=== PATIENT | male | born 1945 | race Caucasian/White ===

== ENCOUNTER 2023-07-17 12:02 | Inpatient (IN) | payer MEDICARE, OTHER, SELFPAY ==
[2023-07-17] VITALS (36 sets, daily range): BP systolic 71–163; BP diastolic 58–100; PULSE 47
[2023-07-17 09:44] LABS: Glucose - Point of Care 235 mg/dl (70-99)
--- NOTE | 2023-07-17 09:51 | EDRN ---
RSI by Dr Peterson: 20 mg etomidate, 150 of succinycholine. Runs of Vtac. weak pulses.
09:58 8.0 ET tube, 24 at the lip. +color change. 100 mcg fentanyl; 10 mg vecoronium.
[2023-07-17 09:57] LABS: HCO3 16.9 mmol/L (21-28); O2 Saturation % 99.5 % (94-98); PCO2 36 mmHg (35-48); PO2 127 mmHg (83-108); pH 7.28 (7.35-7.45)
[2023-07-17 10:05] LABS: % Basophils 0.6 % (0-2); % Eosinophils 2.7 % (0-6); % Immature Granulocytes 4.2 % (0-0.5); % Lymphocytes 26.2 % (20.5-51.1); % Monocytes 3.5 % (1.7-9.3); % Neutrophils 62.8 % (42.2-75.2); Absolute Basophils 0.1 10^3/uL (0-0.2); Absolute Eosinophils 0.4 10^3/uL (0-0.7); Absolute Immature Granulocytes 0.6 10^3/uL (0-0.05); Absolute Lymphocytes 3.5 10^3/uL (1.2-3.4); Absolute Monocytes 0.5 10^3/uL (0.1-0.6); Absolute Neutrophils 8.3 10^3/uL (1.4-6.5); Hemoglobin 13.5 g/dL (13.0-18.0); Mean Corp Hgb Conc. 32.9 g/dL (33.0-37.0); Mean Corpuscular Hgb 32.3 pg (27.0-31.0); Mean Corpuscular Volume 98.1 fL (80.0-94.0); Mean Platelet Volume 10.7 fL (7.4-10.4); Nucleated Red Blood Cells % 0 % (-); Platelet Count 140 10^3/uL (130-400); Red Blood Cell Count 4.18 10^6/uL (4.70-6.10); Red Cell Dist. Width 13.1 % (11.5-14.5); White Blood Cell Count 13.3 10^3/uL (4.8-10.8)
[2023-07-17 10:12] LABS: INR 1.34; PT 16.7 Sec (11.4-14.6)
[2023-07-17 10:13] LABS: APTT 27.6 Sec (23.4-35.0)
--- NOTE | 2023-07-17 10:14 | ED.GENMED ---
History of Present Illness
General
Chief Complaint: CODE
Source: patient and ambulance crew
Exam Limitations: clinical condition and altered mental status
Time Seen by Provider: 07/17/23 09:48
Nursing documentation reviewed up to this point in time: agreed with
Travel History
Have you had any contact with someone who has COVID-19?: Unable to Answer
Do you have any symptoms of coronavirus? Fever > 100 degrees, chills, cough, shortness of breath, sore throat, loss of taste or smell, muscle aches, or headache?: Unable to Answer
History of Present Illness
History of Present Illness:
Patient with history of coronary artery disease, presents to ED after witnessed syncopal episode while playing golf this morning. Per paramedics, police arrived at scene and patient was defibrillated, shortly prior to medics arrived. When arrived
at scene, medics found the patient to be in PEA rhythm. CPR was continued and patient was given 2 doses of epinephrine, with return of spontaneous pulse. As patient was about to be intubated prehospital, to protect airway, patient had another
arrest. Ventricular fibrillation noted and patient defibrillated once again, along with 2 more doses of epinephrine. Shortly afterwards, ROSC obtained and patient transferred to ED for evaluation. Prehospital intubation attempted without success.
Temporary supraglottic airway in place and being bagged on the way to the hospital. No additional information available at this time.
Review of Systems
Review of Systems
Unable to obtain full review of systems at this time due to: due to acuity
All Other Systems: Not applicable
Phy Exam
Physical Exam
Physical Exam:
Physical Exam
General: moderate distress, acutely ill. afebrile. unresponsive.
Head: nc/at.
Neck: supple. no jvd. carotid pulse palpable.
Heart: irregular, no murmur. equal radial pulses.
Lungs: pt being bagged with equal breath sounds bilaterally.
Abdomen: normal bowel sounds. no distention
Neuro: unresponsive to verbal or physical stimuli. spontaneous contraction of the upper extremity noted.
Skin: no rash
Extremities: no edema.
Course
Orders/Labs/Results
Orders:
Orders
07/17/23 09:39
ECG [Electrocardiogram (*1)] Urgent
Reason for Study: Abnormal EKG
CT Head W/o Iv Contrast Urgent
Comment:
Reason For Exam: post arrest
EKG- Treatment ONCE
07/17/23 09:44
Fentanyl Citrate/Pf [Sublimaze] 100 mcg .ROUTE .STK-MED ONE
Propofol 1,000,000 Mcg/100 ml [Diprivan] 1,000,000 mcg in 100 ml .ROUTE .STK-MED
07/17/23 09:46
ABG [Arterial Blood Gas] Urgent
%Oxygen/Room Air: 100
Complete Blood Count/With Diff Urgent
Comprehensive Metabolic Panel Urgent
Glycohemoglobin (HgbA1c) Urgent
Magnesium Urgent
Comment: ADD ON
NT-proBNP Urgent
Comment: ADD ON
PT/INR [Prothrombin Time] Urgent
PTT Urgent
Troponin I Urgent
07/17/23 09:47
Cr Chest Portable [CR Chest Portable - 1 View] Stat
Comment:
Reason For Exam: post intubation
Reason Study Needs to be Portable: Patient Unstable
If Reason is Other, explain: room 40
07/17/23 10:00
CT Cervical Spine W/o Iv Contr Urgent
Comment:
Reason For Exam: trauma
NPO
Allow oral meds: No
Allow clear liquids: No
Etomidate [Amidate 20 mg] 20 mg IV NOW STA
Fentanyl Citrate/Pf [Sublimaze] 100 mcg IV NOW STA
Succinylcholine Chloride [Anectine] 150 mg IV NOW STA
07/17/23 10:01
Propofol 1,000,000 Mcg/100 ml [Diprivan] 1,000,000 mcg in 100 ml IV NOW
Indication:: Light Sedation
Begin Infusion:: Now
Goal:: RASS 0 to -2
Maximum dose in mcg/kg/min:: 50
Initial dose based on RASS:: Yes
If RASS is:: +1 or pt hemodynamically unstable (SBP < 90mmHg), initiate at 10 mcg/kg/min
If RASS is:: +2, initiate at 20 mcg/kg/min
If RASS is:: greater than or equal to +3, initiate at 30 mcg/kg/min
Titration Instructions:: Titrate by 5-10 mcg/kg/min every 5 minutes until RASS 0 to -2 achieved.
Taper Instructions:: If RASS is at or below goal for 4 consecutive hours decrease infusion by
Taper Instructions:: 5-10 mcg/kg/min every 2 hours to off.
Over-sedation Instructions:: If CPOT 0-2 (at goal) AND RASS -3 to -5 (below goal) decrease sedative by
Over-sedation Instructions:: 50% first. If pain score remains at goal and RASS remains below goal in
Over-sedation Instructions:: 1 hour, decrease opioid infusion by 50%.
Notify provider:: immediately if patient exhibits signs/symptoms of propofol-related
Notify provider:: infusion syndrome.
Additional Instructions:: Patient MUST be mechanically ventilated and MUST receive analgesia.
07/17/23 10:20
Electrocardiogram (*1) Stat
Comment: ALREADY DONE IN ED
07/17/23 10:24
FentaNYL 1,000 MCG/100 ML [Sublimaze] 1,000 mcg in 100 ml .ROUTE .STK-MED
07/17/23 10:36
Add On- LAB Urgent
Tests Added?: ProBNP
07/17/23 11:00
FentaNYL 1,000 MCG/100 ML [Sublimaze] 1,000 mcg in 100 ml IV PER PROTOCOL
Fentanyl Citrate/Pf [Sublimaze] 50 mcg IV [id number] PRN
07/17/23 11:05
ABG [Arterial Blood Gas] Routine
%Oxygen/Room Air: 40
Comment: vent
Etomidate [Amidate] 40 mg .ROUTE .STK-MED ONE
Sterile Water [Sterile Water For Injection] 10 ml .ROUTE .STK-MED ONE
Succinylcholine Chloride [Succinylcholine] 200 mg .ROUTE .STK-MED ONE
Vecuronium [place] [Norcuron] 10 mg .ROUTE .STK-MED ONE
07/17/23 11:23
Records Request [Obtain Records] As Directed
Dates of Information to be Released: 02/24/21-present
Type of Information Requested: Discharge Summary
H&P
Lab Results
07/17/23 11:24
Admit/Transfer Patient As Directed
Co-Sign Provider:
Level of Care: Inpatient admission
Assign to:: ICU
Physician / Group: jnuito spicer
Diagnosis: v fib arrest
Reason for Hospitalization: v fib arrest
Expected length of stay greater than two midnights?: Yes
ELOS- Estimated Length of Stay in days: 7
I certify the patient meets the requirements for IP care: Yes
Undercover Cop Consult Urgent
Consulting Provider: Beatriz Alford
Was physician already notified: Yes
Reason for consult: v fib arrest
07/17/23 11:25
Code Status As Directed
Resuscitation Status: Full Code
07/17/23 11:31
Echo 2D MMode Color/Doppler Urgent
Reason for Study: v fib arrest
CARDIOLOGY CONSULT Urgent
Consulting Provider: Kj Sotelo
Was physician already notified: Yes
07/17/23 11:34
Add On- LAB Urgent
Tests Added?: Mg level
07/17/23 12:31
Acetaminophen [Tylenol/Feverall] 650 mg RECTAL Q4HPRN PRN
Bisacodyl [Dulcolax] 10 mg RECTAL [id number] PRN
Dextrose 50%-Water [Dextrose 50% Syringe] 12.5 grams IV [id number] PRN
Docusate W/Senna [Senokot-S] 1 tablet TUBE BIDPRN PRN
Glucagon [GlucaGen] 1 mg IM PRN PRN
Insulin Aspart Corrective Mod [Novolog Flexpen-Moderate Resistance] See Protocol SC Q6
Ondansetron Injectable [Zofran] 4 mg IV Q6HPRN PRN
Polyethylene Glycol Powder [Miralax] 17 grams PO DAILYPRN PRN
07/17/23 12:31
Add On- LAB Routine
Tests Added?: HgbA1C to today's lab
Activity As Directed
Activity Level: As Tolerated
Bedside Glucose Monitoring As Directed
Frequency: Q6H
Additional Instructions:: Change to q6h if pt on TPN, tube feeding or not eating
Vital Signs As Directed
Frequency: Per unit guidelines
DX Deep Vein Thrombosis Video Routine
07/17/23 14:00
Piperacillin/Tazo 3.375 Gram [Zosyn] 3.375 gram in 50 ml IV Q6H
07/17/23 16:45
Triglycerides Routine
Comment: baseline levels with propofol infusion
07/17/23 20:00
Heparin 5,000 units SC Q12
07/18/23 06:00
Complete Blood Count/With Diff IN AM
Comprehensive Metabolic Panel IN AM
Magnesium IN AM
Abnormal Lab Results
07/17/23 07/17/23 07/17/23
09:43 09:46 11:05
WBC 13.3 H 10^3/uL
(4.8-10.8)
RBC 4.18 L 10^6/uL
(4.70-6.10)
MCV 98.1 H fL
(80.0-94.0)
MCH 32.3 H pg
(27.0-31.0)
MCHC 32.9 L g/dL
(33.0-37.0)
MPV 10.7 H fL
(7.4-10.4)
Abs Immat Gran (auto) 0.6 H 10^3/uL
(0-0.05)
Absolute Neuts (auto) 8.3 H 10^3/uL
(1.4-6.5)
Absolute Lymphs (auto) 3.5 H 10^3/uL
(1.2-3.4)
Immature Gran % 4.2 H %
(0-0.5)
PT 16.7 H Sec
(11.4-14.6)
pH 7.28 L 7.26 L
(7.35-7.45) (7.35-7.45)
pCO2 49 H mmHg
(35-48)
pO2 127 H mmHg
(83-108)
HCO3 16.9 L mmol/L
(21-28)
ABG O2 Sat (Measured) 99.5 H %
(94-98)
Carbon Dioxide 16 L mmol/L
(22-30)
Glucose 224 H mg/dl
(70-99)
Calcium 8.0 L mg/dl
(8.4-10.2)
AST 94 H U/L
(17-59)
ALT 53 H U/L
(0-50)
Troponin I 0.109 H* ng/ml
POC Glucose 235 H mg/dl
(70-99)
07/17/23 09:46
07/17/23 10:40
Vital Signs
Initial and Last Documented VS:
Initial Vital Signs
Pulse Resp BP Pulse Ox
83 20 137/98 85
07/17/23 09:40 07/17/23 09:40 07/17/23 09:40 07/17/23 09:40
Last Documented Vital Signs
Temp Pulse Resp BP Pulse Ox
92.8 F L 67 20 140/83 100
07/17/23 18:00 07/17/23 18:00 07/17/23 18:00 07/17/23 18:00 07/17/23 18:00
Procedures
Intubations
Procedure completed by: Ruddy Peterson M.D.
Method of Intubation: glidescope
Tube size (cm): 8.0
Placement confirmed by: auscutation, CXR, placement corrected and direct visualization
Breath sounds after intubation: equal
Intubation complications: no complications
MDM/Problems Addressed
MDM/Problems Addressed:
Patient evaluated immediately upon arrival, along with (Cylindrical Mixer attending). Initial EKG with diffuse ST depression, without any acute ST elevation. Patient total downtime, after discussion with paramedics, approximately 40 minutes with
2 arrests in between. As such, decision made to obtain CT head, definitive airway, and reassess.
CT head: No acute findings.
Patient intubated with use of glidoscope. Chest x-ray confirmed placement.
Patient placed on propofol and subsequently fentanyl infusion, secondary to hypotension.
Repeat EKG performed and reviewed by who also spoke with patient's daughter (POA) -does not recommend Cylindrical Mixer intervention at this time. Patient will be admitted to ICU, on cooling protocol.
ICU attending notified via [facility] text.
Discussed with patient daughters, both at bedside as well as via phone.
Patient is full code at this time.
Critical care statement: A total of 100 minutes of critical care time was provided for this patient. This includes management of unstable vital signs, evaluation of the patient at bedside, reviewing the patient's pertinent medical records,
discussion with consultants, review of old EKGs and review of pertinent medical records. This time with separate from time utilized to perform the aforementioned documented procedures
*Critical Care Note
Total Time (30-74mins, 75-104mins- exclusive of procedures): 100 min
ED Attending Note
-
Portions of this chart may have been created with voice recognition software.� Occasional wrong word or��sound alike� substitutions may have occurred due to the inherent limitations of voice recognition software.
Discharge Plan
Departure
Patient Disposition: Admit
Date of Disposition: 07/17/23
Time of Disposition: 10:57
Admit to: ICU
Presentation/result/management discussed w/ accepting MD/DO: Hospitalist
Discharge Problem:
Cardiac arrest with ventricular fibrillation
Interventions
Interventions:
*Risk Screen - Suicide Last Done: 07/17/23 12:05
*General Assessment Last Done: 07/17/23 11:21
*Neglect/Abuse Screening Last Done: 07/17/23 10:40
*Nursing Disposition Last Done: 07/17/23 12:05
ED- Cardiac Assessment Last Done: 07/17/23 10:25
ED- Pulmonary Assessment Last Done: 07/17/23 10:25
Discharge Date and Time
Discharge Date/Time: 07/17/23 12:05
[2023-07-17] MEDS: DIPRIVAN 100 IV ×4 (10:18→21:26)
[2023-07-17 10:20] LABS: ALT (SGPT) 53 U/L (0-50); AST (SGOT) 94 U/L (17-59); Albumin 3.7 g/dl (3.5-5.0); Alkaline Phosphatase 65 U/L (38-126); Blood Urea Nitrogen 15 mg/dl (9-20); Chloride 106 mmol/L (98-107); Glucose 224 mg/dl (70-99); Potassium 4.1 mmol/L (3.5-5.1); Sodium 135 mmol/L (135-145); Total Bilirubin 1.1 mg/dl (0.2-1.3); Total Protein 6.6 g/dl (6.3-8.2); eGFR > 60.00
--- NOTE | 2023-07-17 10:24 | EDRN ---
CT Done; PCXR done conforming ET placement. Dr Peterson updating family.
[2023-07-17 10:40] LABS: Troponin I 0.109 ng/ml
[2023-07-17 10:49] LABS: Carbon Dioxide 16 mmol/L (22-30)
[2023-07-17] MEDS: SUBLIMAZE 100 IV ×3 (10:58→23:16)
--- NOTE | 2023-07-17 11:07 | PHANOTE ---
Med Rec Note- patient is not able to talk at this time, patient is not registered to call family and has no ecw to call md or see med list
--- NOTE | 2023-07-17 11:10 | HPS.HSE ---
Family Physician
-
Family Physician:
Chief Complaint
-
V-fib arrest
History of Present Illness
78-year-old male with a past medical history of coronary artery disease status post CABG 1992, status post PCI with stent placement x 2, and hyperlipidemia presents after having outside hospital V-fib arrest. Apparently patient was golfing, and had
a witnessed syncopal episode. Police found him to be in V-fib arrest, he was shocked. When EMS arrived, he was in PEA rhythm. He received CPR, epinephrine, with ROSC. Temporary subglottic airway was placed. En route to the hospital, he had
another episode of V-fib, and was defibrillated again. He received 2 more doses of epinephrine, ROSC was obtained. Patient was intubated in the ER, and currently on a fentanyl drip. TTM was began in the ER.
Medical History
Past Medical History
Past Medical History: Reports Other
Additional Past Medical History:
Hyperlipidemia
Coronary artery disease
Past Surgical History: Reports Other
Additional Past Surgical History:
CABG 1992
Hernia repair
Social History
Tobacco: Non-smoker
Alcohol: Occasional
Drug: None
Family History
Family History: Not pertinent
Allergies / Home Medications
Allergies reflects when Allergies were last updated in [facility].
Home Medications with original date entered in [facility]
Allergy/Medication List:
Allergies
Allergy/AdvReac Type Severity Reaction Status Date / Time
shellfish derived Allergy Unknown Verified 07/17/23 11:10
Review of Systems
-
Unable to obtain full review of systems at this time due to: Patient Intubation
Physical Exam
Vital Signs
Vital Signs
Temp Pulse Resp BP Pulse Ox
98.2 F 79 20 106/81 96
07/17/23 10:54 07/17/23 10:24 07/17/23 10:24 07/17/23 10:24 07/17/23 10:25
Physical Exam
General: Other (Intubated, sedated)
HEENT: NormoCephalic, Anicteric and Moist mucous membranes
Respiratory: Rhonchi
Cardiac: S1/S2
GI: Soft, Non Tender and Non Distended
Musculoskeletal: No Clubbing, No Cyanosis and No Edema
Neuro: Other (Nonresponsive)
Psych: Calm
Laboratory Results
-
07/17/23 09:46
07/17/23 10:40
Laboratory Results
PT 16.7 Sec (11.4-14.6) H 07/17/23 09:46
INR 1.34 07/17/23 09:46
APTT 27.6 Sec (23.4-35.0) 07/17/23 09:46
pH Cancelled 07/17/23 10:54
pCO2 Cancelled 07/17/23 10:54
pO2 Cancelled 07/17/23 10:54
HCO3 Cancelled 07/17/23 10:54
Total Bilirubin Cancelled 07/17/23 10:40
AST Cancelled 07/17/23 10:40
ALT Cancelled 07/17/23 10:40
Alkaline Phosphatase Cancelled 07/17/23 10:40
Troponin I Cancelled 07/17/23 10:40
Impression/Plan
-
78-year-old male with a past medical history of coronary artery disease status post CABG 1992, status post PCI with stent placement x 2, and hyperlipidemia presents after having outside hospital V-fib arrest. Apparently patient was golfing, and had
a witnessed syncopal episode. Police found him to be in V-fib arrest, he was shocked. When EMS arrived, he was in PEA rhythm. He received CPR, epinephrine, with ROSC. Temporary subglottic airway was placed. En route to the hospital, he had
another episode of V-fib, and was defibrillated again. He received 2 more doses of epinephrine, ROSC was obtained. Patient was intubated in the ER, and currently on a fentanyl drip. TTM was began in the ER.
#V-fib arrest
Appreciate log sawyer, cardiology input
Echo w/ EF 31%, no active indication for catheterization
Obtain records from [facility]
Continue supportive management, continue vent management as per log sawyer, TTM
Trend troponin, EEG
#Leukocytosis
Chest x-ray shows possible aspiration, start empiric Zosyn
Check cultures, trend fever and white count
#Metabolic acidosis
Follow-up on lactic acid
#Hyperglycemia
Check hemoglobin A1c, Accu-Cheks every 6 hours, sliding scale insulin every 6 hours
#Mildly elevated LFTs
Trend
DVT prophylaxis�subcu heparin
Okay for cardioversion and defibrillation, but no CPR
Total time spent to see the patient on the floor, examine the patient, review data and lab results, discuss treatment plan with patient, nursing staff around 75 minutes.
[2023-07-17 11:25] LABS: B.E. -5.4 mmol/L; O2 Saturation % 97.9 % (94-98); PCO2 49 mmHg (35-48); PO2 91 mmHg (83-108); pH 7.26 (7.35-7.45)
[2023-07-17 11:45] LABS: NT-proBNP 1210 pg/ml
[2023-07-17 12:17] LABS: Magnesium 1.8 mg/dl (1.6-2.3)
--- NOTE | 2023-07-17 12:21 | EDRN ---
With 11:45 BP, NSS that had been a med carrier opened for bolus.
--- NOTE | 2023-07-17 12:33 | CON.INTV ---
Consultation
Consultation Request
Date/Time Consultation Requested: 07/17/23
Date/Time Consultation Performed: 07/17/23
Performing Provider: Prashanth
Reason for Consultation: ICU
Medical History
-
History of Present Illness:
Patient is a 78-year-old male with previous history of CAD, presenting to ER after witnessed syncopal episode while playing golf this morning. 911 called, police arrived and patient was reportedly in V-fib arrest, AED used which defibrillated.
EMS arrived shortly after and patient was found to be in PEA rhythm. CPR was initiated and patient was given 2 doses of epinephrine with return of spontaneous circulation. He was attempted to be intubated prehospital but airway could not be
established. Temporary subglottic airway was placed and patient was bagged on the way to the hospital. He unfortunately suffered another cardiac arrest en route. V-fib was noted and patient was defibrillated again with 2 more doses of epinephrine.
ROSC was obtained at ER evaluation. Intubated in ER and admitted to ICU following initiation of TTM.
No prior known history available, his care is mostly at [facility]
Family denies history of lung disease, lifelong nonsmoker.
Did consume alcohol prior, but he had been cutting down in the past year and drinking non-alcoholic beer.
Family notes he was in good health prior to events.
They confirm that he would not want further resuscitation if this comes to it.
Past Medical History
Past Medical History: Other (see list below)
Social History
Tobacco: Non-smoker
Alcohol: Occasional
Drug: None
Family History
Family History: Other (CVA)
Allergies / Home Medications
Allergies
Allergy/AdvReac Type Severity Reaction Status Date / Time
shellfish derived Allergy Unknown Verified 07/17/23 11:10
Review of Systems
-
Unable to Obtain full review of systems at this time due to: Patient Intubation
Vitals / Labs / Diagnostic Testing
Vital Signs
Temp Pulse Resp BP Pulse Ox
98.1 F 79 20 84/63 91
07/17/23 11:30 07/17/23 11:30 07/17/23 11:30 07/17/23 11:45 07/17/23 12:17
Lab Data
07/17/23 09:46
07/17/23 10:40
Laboratory Results
07/17/23 07/17/23 07/17/23
09:46 10:54 11:05
PT 16.7 H
INR 1.34
APTT 27.6
pH 7.28 L Cancelled 7.26 L
pCO2 36 Cancelled 49 H
pO2 127 H Cancelled 91
HCO3 16.9 L Cancelled 22.0
O2 Delivery Level Cancelled
Diagnostic Testing:
Physical Exam
-
HEENT: Normocephalic, Anicteric and Moist Mucous Membranes
Cardiovascular: S1/S2 and Regular Rhythm
Respiratory: Clear and Non-Labored Respirations
GI: Soft, Distended and Non Tender
Neurology: Other (sedated/intubated, on TTM)
Skin: Other (cold, dry)
General: Other (critically ill)
Assessment
-
Patient is a 78-year-old male with previous history of CAD, presenting to ER after witnessed syncopal episode while playing golf this morning. 911 called, police arrived and patient was reportedly in V-fib arrest, AED used which defibrillated.
EMS arrived shortly after and patient was found to be in PEA rhythm. CPR was initiated and patient was given 2 doses of epinephrine with return of spontaneous circulation. He was attempted to be intubated prehospital but airway could not be
established. Temporary subglottic airway was placed and patient was bagged on the way to the hospital. He unfortunately suffered another cardiac arrest en route. V-fib was noted and patient was defibrillated again with 2 more doses of epinephrine.
ROSC was obtained at ER evaluation. Intubated in ER and admitted to ICU following initiation of TTM.
Acute cardiac arrest/VF s/p shock x 2 and CPR, PEA after 07/17/23
Mild leukocytosis
Metabolic acidosis
Hyperglycemia
Elevated LFTs
Elevated troponins
Conditions present MEDICATION SPECIALIST
CAD status post CABG
Hyperlipidemia
Plan
Sedated/intubated, unclear if he had MS recovery with ROSC
TTM initiated
CT Head neg
Pain/sedation: fent/prop, vec for shivering, follow protocol
RASS goals: -4
Neuro eval post awakening/rewarming
Hemodynamically stable, not requiring pressors.
Cardiac history reviewed--CAD s/p CAB history, follows outpatient cards
Trops elevated, continue to trend
VF history, will need eventual cath when rewarmed
ECHO pending
Resume meds per cards
Amio if needed
Cards following
Intubated for cardiac arrest
Vent settings reviewed, adjust as needed
ABGs reviewed, adequate for now
Acidosis is metabolic
Prior history of lung disease: none, lifelong nonmoker
Supplemental O2 as indicated to maintain sats > 89%
CXR/CT reviewed indicating edema vs aspiration, Zosyn added
NPO, resume diet when able
OGT placed with red output, traumatic intubation
Repeat CXR/AXR for distension and OG placement
Linotype Mechanic recommendations
Aspiration precautions, HOB > 30 degrees
Speech therapy eval can be considered if at elevated risk
GI prophylaxis if indicated for mechanical ventilation >48 hours, prior history of GERD, stress ulcer formation in the critically ill
Creat at baseline, no history of renal disease
Void trials
Follow urine output, critical I/Os
Replete electrolytes as needed
Met acidosis likely post cardiac arrest
Possible aspiration PNA
Started on empiric antibiotics
Check cultures, if neg can likely stop
Follow fever trend, WBC count
CBC stable, no signs of bleeding or coagulopathy.
Unknown if on Eliquis
Possible GIB, on SQ heparin
DVT prophylaxis as assessed based on risk, including mechanical SCDs
Can transfuse if indicated for Hb <7, plt < 10
INR WNL
No prior h/o diabetes or thyroid disease
Monitor accuchecks PRN/SS coverage if needed
Spoke with family at bedside regarding TTM, they are price of what to expect. They confirm he should be DNR. They do not want to cause further brain injury. Would accept cardioversion or defibrillation if needed but no CPR. Updated in chart.
Diagnostic Data
Chest X-Ray: 07/17/23- 1. Endotracheal tube with tip approximately 5.5 cm above the thuy.
2. Low lung volumes. Bilateral interstitial and airspace opacities as above. Aspiration is a differential consideration. Interstitial and mild alveolar edema is also a consideration.
CT Scan: Neck- 1. No acute fracture or malalignment.
2. Multilevel mild to moderate degenerative changes thoracic spine.
3. Post endotracheal tube placement. Abnormal increased interstitial and airspace opacity in the upper lungs. Aspiration is a consideration. Interstitial and alveolar edema is possible.
HEAD - No acute intracranial abnormality identified.
Echo:
PFT's:
Reports and relevant images were personally reviewed.
-----
Critical care time 80 mins -- this includes review of history, physical exam, medications, hemodynamic/ventilator parameters, laboratory data, imaging and discussion with house staff, pharmacy, respiratory therapy, drill press set up operator radial, and nursing.
--- NOTE | 2023-07-17 12:45 | PTCARENOTE ---
After pt's arrival and complete assessment done, [facility] was started on pt at 12:35, with a starting core temp 97.7.
--- NOTE | 2023-07-17 12:50 | W.PN.CD ---
Today's Communication / Plan
-
Impression / Plan
-
Impression: 78M with established CAD (CABG ' with subsequent PCIs) with sudden . It seems he collapsed while golfing. An AED was found and, by report, delivered a shock. When EMS arrived, they found PEA. He had ROSC with EMS ACLS. Then VF/VT
with ROSC after ACLS again. Now hemodynamically relatively stable. EKG shows AF with ST depressions and first troponin is 0.1.
Plan
Sudden - concerning for SCD
- Records requested from [facility] (Louis Mueller MD)
- Tele
- Echo now
- supportive care ongoing (cooling, etc)
- no acute indication for catheterization
CAD s/p CABG
Dyslipidemia
Critically ill 36 minutes used including discussion with RN, family, and cash reconciliation specialist.
Physical Exam
Vital Signs/Labs
Vital Signs
Temp Pulse Resp BP Pulse Ox
36.7 C 79 20 84/63 91
07/17/23 11:30 07/17/23 11:30 07/17/23 11:30 07/17/23 11:45 07/17/23 12:17
07/16/23 07/17/23 07/18/23
06:59 06:59 06:59
Actual Weight 205 lb 0.478 oz
07/17/23 09:46
07/17/23 10:40
PT 16.7 Sec (11.4-14.6) H 07/17/23 09:46
INR 1.34 07/17/23 09:46
APTT 27.6 Sec (23.4-35.0) 07/17/23 09:46
Magnesium Cancelled 07/17/23 10:40
07/17/23 07/17/23
09:46 10:40
Nwz-L-Ounvlbsvmab Pept 1210 Cancelled
LAB Results
07/17/23 07/17/23
09:46 10:40
Troponin I 0.109 H* Cancelled
Data Reviewed
-
Date of Service: July 17, 2023
--- NOTE | 2023-07-17 13:00 | PTCARENOTE ---
Pt arrived from ER via stretcher s/p cardiac arrest [place]. Pt was reported to have been defibrillated with AED when police arrived. When the EMS, pt was reported to then be in PEA. Pt returned to ROSC after CPR and epi doses.
Complete assessment done and documented. Pt seen by Dr Sotelo and Dr Pratima Alford.. Pt now unresponsive, Pupils equal +2, bilat sluggish to light. Pt with sl tremors noted. HR Afib, Fentanyl at 150 mcg/hr, propofol at 50 mcg/kg/min. Pt with #8 ETT,
24 at lip. Pt suctioned for scant white secretions. Vent settings at AC 16, TV 500, peep 5, and 40%, lobes diminished throughout. L NGT to Low int suction, draining min amt of dark red drainage. + air check in stomach. Kaur cath draining mod amt
yellow urine.
[2023-07-17] MEDS: DEMEROL 12.5 MG IV ×2 (13:02→13:15)
[2023-07-17] MEDS: MAGNESIUM SULFATE 50 IV (13:09)
[2023-07-17] MEDS: SUBLIMAZE 50 MCG IV ×3 (13:36→18:53)
[2023-07-17 13:49] LABS: Glucose - Point of Care 149 mg/dl (70-99)
[2023-07-17] MEDS: TYLENOL ORAL SOLUTION 650 MG TUBE ×3 (13:50→23:19)
[2023-07-17] MEDS: BUSPAR 30 MG TUBE ×3 (13:50→23:19)
[2023-07-17] MEDS: ZOSYN 50 IV ×2 (14:03→20:05)
[2023-07-17 14:10] LABS: B.E. -6.2 mmol/L; HCO3 21.8 mmol/L (21-28); O2 Saturation % 97.2 % (94-98); PCO2 52 mmHg (35-48); PO2 84 mmHg (83-108); pH 7.23 (7.35-7.45)
[2023-07-17 14:43] LABS: Glycohemoglobin (HgbA1c) 5.5 % (4.0-5.6)
--- NOTE | 2023-07-17 14:55 | EEG.RPT ---
Electroencephalogram Report
Recording
Date of EE07/17/23
Type of EEG: Routine
Length of EEG recordin minutes
Done with Video Recording: No
Patient Status: Emergency Room
Recording Conditions: Drowsy
Hyperventilation Performed: No
Photic Stimulation Performed: Yes
Report
LESS THAN 1 HOUR EEG REPORT
LESS THAN 1 HOUR EEG INTERPRETATION:
Moderately abnormal EEG for age due to diffuse bihemispheric slowing
CLINICAL CORRELATION:
This study was suggestive of mild diffuse cortical dysfunction without focal abnormality. No seizures were recorded.
Clinical correlation is advised.
METHODS:
A 21 channel digitized electroencephalogram (EEG) was performed at the bedside. The 10/20 international system of electrode placement was used with ECG and lateral/vertical eye movements recorded. The [employer] system was utilized.
QUALITY OF STUDY:
Fair-poor due to excessive continuous muscle artifact
ELECTROENCEPHALOGRAPHER IMPRESSION(S):
Background
Amplitude: Very low beta
Anterior-Posterior Organization: Not demonstrated
Maximum: Very low beta
Asymmetry: None
Sleep
Drowsiness present
Photic Stimulation
Failed to activate the record
ECG
Normal sinus rhythm
--- NOTE | 2023-07-17 16:00 | PTCARENOTE ---
Pt reached target temp 91.4 at 15:10. Levophed 2 mcg/min was started for low BP 81/[address] Andujar. Fentanyl boluses given following protocol for sl tremors. EEG and ECHO both done at bedside. ABG showing elevated CO2, AC increased from 16 to 20.
Hands and feet covered with socks. Anesthesia and IV team called for [place] placement and PICC placement. Pt's and daughter to room and updated earlier, and presently. BIS 80.
[2023-07-17 17:11] LABS: Lactic Acid 2.6 mmol/L (0.7-2.0)
[2023-07-17 17:12] LABS: Hemoglobin 13.4 g/dL (13.0-18.0); Mean Corp Hgb Conc. 33.5 g/dL (33.0-37.0); Mean Corpuscular Hgb 32.8 pg (27.0-31.0); Mean Platelet Volume 11.4 fL (7.4-10.4); Platelet Count 111 10^3/uL (130-400); Red Blood Cell Count 4.08 10^6/uL (4.70-6.10); Red Cell Dist. Width 13.2 % (11.5-14.5); White Blood Cell Count 15.1 10^3/uL (4.8-10.8)
[2023-07-17 17:14] LABS: Triglycerides 160 mg/dl (10-149)
[2023-07-17 17:17] LABS: ALT (SGPT) 58 U/L (0-50); AST (SGOT) 111 U/L (17-59); Albumin 3.7 g/dl (3.5-5.0); Alkaline Phosphatase 64 U/L (38-126); Blood Urea Nitrogen 18 mg/dl (9-20); Calcium 8.1 mg/dl (8.4-10.2); Carbon Dioxide 21 mmol/L (22-30); Chloride 104 mmol/L (98-107); Creatine Phosphokinase 712 U/L (55-170); Glucose 154 mg/dl (70-99); Magnesium 2.5 mg/dl (1.6-2.3); Phosphorus 4.2 mg/dl (2.5-4.5); Potassium 5.3 mmol/L (3.5-5.1); Sodium 133 mmol/L (135-145); Total Bilirubin 1.2 mg/dl (0.2-1.3); Total CK 712 U/L (55-170); Total Protein 6.6 g/dl (6.3-8.2); eGFR > 60.00
[2023-07-17 17:20] LABS: Prealbumin (Transthyretin) 16.2 mg/dl (17.6-36.0)
--- NOTE | 2023-07-17 17:25 | W.PN.ANS.LIN ---
Anesthesia IV & A-Line Note
- IV/Arterial Line
Left Wrist Arrow 20 (04/27)
Diagnosis: cardiac arrest
IV Line Comments: Multiple Attempts
Comment: two attempts on right wrist; second attempt on left wrist successful.
Allens test completed pre-procedure: Yes
A-Line Comments: Sterile technique as per standard protocol, Uneventful procedure, Seldinger technique used, Ultrasound guided insertion, Multiple attempts, Biopatch applied, Unsuccessful attempt
Funtioning A-line in situ: Yes
A-line Insertion Start Time: 17:15
A-line Insertion Stop Time: 17:23
A-line in at:: 17:23
[2023-07-17] MEDS: DOPamine 400 MG 250 IV (17:37)
[2023-07-17 17:42] LABS: CKMB 32.6 ng/ml (0.0-2.4)
[2023-07-17 18:28] LABS: Glucose - Point of Care 126 mg/dl (70-99)
--- NOTE | 2023-07-17 18:30 | PTCARENOTE ---
HR had dropped to 35-45, and Dr Andujar made aware and to room. Dopamine was started at 5 mcg/min. HR quickly increased to 90-100. Levophed was weaned off. Pt presently with drips fentanyl, propofol, along with dopamine. Pt sl bucking of vent, fentanyl
bolus was given and dose adjusted. Will start vecuronium as needed. L rad nikita intact and zero'd. R upper arm DL reported to be coiled. RESEARCH COMPLIANCE SPECIALIST to room and adjusted, CXR done.
--- NOTE | 2023-07-17 19:39 | VATNOTE ---
right picc redirected per protocol. repeat cxr ordered
[2023-07-17 19:50] LABS: B.E. -5.5 mmol/L; HCO3 21.6 mmol/L (21-28); O2 Saturation % 99.2 % (94-98); PCO2 47 mmHg (35-48); PO2 122 mmHg (83-108); pH 7.27 (7.35-7.45)
[2023-07-17] MEDS: DEXTROSE 50% SYRINGE 25 GRAMS IV (20:01)
[2023-07-17] MEDS: NOVOLIN R 10 UNITS IV (20:02)
[2023-07-17] MEDS: HEPARIN 5000 UNITS SC (20:04)
[2023-07-17] MEDS: REFRESH CELLUVISC GEL 1 DROPS OPHTH (20:04)
--- NOTE | 2023-07-17 21:46 | PTCARENOTE ---
Received patient from previous shift. pt with no neuro responses. no cough, gag, or corneal reflexes. no movement in all extremities. ETT 8.0 27 at the right lip. 20/500/5/40%. bloody secretions from the ETT. a-fib on the monitor. left radial a-line
zeroed and transduced. right picc adjusted by IV team, x-ray taken.
--- NOTE | 2023-07-17 22:13 | VATNOTE ---
retracted right picc 4cm per dr. guillaume's verbal order.
[2023-07-17 22:51] LABS: Hematocrit 38.7 % (39.0-52.0); Hemoglobin 13.6 g/dL (13.0-18.0); Mean Corp Hgb Conc. 35.1 g/dL (33.0-37.0); Mean Corpuscular Hgb 32.5 pg (27.0-31.0); Mean Corpuscular Volume 92.6 fL (80.0-94.0); Mean Platelet Volume 10.7 fL (7.4-10.4); Platelet Count 111 10^3/uL (130-400); Red Blood Cell Count 4.18 10^6/uL (4.70-6.10); White Blood Cell Count 12.3 10^3/uL (4.8-10.8)
[2023-07-17 23:00] LABS: Lactic Acid 1.7 mmol/L (0.7-2.0)
[2023-07-17 23:10] LABS: ALT (SGPT) 58 U/L (0-50); AST (SGOT) 111 U/L (17-59); Albumin 3.6 g/dl (3.5-5.0); Alkaline Phosphatase 63 U/L (38-126); Blood Urea Nitrogen 19 mg/dl (9-20); Calcium 8.3 mg/dl (8.4-10.2); Carbon Dioxide 20 mmol/L (22-30); Chloride 109 mmol/L (98-107); Creatine Phosphokinase 1009 U/L (55-170); Glucose 105 mg/dl (70-99); Magnesium 2.4 mg/dl (1.6-2.3); Phosphorus 2.9 mg/dl (2.5-4.5); Potassium 3.4 mmol/L (3.5-5.1); Sodium 137 mmol/L (135-145); Total Bilirubin 1.4 mg/dl (0.2-1.3); Total CK 1009 U/L (55-170); Total Protein 6.7 g/dl (6.3-8.2); eGFR > 60.00
[2023-07-17] MEDS: KCL 50 IV (23:29)
[2023-07-18] VITALS (15 sets, daily range): BP systolic 76–113; BP diastolic 57–71; PULSE 42–78; BMI 29.4
[2023-07-18] MEDS: DIPRIVAN 100 IV ×4 (00:58→18:00)
--- NOTE | 2023-07-18 01:05 | PTCARENOTE ---
pt reasssed, pupils 2 and sluggish, no corneal response. no cough or gag. urine output increase up to 600ml/hr pale yellow. HR dropped to the 40's twice increased dopamine. no further episodes of bradycardia. tapering propofol and fentanyl as
tolerated for BSAS.
[2023-07-18] MEDS: ZOSYN 50 IV ×4 (02:07→20:10)
[2023-07-18 04:04] LABS: % Basophils 0.4 % (0-2); % Eosinophils 1.2 % (0-6); % Immature Granulocytes 0.3 % (0-0.5); % Lymphocytes 18.9 % (20.5-51.1); % Neutrophils 75.2 % (42.2-75.2); Absolute Eosinophils 0.1 10^3/uL (0-0.7); Absolute Monocytes 0.4 10^3/uL (0.1-0.6); Hematocrit 40.8 % (39.0-52.0); Hemoglobin 14.1 g/dL (13.0-18.0); Mean Corp Hgb Conc. 34.6 g/dL (33.0-37.0); Mean Corpuscular Hgb 32.6 pg (27.0-31.0); Mean Corpuscular Volume 94.2 fL (80.0-94.0); Mean Platelet Volume 10.7 fL (7.4-10.4); Nucleated Red Blood Cells % 0 % (-); Platelet Count 113 10^3/uL (130-400); Red Blood Cell Count 4.33 10^6/uL (4.70-6.10); Red Cell Dist. Width 12.6 % (11.5-14.5); White Blood Cell Count 10.6 10^3/uL (4.8-10.8)
[2023-07-18 04:10] LABS: INR 1.28; PT 16.1 Sec (11.4-14.6)
[2023-07-18 04:11] LABS: APTT 30.4 Sec (23.4-35.0)
[2023-07-18 04:26] LABS: ALT (SGPT) 52 U/L (0-50); AST (SGOT) 106 U/L (17-59); Albumin 3.7 g/dl (3.5-5.0); Alkaline Phosphatase 65 U/L (38-126); Blood Urea Nitrogen 19 mg/dl (9-20); Calcium 8.7 mg/dl (8.4-10.2); Carbon Dioxide 20 mmol/L (22-30); Chloride 111 mmol/L (98-107); Direct Bilirubin 0.6 mg/dl (0.0-0.4); Glucose 129 mg/dl (70-99); Magnesium 2.3 mg/dl (1.6-2.3); Potassium 3.1 mmol/L (3.5-5.1); Sodium 140 mmol/L (135-145); Total Bilirubin 1.6 mg/dl (0.2-1.3); Total Protein 6.6 g/dl (6.3-8.2); eGFR > 60.00
[2023-07-18 04:32] LABS: Prealbumin (Transthyretin) 16.7 mg/dl (17.6-36.0)
[2023-07-18] MEDS: DOPamine 400 MG 250 IV ×3 (04:58→20:24)
[2023-07-18] MEDS: TYLENOL ORAL SOLUTION 650 MG TUBE ×4 (05:04→23:56)
[2023-07-18] MEDS: SUBLIMAZE 100 IV ×2 (05:19→15:49)
[2023-07-18] MEDS: KCL 100 IV (05:21)
--- NOTE | 2023-07-18 06:06 | PTCARENOTE ---
corneals now present bilaterally. moving fingers on both hands but not following commands.
[2023-07-18 08:22] LABS: B.E. -4.8 mmol/L; HCO3 19.7 mmol/L (21-28); O2 Saturation % 99.2 % (94-98); PCO2 34 mmHg (35-48); PO2 121 mmHg (83-108); pH 7.37 (7.35-7.45)
--- NOTE | 2023-07-18 08:36 | W.PN.CD ---
Addendum entered and electronically signed by Kj Sotelo MD 07/18/23 14:08:
Records Received
Medications: alirocumab 150 every two weeks (no ASA listed)
Testing
Echo: 'No results recorded'
Stress test: 'Refuses stress test.'
Labs TC 253, HDL 72, LDL 166 (May 2023)
CAD with 'CABG 1992 and PTCA 2011'
Addendum entered and electronically signed by Kj Sotelo MD 07/18/23 09:55:
Discussed with his daughter
- No history of depressed EF
- Severe myalgia with statins but OK with PSCK9i. Period of time without treatment. Labeled with familial dyslipidemia.
- GOC seem to be that he recover to baseline. Not in favor of trach/PEG/SNF placement pathway. Will need to sort out with whole family if it comes to that
- updated her on cardiac plan. Deferred questions regarding current and future neurologic status to more appropriate team members.
Original Note:
Today's Communication / Plan
-
- supportive care
- records/family for background (EF, etc)
- likely LHC and ICD before d/c
Impression / Plan
-
Impression: 78M with established CAD (CABG ' with subsequent PCIs) with sudden . It seems he collapsed while golfing. An AED was found and, by report, delivered a shock. When EMS arrived, they found PEA. He had ROSC with EMS ACLS. Then VF/VT
with ROSC after ACLS again. EKG shows AF with ST depressions and peak troponin is 19.
Plan
Sudden - concerning for SCD
- Records requested from [facility] (Louis Mueller MD) - still not arrived. I will call at 9AM.
- Tele shows AF with CVR
- Echo below
- supportive care ongoing (cooling, etc)
- no acute indication for catheterization -> suspect he will get before discharge.
AF - unclear if rhythm is NSR or flutter now -> check EKG
CAD s/p CABG - medical therapy
Dyslipidemia - medical therapy
Dispo
- Critically ill 34 minutes used including discussion with RN
- Daughter/medical POA/PA arriving this AM -> will get further background from her.
Subjective:Sedated and intubated
TTE July 16: Severely reduced left ventricular systolic function. Left ventricular ejection fraction is 31%. Regional wall motion abnormalities (below) consistent with CAD. Mild to moderate mitral regurgitation.
Physical Exam
Vital Signs/Labs
Vital Signs
Temp Pulse Resp BP Pulse Ox
33.5 C L 50 20 88/59 100
07/18/23 08:00 07/18/23 07:00 07/18/23 07:00 07/18/23 06:57 07/18/23 07:35
07/17/23 07/18/23 07/19/23
06:59 06:59 06:59
Actual Weight 199 lb 1.239 oz
PT 16.1 Sec (11.4-14.6) H 07/18/23 03:49
INR 1.28 07/18/23 03:49
APTT 30.4 Sec (23.4-35.0) 07/18/23 03:49
Magnesium Cancelled 07/18/23 04:00
Triglycerides 160 mg/dl (10-149) H 07/17/23 16:45
07/17/23 07/17/23
09:46 10:40
Sme-M-Sehzfpuqckh Pept 1210 Cancelled
LAB Results
07/17/23 07/17/23 07/17/23
09:46 10:40 16:45
Troponin I 0.109 H* Cancelled 19.800 H* D
07/17/23 07/18/23
22:42 04:00
Troponin I 18.500 H* Cancelled
Physical Exam
Constitutional: No acute distress
EENT: Anicteric
Cardiovascular: Rhythm & rate is regular, Systolic murmur absent and Diastolic murmur absent
Respiratory: Respiratory effort normal
GI: Soft
Data Reviewed
-
Date of Service: July 18, 2023
--- NOTE | 2023-07-18 08:39 | W.PN.HOSP.TC ---
Today's Communication/Plan
-
See bold
Assessment / Plan
Assessment / Plan
78-year-old male with a past medical history of coronary artery disease status post CABG 1992, status post PCI with stent placement x 2, and hyperlipidemia presents after having outside hospital V-fib arrest. Apparently patient was golfing, and had
a witnessed syncopal episode. Police found him to be in V-fib arrest, he was shocked. When EMS arrived, he was in PEA rhythm. He received CPR, epinephrine, with ROSC. Temporary subglottic airway was placed. En route to the hospital, he had
another episode of V-fib, and was defibrillated again. He received 2 more doses of epinephrine, ROSC was obtained. Patient was intubated in the ER, and currently on a fentanyl drip. TTM was began in the ER.
#V-fib arrest
Appreciate inner tube tuber machine operator, cardiology input
Echo w/ EF 31%, no active indication for catheterization
Records from [facility] received
Continue vent management as per inner tube tuber machine operator, TTM
EEG reviewed
Continue dopamine drip, Levophed drip for MAP greater than 65, wean as tolerated
Will need left heart cath and ICD prior to DC
Will need neuro consult after off of sedation for neurologic recovery assessment
#Cardiogenic shock
Continue dopamine drip, Levophed drip for MAP greater than 65
#Possible atrial fibrillation
EKG shows probable atrial fibrillation, follow-up on recommendations by cardiology
#Leukocytosis
Chest x-ray shows possible aspiration, continue empiric Zosyn
Cultures pending, trend fever and white count
#Metabolic acidosis
Lactic acid normalized
#Hyperglycemia
Hemoglobin A1c 5.5, Accu-Cheks every 6 hours, sliding scale insulin every 6 hours
#Hypokalemia
Replete, recheck a.m. labs
#Mildly elevated LFTs
Trend
DVT prophylaxis�subcu heparin
Okay for cardioversion and defibrillation, but no CPR
Total time spent to see the patient on the floor, examine the patient, review data and lab results, discuss treatment plan with patient, nursing staff around 50 minutes.
Physical Exam
General: Intubated and sedated no acute distress
HEENT: Normocephalic, Atraumatic, EOMI, MMM
Respiratory: Coarse breath sounds
Cardiac: Normal S1/S2, Regular Rate and Rhythm
GI: Soft, Nontender, Nondistended, Normal Bowel Sounds
Extremities: No Clubbing, Cyanosis, or Edema
Neuro: Sedated
Anticipated Discharge: > 48 hours
Subjective/Interval History
-
Date of Service: July 18, 2023
Patient intubated and sedated.
Objective Data
-
Labs:
Laboratory Results
07/17/23 07/18/23 07/18/23
22:42 03:49 04:00
WBC 12.3 H 10.6 Cancelled
Hgb 13.6 14.1 Cancelled
Hct 38.7 L 40.8 Cancelled
Plt Count 111 L 113 L Cancelled
PT 16.1 H
INR 1.28
APTT 30.4
HCO3
Sodium 137 140 Cancelled
Potassium 3.4 L D 3.1 L Cancelled
Chloride 109 H 111 H Cancelled
Carbon Dioxide 20 L 20 L Cancelled
BUN 19 19 Cancelled
Creatinine 0.9 0.9 Cancelled
Glucose 105 H 129 H Cancelled
Calcium 8.3 L 8.7 Cancelled
Total Bilirubin 1.4 H 1.6 H Cancelled
AST 111 H 106 H Cancelled
ALT 58 H 52 H Cancelled
Alkaline Phosphatase 63 65 Cancelled
07/18/23 07/18/23 07/18/23
08:05 10:00 16:00
WBC Pending Pending
Hgb Pending Pending
Hct Pending Pending
Plt Count Pending Pending
PT
INR
APTT
HCO3 19.7 L
Sodium Pending Pending
Potassium Pending Pending
Chloride Pending Pending
Carbon Dioxide Pending Pending
BUN Pending Pending
Creatinine Pending Pending
Glucose Pending Pending
Calcium Pending Pending
Total Bilirubin Pending Pending
AST Pending Pending
ALT Pending Pending
Alkaline Phosphatase Pending Pending
07/18/23 07/18/23
20:00 22:00
WBC Pending
Hgb Pending
Hct Pending
Plt Count Pending
PT
INR
APTT
HCO3 Pending
Sodium Pending
Potassium Pending
Chloride Pending
Carbon Dioxide Pending
BUN Pending
Creatinine Pending
Glucose Pending
Calcium Pending
Total Bilirubin Pending
AST Pending
ALT Pending
Alkaline Phosphatase Pending
Vital Signs:
Vital Signs
Temp Pulse Resp BP Pulse Ox
92.3 F L 50 20 88/59 100
07/18/23 08:00 07/18/23 07:00 07/18/23 07:00 07/18/23 06:57 07/18/23 07:35
I&O
07/17/23 07/18/23 07/19/23
06:59 06:59 06:59
Intake Total 1177.1 / 1250.9 145.6 / 145.6
Output Total 3205 / 3315 150 / 150
Balance -2027.9 / -2064.1 -4.4 / -4.4
[2023-07-18] MEDS: REFRESH CELLUVISC GEL 1 DROPS OPHTH ×2 (08:40→20:10)
[2023-07-18] MEDS: PROTONIX IV 40 MG IV (08:41)
[2023-07-18] MEDS: NSS (PRESERVATIVE FREE) 10 ML IV (08:41)
[2023-07-18] MEDS: BUSPAR 30 MG TUBE ×3 (08:41→23:56)
[2023-07-18] MEDS: HEPARIN 5000 UNITS SC ×2 (08:41→20:10)
--- NOTE | 2023-07-18 09:55 | W.PN.INTV ---
Today's Communication / Plan
Recommendations
Continue with therapeutic hypothermia
Rewarm today at 3 PM
Once rewarming has been completed we need to remove him entirely from sedation and only use it prn for agitation
Keep core temperature probe attached at least another 24-48 hours s/p rewarming to monitor for fever
Check sputum Cx, blood Cx
Replete K>4, Mg>2
Wean off pressors as tolerated
If no mental status once off all sedation then will obtain repeat CT head and consider brain MRI and repeat EEG with neuro consult
Ischemic eval if he does improve
Guarded prognosis
Assessment
-
Patient is a 78-year-old male with previous history of CAD, presenting to ER after witnessed syncopal episode while playing golf this morning. 911 called, police arrived and patient was reportedly in V-fib arrest, AED used which defibrillated.
EMS arrived shortly after and patient was found to be in PEA rhythm. CPR was initiated and patient was given 2 doses of epinephrine with return of spontaneous circulation. He was attempted to be intubated prehospital but airway could not be
established. Temporary subglottic airway was placed and patient was bagged on the way to the hospital. He unfortunately suffered another cardiac arrest en route. V-fib was noted and patient was defibrillated again with 2 more doses of epinephrine.
ROSC was obtained at ER evaluation. Intubated in ER and admitted to ICU following initiation of TTM.
Acute cardiac arrest/VF s/p shock x 2 and CPR, PEA after 07/17/23
Shock on vasopressors - likely due to sedation
Aspiration PNA
Mild leukocytosis
Metabolic acidosis
Hyperglycemia
Elevated LFTs
Elevated troponin - likely due to ACS in setting of CPR (EKG with yessenia-inferolateral ST-depressions with frequent PVCs) and TTE with apex + apical segment hypokinesis
Acute HFrEF with stage III diastolic dysfunction
Mild-moderate MR with mild pHTN (PASP: 36mmHg)
Atrial fibrillation - new onset
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
CAD status post CABG
Hyperlipidemia
Plan
Sedated/intubated, unclear if he had MS recovery with ROSC
TTM initiated
CT Head neg
Pain/sedation: fent/prop, vec for shivering, follow protocol
RASS goals: -4
Neuro eval post awakening/rewarming
Hemodynamically stable, not requiring pressors.
Cardiac history reviewed--CAD s/p CAB history, follows outpatient cards
Trops elevated, continue to trend
VF history, will need eventual cath when rewarmed
ECHO reviewed
Resume meds per cards
Maintain HR<110 and >50
Amio if needed
Cards following
He will need an ischemic eval with [facility] once he is prognosticated depending if he awakens and begins to follow commands - currently there is no gag reflex or pupillary light reflex
Intubated for cardiac arrest
Vent settings reviewed, adjust as needed
ABGs reviewed, adequate for now
Acidosis is metabolic
Prior history of lung disease: none, lifelong nonmoker
Titrate FiO2 and PEEP to maintain sats > 94%
CXR/CT reviewed indicating edema vs aspiration, Zosyn added
Check sputum Cx and blood Cx
NPO, resume diet when able
OGT placed with red output, traumatic intubation --> trend Hb and continue PPI
Criminal Psychologist recommendations reviewed
Aspiration precautions, HOB > 30 degrees
GI prophylaxis is indicated
Creat at baseline, no history of renal disease
Void trials
Follow urine output, critical I/Os
Replete electrolytes as needed
Met acidosis likely post cardiac arrest
Possible aspiration PNA
Started on empiric antibiotics
Cx being checked as stated above
Follow fever trend, WBC count
CBC stable, no signs of bleeding or coagulopathy.
Possible GIB, on SQ heparin
DVT prophylaxis as assessed based on risk, including mechanical SCDs- continue HSQ
Can transfuse if indicated for Hb <7, plt < 10
INR WNL
No prior h/o diabetes or thyroid disease
Monitor accuchecks PRN/SS coverage if needed
Dr. Andujar had spoken with family at bedside regarding TTM, they are price of what to expect. They confirm he should be DNR. They do not want to cause further brain injury. Would accept cardioversion or defibrillation if needed but no CPR. Updated
in chart.
I updated the daughter today at bedside who rounded with us and I answered all her questions. Emotional support was also provided.
Critical care statement: A total of 52 minutes of critical care time was provided for this patient today. This includes management of unstable vital signs, evaluation of the patient at bedside, reviewing the patient's pertinent medical records
including radiographs, microbiology, laboratory evaluations, and discussion with primary team, consultants, pharmacy, nutrition, physical therapy, case management, charge nurse, critical care nursing, and respiratory therapy.
Diagnostic Data
Chest X-Ray: 07/17/23- 1. Endotracheal tube with tip approximately 5.5 cm above the thuy.
2. Low lung volumes. Bilateral interstitial and airspace opacities as above. Aspiration is a differential consideration. Interstitial and mild alveolar edema is also a consideration.
CT Scan: Neck- 1. No acute fracture or malalignment.
2. Multilevel mild to moderate degenerative changes thoracic spine.
3. Post endotracheal tube placement. Abnormal increased interstitial and airspace opacity in the upper lungs. Aspiration is a consideration. Interstitial and alveolar edema is possible.
HEAD - No acute intracranial abnormality identified.
Echo: 07-17-2023
Technically difficult study.
Severely reduced left ventricular systolic function. Left ventricular ejection
fraction is 31%.
Regional wall motion abnormalities (below) consistent with CAD.
Mild to moderate mitral regurgitation.
Mild tricuspid regurgitation. Estimated pulmonary artery pressure of 36 mmHg.
No prior study available for comparison.
Reports and relevant images were personally reviewed.
Subjective Dataa
Subjective Data
Date of Service:
Date of Service: July 18, 2023
Chief Complaint: Wrapper Layer And Examiner Soft Work Follow Up
Subjective:
Dopamine at 8mcg/kg/min this AM; levo off overnight but restarted this AM - now on levo at 1mcg/min. Prop at 30mcg/kg/min and fent at 100mcg/hr. He is intubated at 40% peep of 5. ETT secretions scanty. Daughter at bedside - I answered all her
questions. BP 88/59 and HR 49, SpO2 97%.
Review of Systems
General: Unobtainable - Sedation
Objective Data
Data Reviewed
Vital Signs / I&O / Oxygen:
Vital Signs
Temp Pulse Resp BP Pulse Ox
92 F L 50 20 88/59 100
07/18/23 10:00 07/18/23 07:00 07/18/23 07:00 07/18/23 06:57 07/18/23 07:35
Intake and Output
07/17/23 07/18/23 07/19/23
06:59 06:59 06:59
Intake Total 1177.1 / 1250.9 277.0 / 277.0
Output Total 3205 / 3315 355 / 355
Balance -2027.9 / -2064.1 -78.0 / -78.0
SaO2 [A/C] 100
SaO2 100
Physical Exam
General: Sweats (negative) and Other (Intubated/sedated)
HEENT: Normocephalic and Anicteric
Cardiovascular: Peripheral Edema (negative) and Other (Bradycardic)
Respiratory: Wheeze (negative), Rhonchi (negative), Non-Labored Respirations, ET Tube and Other (Mechanical/coarse breath sounds heard bilaterally)
GI: Soft and Non Distended
Neurology: Unresponsive and Other (Pupils are fixed at +5 on the left, +4 on the right with no corneal reflex bilaterally, absent pupillary light reflex, absent gag or cough reflex; no withdrawal to pain in any extremity and no spontaneous movement
seen)
Skin: Dry
Labs/Micro/Reports
Laboratory Results
07/17/23 07/17/23 07/17/23
09:46 10:54 11:05
PT 16.7 H
INR 1.34
APTT 27.6
pH Cancelled 7.26 L
pCO2 Cancelled 49 H
pO2 Cancelled 91
HCO3 Cancelled 22.0
O2 Delivery Level Cancelled
07/17/23 07/17/23 07/18/23
13:38 19:45 03:49
PT 16.1 H
INR 1.28
APTT 30.4
pH 7.23 L 7.27 L
pCO2 52 H 47
pO2 84 122 H
HCO3 21.8 21.6
O2 Delivery Level
07/18/23
08:05
PT
INR
APTT
pH 7.37
pCO2 34 L
pO2 121 H
HCO3 19.7 L
O2 Delivery Level
--- NOTE | 2023-07-18 10:07 | CM ---
CM following re: discharge planning.
Reviewed pt's chart, met with pt and pt's daughter Joanne at bedside.
Pt is a 78 year old male, admitted with primary dx of Acute cardiac arrest/VF s/p shock x 2 and CPR. Pt remains intubated and sedated, continue supportive care.
per daughter Joanne, pt lives with spouse in a 3SH, 2 steps to enter, has 3 supportive daughters. Per daughter, pt's spouse has functional limitations and pt was caring for her. 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
walked up to 5 miles daily.
Pt's daughter stated that pt's spouse will be here shortly and she is requested spiritual services.
PCP: Louis Mueller, rail bonder at [facility]
Pharmacy: pt's daughter stated she is not aware and she will find out
D/C plan: uncertain at this time and will depend on pt's progress.
CM will follow with discharge plan updates as hospitalization progresses
[2023-07-18] MEDS: DEMEROL 12.5 MG IV (10:10)
[2023-07-18 10:29] LABS: Hematocrit 40.9 % (39.0-52.0); Hemoglobin 14.3 g/dL (13.0-18.0); Mean Corpuscular Hgb 32.6 pg (27.0-31.0); Mean Corpuscular Volume 93.2 fL (80.0-94.0); Mean Platelet Volume 10.9 fL (7.4-10.4); Platelet Count 116 10^3/uL (130-400); Red Blood Cell Count 4.39 10^6/uL (4.70-6.10); White Blood Cell Count 11.1 10^3/uL (4.8-10.8)
[2023-07-18 10:57] LABS: ALT (SGPT) 45 U/L (0-50); AST (SGOT) 73 U/L (17-59); Albumin 2.7 g/dl (3.5-5.0); Alkaline Phosphatase 50 U/L (38-126); Blood Urea Nitrogen 16 mg/dl (9-20); Calcium 6.5 mg/dl (8.4-10.2); Carbon Dioxide 18 mmol/L (22-30); Chloride 118 mmol/L (98-107); Creatine Phosphokinase 763 U/L (55-170); Glucose 104 mg/dl (70-99); Magnesium 1.8 mg/dl (1.6-2.3); Phosphorus 2.9 mg/dl (2.5-4.5); Potassium 3.4 mmol/L (3.5-5.1); Sodium 141 mmol/L (135-145); Total Bilirubin 1.1 mg/dl (0.2-1.3); Total CK 763 U/L (55-170); Total Protein 5.4 g/dl (6.3-8.2); eGFR > 60.00
[2023-07-18 11:27] LABS: CKMB 55.4 ng/ml (0.0-2.4)
--- NOTE | 2023-07-18 11:43 | PTCARENOTE ---
Addendum entered by Chayito Rivers RN 07/18/23 16:20:
Remains on Fentanyl and Propofol
Original Note:
Pt remains unresponsive. no corneal or gag reflex. Remains of Fenanyl and Propofol gtts. Attempted to wean sedation this am but shivering noted. PRN Demerol given.
Afib HR 43-50. Dopamine gtt rate increased per protocol. Levophed restarted this am for MAP 61 but again weaned off.
SpO2 97-100% on A/C 20/500/40%/5. Lungs CTA. No sputum suctioned from ETT.
NGT to low intermittent suction. >150ml clear red output so far this shift. (Noted to be on liquid tylenol via tube, which is red in color). Abdomen distended. Very hypoactive bowel sounds.
Poor urine output.
Re faxed request for medical record to pt's patient care secretary.
Daughter at bedside and up dated.
[2023-07-18 11:45] LABS: Glucose - Point of Care 107 mg/dl (70-99)
[2023-07-18] MEDS: CALCIUM GLUCONATE 100 IV (13:58)
--- NOTE | 2023-07-18 15:27 | PTCARENOTE ---
Rewarming started at 1502 via [employer] sun TMS.
Pupils unequal and irregular shaped. Left 4mm, right 3mm. Both sluggish.
No corneal, cough or gag reflex noted. Very slight movement to stimuli/pain in all extremities.
Remains on Fentanyl and Propofol gtts. BSAS 1 at this time.
Afib/flutter. HR 69. Weaning Dopamine. +1 generalized edema.
Lungs CTA.
NGT draining green bile.
Urine output clear yellow.
All other assessments unchanged.
[2023-07-18] MEDS: SUBLIMAZE 50 MCG IV (15:48)
[2023-07-18 16:29] LABS: Hematocrit 37.6 % (39.0-52.0); Hemoglobin 13.1 g/dL (13.0-18.0); Mean Corp Hgb Conc. 34.8 g/dL (33.0-37.0); Mean Corpuscular Hgb 32.3 pg (27.0-31.0); Mean Corpuscular Volume 92.8 fL (80.0-94.0); Mean Platelet Volume 10.8 fL (7.4-10.4); Red Blood Cell Count 4.05 10^6/uL (4.70-6.10); Red Cell Dist. Width 13.1 % (11.5-14.5); White Blood Cell Count 10.7 10^3/uL (4.8-10.8)
[2023-07-18 16:36] LABS: Lactic Acid 1.2 mmol/L (0.7-2.0)
[2023-07-18 17:11] LABS: Platelet Count 95 10^3/uL (130-400)
[2023-07-18 17:24] LABS: Urine Albumin Trace (Neg - Trace); Urine Bilirubin Negative (Negative); Urine Character Clear (Clear); Urine Color Yellow; Urine Glucose Negative (Negative); Urine Ketone Trace (Negative); Urine Leukocyte Negative (Negative); Urine Nitrite Negative (Negative); Urine Occult Blood Negative (Negative); Urine Specific Gravity 1.015 (<1.030); Urine Urobilinogen Negative (Neg - 1+)
[2023-07-18 17:29] LABS: ALT (SGPT) 50 U/L (0-50); AST (SGOT) 86 U/L (17-59); Albumin 3.7 g/dl (3.5-5.0); Alkaline Phosphatase 67 U/L (38-126); Blood Urea Nitrogen 20 mg/dl (9-20); Calcium 9.3 mg/dl (8.4-10.2); Carbon Dioxide 18 mmol/L (22-30); Chloride 110 mmol/L (98-107); Creatine Phosphokinase 681 U/L (55-170); Estimated Creatinine Clearance 62 ml/min; Glucose 120 mg/dl (70-99); Magnesium 2.2 mg/dl (1.6-2.3); Phosphorus 3.8 mg/dl (2.5-4.5); Potassium 3.8 mmol/L (3.5-5.1); Sodium 138 mmol/L (135-145); Total Bilirubin 1.4 mg/dl (0.2-1.3); Total CK 681 U/L (55-170); Total Protein 6.8 g/dl (6.3-8.2); eGFR > 60.00
[2023-07-18 18:18] LABS: Glucose - Point of Care 107 mg/dl (70-99)
[2023-07-18 20:02] LABS: B.E. -3.5 mmol/L; HCO3 20.4 mmol/L (21-28); O2 Saturation % 99.8 % (94-98); PCO2 33 mmHg (35-48); PO2 159 mmHg (83-108)
[2023-07-18 20:07] LABS: Hematocrit 40.5 % (39.0-52.0); Hemoglobin 14.4 g/dL (13.0-18.0); Mean Corp Hgb Conc. 35.6 g/dL (33.0-37.0); Mean Corpuscular Hgb 32.3 pg (27.0-31.0); Mean Corpuscular Volume 90.8 fL (80.0-94.0); Mean Platelet Volume 10.9 fL (7.4-10.4); Platelet Count 104 10^3/uL (130-400); Red Blood Cell Count 4.46 10^6/uL (4.70-6.10); Red Cell Dist. Width 12.9 % (11.5-14.5); White Blood Cell Count 11.5 10^3/uL (4.8-10.8)
[2023-07-18 20:19] LABS: ALT (SGPT) 50 U/L (0-50); AST (SGOT) 81 U/L (17-59); Albumin 3.6 g/dl (3.5-5.0); Alkaline Phosphatase 65 U/L (38-126); Blood Urea Nitrogen 20 mg/dl (9-20); Calcium 9.2 mg/dl (8.4-10.2); Carbon Dioxide 19 mmol/L (22-30); Chloride 109 mmol/L (98-107); Estimated Creatinine Clearance 62 ml/min; Glucose 133 mg/dl (70-99); Lactic Acid 1.3 mmol/L (0.7-2.0); Magnesium 2.2 mg/dl (1.6-2.3); Phosphorus 3.2 mg/dl (2.5-4.5); Potassium 3.7 mmol/L (3.5-5.1); Sodium 139 mmol/L (135-145); Total Bilirubin 1.4 mg/dl (0.2-1.3); Total Protein 6.7 g/dl (6.3-8.2); eGFR > 60.00
--- NOTE | 2023-07-18 20:44 | PTCARENOTE ---
received patient from previous shift. pupils unequal left 3 right 2 reactive to light, sluggish. no cough or gag no corneal response. ETT 8 now 24 at the center. AC20/500/5/40%. lungs clear, minimal secretions. a-fib on the monitor. left radial
a-line positional, arm board removed, blood drawn. left nare dobhoff to low intermittent suction. brown drainage. mouth care completed. linens changed, auguste care done. MONROE called in and was updated on patient will call back around 3-4am.
[2023-07-19] VITALS (25 sets, daily range): BP systolic 79–172; BP diastolic 44–87; PULSE 70–115; BMI 29.5
[2023-07-19 00:03] LABS: Glucose - Point of Care 82 mg/dl (70-99)
[2023-07-19] MEDS: SUBLIMAZE 100 IV ×2 (00:22→22:11)
[2023-07-19 00:26] LABS: INR 1.36; PT 16.6 Sec (11.4-14.6)
[2023-07-19 00:27] LABS: APTT 35.7 Sec (23.4-35.0)
[2023-07-19 00:45] LABS: Prealbumin (Transthyretin) 14.9 mg/dl (17.6-36.0)
[2023-07-19] MEDS: DIPRIVAN 100 IV ×2 (01:01→18:44)
[2023-07-19] MEDS: ZOSYN 50 IV ×4 (02:11→19:34)
[2023-07-19] MEDS: DOPamine 400 MG 250 IV (02:19)
--- NOTE | 2023-07-19 03:22 | PTCARENOTE ---
while redressing a-line pt opened his eyes. pupils still 3mm and reactive. asked pt to squeeze hands, raise eyebrows, nod head, lift arms. he was unable to follow commands. pt is moving bilateral upper extremities.
[2023-07-19 03:54] LABS: Hematocrit 39.2 % (39.0-52.0); Hemoglobin 13.8 g/dL (13.0-18.0); Mean Corp Hgb Conc. 35.2 g/dL (33.0-37.0); Mean Corpuscular Hgb 32.2 pg (27.0-31.0); Mean Corpuscular Volume 91.6 fL (80.0-94.0); Mean Platelet Volume 10.8 fL (7.4-10.4); Platelet Count 106 10^3/uL (130-400); Red Blood Cell Count 4.28 10^6/uL (4.70-6.10); Red Cell Dist. Width 13.2 % (11.5-14.5); White Blood Cell Count 10.8 10^3/uL (4.8-10.8)
[2023-07-19 04:15] LABS: Lactic Acid 1.3 mmol/L (0.7-2.0)
[2023-07-19 04:16] LABS: ALT (SGPT) 46 U/L (0-50); AST (SGOT) 65 U/L (17-59); Albumin 3.5 g/dl (3.5-5.0); Alkaline Phosphatase 65 U/L (38-126); Blood Urea Nitrogen 19 mg/dl (9-20); Calcium 9.1 mg/dl (8.4-10.2); Carbon Dioxide 19 mmol/L (22-30); Chloride 110 mmol/L (98-107); Estimated Creatinine Clearance 62 ml/min; Glucose 116 mg/dl (70-99); Magnesium 2.1 mg/dl (1.6-2.3); Phosphorus 4.3 mg/dl (2.5-4.5); Sodium 140 mmol/L (135-145); Total Bilirubin 1.2 mg/dl (0.2-1.3); Total Protein 6.5 g/dl (6.3-8.2); eGFR > 60.00
--- NOTE | 2023-07-19 05:01 | PTCARENOTE ---
MONROE called and updated on patients condition.
[2023-07-19] MEDS: TYLENOL ORAL SOLUTION 650 MG TUBE ×4 (05:36→23:20)
[2023-07-19 05:50] LABS: Glucose - Point of Care 88 mg/dl (70-99)
[2023-07-19] MEDS: SUBLIMAZE 50 MCG IV ×3 (07:47→18:30)
--- NOTE | 2023-07-19 08:18 | W.PN.CD ---
Today's Communication / Plan
-
I added rectal ASA
If makes good recovery will anticipate cath and ICD predischarge
For his Atrial Flutter Will need to add anticoagulation as we see neurologic status
As recovers will add GDMT for his ischemic cardiomyopathy
Impression / Plan
-
78M with established CAD (CABG '93 with subsequent PCIs) with resuscitated sudden cardiac arrest (AED shock). Collapsed while golfing. An AED was found and, by report, delivered a shock. When EMS arrived, they found PEA. He had ROSC with EMS ACLS.
Then VF/VT with ROSC after ACLS again. EKG shows AF with ST depressions and peak troponin is 19.
Out of hospital sudden cardiac arrest treated with AED shock
Troponin elevation
- Likely elevated from primary arrhythmia, cannot rule out NSTEMI
- Will treat as non-RI myocardial injury from cardiac arrest/down time/shocks
Neuro status
- Cannot fully be evaluated until off sedation
- If makes good recovery will anticipate cath and ICD predischarge
Atrial flutter
- Slow ventricular response
- [id number] at least 4 (HF/low EF, age2, vascular disease)
- Will need to add anticoagulation as we see neurologic status
CAD s/p CABG
Ischemic cardiomyopathy
Mixed hyperlipidemia
Daughter/medical POA
Subjective:Sedated and intubated
Echo 07/17/2023: LVEF 31%. Regional wall motion abnormalities, mild to mod MR
Physical Exam
Vital Signs/Labs
Vital Signs
Temp Pulse Resp BP Pulse Ox
97.5 F 63 23 100/65 100
07/19/23 07:09 07/19/23 06:39 07/19/23 06:39 07/19/23 06:39 07/19/23 06:39
07/18/23 07/19/23 07/20/23
06:59 06:59 06:59
Actual Weight 90.3 kg 90.4 kg
PT 16.6 Sec (11.4-14.6) H 07/19/23 00:09
INR 1.36 07/19/23 00:09
APTT 35.7 Sec (23.4-35.0) H 07/19/23 00:09
Magnesium 2.1 mg/dl (1.6-2.3) 07/19/23 03:39
Magnesium Cancelled 07/19/23 03:39
Triglycerides 160 mg/dl (10-149) H 07/17/23 16:45
07/17/23 07/17/23
09:46 10:40
Ame-W-Abvfunhhhsj Pept 1210 Cancelled
LAB Results
07/17/23 07/17/23 07/17/23
09:46 10:40 16:45
Troponin I 0.109 H* Cancelled 19.800 H* D
07/17/23 07/18/23 07/18/23
22:42 04:00 10:01
Troponin I 18.500 H* Cancelled 8.210 H*
07/18/23 07/18/23
16:06 22:00
Troponin I 4.780 H* D Cancelled
Physical Exam
Constitutional: No acute distress
EENT: Anicteric
Cardiovascular: Rhythm/rate is irregular, Pedal edema present and S1S2 is normal
Respiratory: Lungs clear to auscul. (vented)
GI: Soft
Neuro/Psych: Other (eyes open, follows no verbal commands, still on sedation)
Data Reviewed
-
Date of Service: July 19, 2023
Total Time Spent with Patient (in minutes): 58 min spent caring for pt today
[2023-07-19 08:30] LABS: B.E. -3.3 mmol/L; HCO3 21.3 mmol/L (21-28); PCO2 36 mmHg (35-48); PO2 110 mmHg (83-108); pH 7.38 (7.35-7.45)
[2023-07-19 08:36] LABS: Hematocrit 38.2 % (39.0-52.0); Hemoglobin 13.4 g/dL (13.0-18.0); Mean Corp Hgb Conc. 35.1 g/dL (33.0-37.0); Mean Corpuscular Hgb 32.4 pg (27.0-31.0); Mean Corpuscular Volume 92.5 fL (80.0-94.0); Mean Platelet Volume 10.6 fL (7.4-10.4); Platelet Count 105 10^3/uL (130-400); Red Blood Cell Count 4.13 10^6/uL (4.70-6.10); Red Cell Dist. Width 13.2 % (11.5-14.5); White Blood Cell Count 10.7 10^3/uL (4.8-10.8)
[2023-07-19] MEDS: NSS (PRESERVATIVE FREE) 10 ML IV (08:37)
[2023-07-19] MEDS: HEPARIN 5000 UNITS SC ×2 (08:37→19:33)
[2023-07-19] MEDS: REFRESH CELLUVISC GEL 1 DROPS OPHTH ×2 (08:37→19:34)
[2023-07-19] MEDS: BUSPAR 30 MG TUBE ×3 (08:37→23:20)
[2023-07-19] MEDS: PROTONIX IV 40 MG IV (08:37)
[2023-07-19 08:49] LABS: Lactic Acid 1.1 mmol/L (0.7-2.0)
--- NOTE | 2023-07-19 08:50 | W.PN.HOSP.TC ---
Today's Communication/Plan
-
see bold
Assessment / Plan
Assessment / Plan
78-year-old male with a past medical history of coronary artery disease status post CABG 1992, status post PCI with stent placement x 2, and hyperlipidemia presents after having outside hospital V-fib arrest. Apparently patient was golfing, and had
a witnessed syncopal episode. Police found him to be in V-fib arrest, he was shocked. When EMS arrived, he was in PEA rhythm. He received CPR, epinephrine, with ROSC. Temporary subglottic airway was placed. En route to the hospital, he had
another episode of V-fib, and was defibrillated again. He received 2 more doses of epinephrine, ROSC was obtained. Patient was intubated in the ER, and currently on a fentanyl drip. TTM was began in the ER.
#V-fib arrest
Appreciate general practitioner, cardiology input
Echo w/ EF 31%, no active indication for catheterization
Records from [facility] received
Continue vent management as per general practitioner, S/p TTM
EEG reviewed
Continue dopamine drip, Levophed drip for MAP greater than 65, wean as tolerated
Will need left heart cath and ICD prior to DC
Will need neuro consult after off of sedation for neurologic recovery assessment
#Cardiogenic shock
Continue dopamine drip, Levophed drip for MAP greater than 65
#CAD status post CABG 1992, PTCA 2011
Echo: 'No results recorded'
Stress test: 'Refuses stress test.'
Cardiology added rectal aspirin daily
# Atrial flutter
He will need anticoagulation once neurologic recovery is determined
#Hyperlipidemia
Intolerant of statins
#Leukocytosis
Chest x-ray shows possible aspiration, continue empiric Zosyn
Cultures pending, trend fever and white count
#Metabolic acidosis
Lactic acid normalized
#Hyperglycemia
Hemoglobin A1c 5.5, Accu-Cheks every 6 hours, sliding scale insulin every 6 hours
#Hypokalemia
Repleted and resolved
#Mildly elevated LFTs
Trend
DVT prophylaxis�subcu heparin
GGI prophylaxis- IV protonix
Okay for cardioversion and defibrillation, but no CPR
Total time spent to see the patient on the floor, examine the patient, review data and lab results, discuss treatment plan with patient, nursing staff around 50 minutes.
Physical Exam
General: Intubated and sedated no acute distress
HEENT: Normocephalic, Atraumatic, EOMI, MMM
Respiratory: Coarse breath sounds
Cardiac: Normal S1/S2, Regular Rate and Rhythm
GI: Soft, Nontender, Nondistended, Normal Bowel Sounds
Extremities: No Clubbing, Cyanosis, or Edema
Neuro: Sedated
Anticipated Discharge: > 48 hours
Subjective/Interval History
-
Date of Service: July 19, 2023
Intubated and sedated. More responsive per daughter.
Objective Data
-
Labs:
Laboratory Results
07/19/23 07/19/23 07/19/23
00:09 03:39 03:39
WBC Cancelled 10.8
Hgb Cancelled
Hct
Plt Count
PT 16.6 H
INR 1.36
APTT 35.7 H
HCO3
Sodium
Potassium
Chloride
Carbon Dioxide
BUN
Creatinine
Glucose
Calcium
Total Bilirubin
AST
ALT
Alkaline Phosphatase
07/19/23 07/19/23 07/19/23
03:39 03:39 03:39
WBC
Hgb 13.8
Hct Cancelled 39.2
Plt Count Cancelled 106 L
PT
INR
APTT
HCO3
Sodium Cancelled
Potassium
Chloride
Carbon Dioxide
BUN
Creatinine
Glucose
Calcium
Total Bilirubin
AST
ALT
Alkaline Phosphatase
07/19/23 07/19/23 07/19/23
03:39 03:39 03:39
WBC
Hgb
Hct
Plt Count
PT
INR
APTT
HCO3
Sodium 140
Potassium Cancelled 4.0
Chloride Cancelled 110 H
Carbon Dioxide Cancelled
BUN
Creatinine
Glucose
Calcium
Total Bilirubin
AST
ALT
Alkaline Phosphatase
07/19/23 07/19/23 07/19/23
03:39 03:39 03:39
WBC
Hgb
Hct
Plt Count
PT
INR
APTT
HCO3
Sodium
Potassium
Chloride
Carbon Dioxide 19 L
BUN Cancelled 19
Creatinine Cancelled 1.0
Glucose Cancelled
Calcium
Total Bilirubin
AST
ALT
Alkaline Phosphatase
07/19/23 07/19/23 07/19/23
03:39 03:39 03:39
WBC
Hgb
Hct
Plt Count
PT
INR
APTT
HCO3
Sodium
Potassium
Chloride
Carbon Dioxide
BUN
Creatinine
Glucose 116 H
Calcium Cancelled 9.1
Total Bilirubin Cancelled 1.2
AST Cancelled
ALT
Alkaline Phosphatase
07/19/23 07/19/23 07/19/23
03:39 03:39 03:39
WBC
Hgb
Hct
Plt Count
PT
INR
APTT
HCO3
Sodium
Potassium
Chloride
Carbon Dioxide
BUN
Creatinine
Glucose
Calcium
Total Bilirubin
AST 65 H
ALT Cancelled 46
Alkaline Phosphatase Cancelled 65
07/19/23 07/19/23 07/19/23
08:11 12:00 20:00
WBC 10.7 Pending
Hgb 13.4 Pending
Hct 38.2 L Pending
Plt Count 105 L Pending
PT
INR
APTT
HCO3 21.3 Pending
Sodium Pending Pending
Potassium Pending Pending
Chloride Pending Pending
Carbon Dioxide Pending Pending
BUN Pending Pending
Creatinine Pending Pending
Glucose Pending Pending
Calcium Pending Pending
Total Bilirubin Pending Pending
AST Pending Pending
ALT Pending Pending
Alkaline Phosphatase Pending Pending
Vital Signs:
Vital Signs
Temp Pulse Resp BP Pulse Ox
97.5 F 63 23 100/65 100
07/19/23 07:09 07/19/23 06:39 07/19/23 06:39 07/19/23 06:39 07/19/23 06:39
I&O
07/18/23 07/19/23 07/20/23
06:59 06:59 06:59
Intake Total 1177.1 / 1250.9 1576.7 / 1597.7 21.0 / 21.0
Output Total 3205 / 3315 1400 / 1400 40 / 40
Balance -2027.9 / -2064.1 176.7 / 197.7 -19.0 / -19.0
[2023-07-19 09:03] LABS: ALT (SGPT) 43 U/L (0-50); AST (SGOT) 57 U/L (17-59); Albumin 3.4 g/dl (3.5-5.0); Alkaline Phosphatase 60 U/L (38-126); Blood Urea Nitrogen 19 mg/dl (9-20); Calcium 8.8 mg/dl (8.4-10.2); Carbon Dioxide 20 mmol/L (22-30); Chloride 111 mmol/L (98-107); Estimated Creatinine Clearance 62 ml/min; Glucose 120 mg/dl (70-99); Magnesium 2.1 mg/dl (1.6-2.3); Phosphorus 4.6 mg/dl (2.5-4.5); Potassium 4.4 mmol/L (3.5-5.1); Sodium 139 mmol/L (135-145); Total Bilirubin 0.9 mg/dl (0.2-1.3); Total Protein 6.4 g/dl (6.3-8.2); eGFR > 60.00
[2023-07-19] MEDS: LEVOPHED 250 IV (09:22)
--- NOTE | 2023-07-19 09:44 | W.PN.INTV ---
Today's Communication / Plan
Recommendations
Rewarmed starting 07/17 at 3 PM --> now normothermic
Limit sedation as much as possible
Brain MRI tomorrow
Neuro consulted - recs appreciated
Keep core temperature probe attached at least another 24-48 hours s/p rewarming to monitor for fever
Check sputum Cx, blood Cx
Replete K>4, Mg>2
MAP>65
Ischemic eval if he does improve per cardiology
Guarded prognosis
Assessment
-
Patient is a 78-year-old male with previous history of CAD, presenting to ER after witnessed syncopal episode while playing golf this morning. 911 called, police arrived and patient was reportedly in V-fib arrest, AED used which defibrillated.
EMS arrived shortly after and patient was found to be in PEA rhythm. CPR was initiated and patient was given 2 doses of epinephrine with return of spontaneous circulation. He was attempted to be intubated prehospital but airway could not be
established. Temporary subglottic airway was placed and patient was bagged on the way to the hospital. He unfortunately suffered another cardiac arrest en route. V-fib was noted and patient was defibrillated again with 2 more doses of epinephrine.
ROSC was obtained at ER evaluation. Intubated in ER and admitted to ICU following initiation of TTM.
Impression:
Acute cardiac arrest/VF s/p shock x 2 and CPR, PEA after 07/17/23 s/p therapeutic hypothermia (reached normothermic temperature on 07/19/2023)
Shock on vasopressors - likely due to sedation - shock state now resolved
Bradycardia - now resolved - was due to therapeutic hypothermia, he required dopamine, but now he is off dopamine and off levophed
Aspiration PNA
Mild leukocytosis
Metabolic acidosis
Hyperglycemia
Elevated LFTs
Elevated troponin - likely due to ACS in setting of CPR (EKG with yessenia-inferolateral ST-depressions with frequent PVCs) and TTE with apex + apical segment hypokinesis
Acute HFrEF with stage III diastolic dysfunction
Mild-moderate MR with mild pHTN (PASP: 36mmHg)
Atrial fibrillation - new onset
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
CAD status post CABG
Hyperlipidemia
Plan
Now that he has been re-warmed, he is starting to awaken. Still not following commands.
Limit sedation and keep off as much as possible, using prn fentanyl.
Keep on pressure support all day as long as he is tolerating, and place back to AC/CMV tonight with light sedation, and then we can resume SAT/SBT again tomorrow AM
Neurology consulted - recs appreciated
MRI brain tomorrow
Iniital CT Head neg
RASS goals: 0 to -1
Hemodynamically stable, not requiring pressors.
Cardiac history reviewed--CAD s/p CAB history, follows outpatient cards
Trops elevated -peaked at 19.8 on 07/17/2023 � no longer need to check given it's been trending downwards
VF history
ECHO reviewed
Maintain HR<110 and >50
Cards following
He will need an ischemic eval with [facility] depending on his recovery course - I consulted neurology today to help prognosticate, as he is not following commands despite him awakening
Intubated for cardiac arrest
Vent settings reviewed, adjust as needed
ABGs reviewed, adequate for now
Acidosis is metabolic
Prior history of lung disease: none, lifelong nonmoker
Titrate FiO2 and PEEP to maintain sats > 94%
CXR/CT reviewed indicating edema vs aspiration, Zosyn added
Check sputum Cx and blood Cx
NPO
OGT placed with red output, traumatic intubation --> trend Hb and continue PPI
Grey Goods Tester recommendations reviewed --> start TF
Aspiration precautions, HOB > 30 degrees
GI prophylaxis is indicated
Creat at baseline, no history of renal disease
Void trials
Follow urine output, critical I/Os
Replete electrolytes as needed
Met acidosis likely post cardiac arrest
Possible aspiration PNA
Started on empiric antibiotics with Zosyn (started 07/16) - complete a 7 day course
Cx being checked as stated above
Follow fever trend, WBC count
CBC stable, no signs of bleeding or coagulopathy.
Possible GIB, on SQ heparin
DVT prophylaxis as assessed based on risk, including mechanical SCDs- continue HSQ
Can transfuse if indicated for Hb <7, plt < 10
INR WNL
No prior h/o diabetes or thyroid disease
Goal BG 140-180mg/dL
Dr. Andujar had spoken with family at bedside regarding TTM, they are aware of what to expect. They confirm he should be DNR. They do not want to cause further brain injury. Would accept cardioversion or defibrillation if needed but no CPR. Updated
in chart.
I updated the daughter today at bedside and I answered all her questions. Emotional support was also provided.
Critical care statement: A total of 52 minutes of critical care time was provided for this patient today. This includes management of unstable vital signs, evaluation of the patient at bedside, reviewing the patient's pertinent medical records
including radiographs, microbiology, laboratory evaluations, and discussion with primary team, consultants, pharmacy, nutrition, physical therapy, case management, charge nurse, critical care nursing, and respiratory therapy.
Diagnostic Data
CXR 07-19-2023: No acute cardiopulmonary process.
Chest X-Ray: 07/17/23- 1. Endotracheal tube with tip approximately 5.5 cm above the thuy.
2. Low lung volumes. Bilateral interstitial and airspace opacities as above. Aspiration is a differential consideration. Interstitial and mild alveolar edema is also a consideration.
CT Scan: Neck- 1. No acute fracture or malalignment.
2. Multilevel mild to moderate degenerative changes thoracic spine.
3. Post endotracheal tube placement. Abnormal increased interstitial and airspace opacity in the upper lungs. Aspiration is a consideration. Interstitial and alveolar edema is possible.
HEAD - No acute intracranial abnormality identified.
Echo: 07-17-2023
Technically difficult study.
Severely reduced left ventricular systolic function. Left ventricular ejection
fraction is 31%.
Regional wall motion abnormalities (below) consistent with CAD.
Mild to moderate mitral regurgitation.
Mild tricuspid regurgitation. Estimated pulmonary artery pressure of 36 mmHg.
No prior study available for comparison.
Reports and relevant images were personally reviewed.
Subjective Dataa
Subjective Data
Date of Service:
Date of Service: July 19, 2023
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
Subjective:
Patient seen today at bedside. Sedation is low with fentanyl at 25mcg/hr and propofol at 5mcg/kg/min, and he is awakening with eyes open. Daughters at bedside. He is not following commands, but the daughters say that he is for them. He clearly
opens his eyes to commands. He is in NAD. He is on AC/VC 40%, PEEP of 5. Starting to double trigger. Small amount of hogan secretions. I answered all the questions that the family had.
Review of Systems
General: Other (Unable to obtain given patient's acute clinical status/intubation)
Objective Data
Data Reviewed
Vital Signs / I&O / Oxygen:
Vital Signs
Temp Pulse Resp BP Pulse Ox
97.6 F 48 20 79/52 100
07/19/23 09:00 07/19/23 09:30 07/19/23 09:30 07/19/23 09:00 07/19/23 09:30
Intake and Output
07/18/23 07/19/23 07/20/23
06:59 06:59 06:59
Intake Total 1177.1 / 1250.9 1576.7 / 1597.7 151.5 / 151.5
Output Total 3205 / 3315 1400 / 1400 85 / 85
Balance -2026.9 / -4.1 176.7 / 197.7 66.5 / 66.5
SaO2 [A/C] 100
SaO2 100
Physical Exam
General: Comfortable, Sweats (negative) and Other (Intubated)
HEENT: Normocephalic and Anicteric
Cardiovascular: S1-S2, Peripheral Edema (negative) and Other (normal rate)
Respiratory: Wheeze (negative), Crackles (negative), Rhonchi (negative), Non-Labored Respirations, ET Tube and Other (Mechanical/coarse breath sounds heard bilaterally)
GI: Soft and Non Distended
Neurology: Awake, Other (Pupils are +2 bilaterally and sluggish; (+) gag and cough reflex; (+) spontaneous movement seen in all 4 extremities (withdraws to pain)) and Other (Stiff extremities with resistance to flexion and extension of both arms and
legs)
Skin: Warm and Dry
Labs/Micro/Reports
Laboratory Results
07/18/23 07/19/23 07/19/23
19:54 00:09 08:11
PT 16.6 H
INR 1.36
APTT 35.7 H
pH 7.40 7.38
pCO2 33 L 36
pO2 159 H 110 H
HCO3 20.4 L 21.3
O2 Delivery Level
[2023-07-19] MEDS: ASPIRIN 300 MG RECTAL (10:06)
--- NOTE | 2023-07-19 11:02 | PTCARENOTE ---
Pt opens eyes to voice. Tracks. Not following commands. Weaning sedation. Dopamine weaned off. Levophed started this am for BP 90s/40s.
Normothermic on acrtic sun. Aflutter HR 45-60s. Tolerating vent. NGT to LIS with small amount green drainage. Kaur draining dark yellow. All other assessments unchanged.
[2023-07-19 12:54] LABS: Hematocrit 37.2 % (39.0-52.0); Mean Corp Hgb Conc. 34.9 g/dL (33.0-37.0); Mean Corpuscular Hgb 32.3 pg (27.0-31.0); Mean Corpuscular Volume 92.3 fL (80.0-94.0); Platelet Count 104 10^3/uL (130-400); Red Blood Cell Count 4.03 10^6/uL (4.70-6.10); Red Cell Dist. Width 13.2 % (11.5-14.5); White Blood Cell Count 10.2 10^3/uL (4.8-10.8)
--- NOTE | 2023-07-19 12:54 | CON.NEURO4 ---
Consultation - Neurology 4
-
CONSULTING PHYSICIAN: Watson Almendarez
REFERRING PHYSICIAN: ICU
DICTATED BY: Watson Almendarez
DATE/TIME OF REQUEST: 07/19/23
DATE/TIME OF CONSULTATION: 07/19/23
Reason for Consultation: Cardiac arrest prognostication
History of Present Illness:
The patient is a 78-year-old male with a past medical history of coronary artery disease and hyperlipidemia who presented to hospital after V-fib arrest after golfing, he was admitted on 07/16. After collapsing [place] the [place] 911 and police
arrived and patient was found to be in V-fib arrest for which she had defibrillation, EMS arrived started CPR and was given epinephrine and did achieve ROSC, had another cardiac arrest with V-fib and route to the hospital and was defibrillated with
ROSC and then was intubated in the ER admitted to the ICU. Patient started on targeted temperature monitoring on admit to the ICU on 07/16. He is currently being rewarmed from mild hypothermia. He had EEG done which showed diffuse slowing and no
seizure activity, no overt seizure activity or myoclonus has been seen.
His family is at bedside and relates that has been doing well in his health recently doing a good amount of physical activity walking sometimes 3 to 4 miles a day and is physically active. There had been no recent significant medical illnesses no
chest pain or breathing difficulty or fevers or obvious infections. No recent problems with the heart. He has no history of stroke TIA or neurologic problems. Family has seen him today tracking family members and squeezing hands, has not obeyed
complex commands yet.
Past Medical History: Coronary artery disease, hyperlipidemia
Surgical History: CABG, PCI with cardiac stent
Family History: No family history seizure or neurologic disorders, no sudden cardiac
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
Allergies: Shellfish
Review of Symptoms:
Unable to obtain with mental status
Physical Exam:
Middle aged man, intubated, no head trauma, ET tube in place, eyes clear, neck no masses, heart rate regular, breath sounds present bilaterally, abdomen soft non tender, no lower extremity edema, no rashes
Neurologic Examination:
Mental status: Lethargic, eyes do open spontaneously and to voice, no tracking of examiner or bright objects on this exam, will withdraw to noxious stimulation of the feet, not obeying commands to show thumbs up, wiggle toes, or close eyes
Cranial nerves: resting gaze is midline, no gaze deviation seen, pupils 3-4 mm equal round and reactive to light bilaterally, face grossly symmetric, cough and gag not tested on this exam
Motor: Mildly reduced muscle tone throughout, bulk is normal no abnormal movements myoclonus or tremor or parkinsonism or rigidity, arms with withdrawal 2/5 symmetric manner, withdrawal to noxious stimulation in the feet bilaterally with 2/5
movement at knees and ankles in symmetric manner.
Reflexes: Babinski negative, no clonus
Coordination: Unable to assess
Gait: Unable to assess
Neuro Imaging: CT head no infarcts or hemorrhage or masses seen, normal dale white matter differentiation, no edema
Impressions
1. 2 episodes of V-fib cardiac arrest with subsequent defibrillation and ROSC, underwent targeted temperature management and is now being rewarmed. Neurologic examination does show some eye opening, not obeying complex commands for me yet on my
exam. EEG was not malignant, showed slowing, no seizures. Effects of sedative infusions on the brain probably still present. Encouraging that he is opening his eyes but still has the potential for an anoxic brain injury.
2. History coronary artery disease with CABG and previous cardiac stent
3. Hyperlipidemia
Recommendations:
1. Check MRI brain without contrast tomorrow 07/19
2. Minimize sedation and would avoid sedative infusions
3. Neurologic checks
4. Avoid fever
5. Continue aspirin
6. Cardiac telemetry
Discussed with family at bedside, ICU physician
Will follow
ICU time = 45 minutes
[2023-07-19 13:14] LABS: Lactic Acid 1.2 mmol/L (0.7-2.0)
[2023-07-19 13:16] LABS: ALT (SGPT) 45 U/L (0-50); AST (SGOT) 49 U/L (17-59); Albumin 3.2 g/dl (3.5-5.0); Alkaline Phosphatase 56 U/L (38-126); Blood Urea Nitrogen 20 mg/dl (9-20); Calcium 8.5 mg/dl (8.4-10.2); Carbon Dioxide 20 mmol/L (22-30); Chloride 111 mmol/L (98-107); Estimated Creatinine Clearance 62 ml/min; Glucose 110 mg/dl (70-99); Phosphorus 5.6 mg/dl (2.5-4.5); Potassium 4.2 mmol/L (3.5-5.1); Sodium 138 mmol/L (135-145); Total Bilirubin 0.8 mg/dl (0.2-1.3); Total Protein 6.2 g/dl (6.3-8.2); eGFR > 60.00
[2023-07-19] MEDS: TYLENOL ORAL SOLUTION TUBE (13:34)
[2023-07-19] MEDS: LIDOCAINE 4% PATCH 1 PATCH TOPICAL (13:49)
--- NOTE | 2023-07-19 18:48 | PTCARENOTE ---
SBT x 6hrs today. Pt became agitated and hypertensive when placed back on A/C. Frequent vent alarms, stacking breaths, biting tube. Pt also grimacing and very rigid to passive movement. Fentanyl gtt and Propofol gtt restarted.
Tube feeds started at 1345. Osmolite 20ml/hr with /25 FWF. Residual 80 mls at this time.
All other assessments unchanged.
--- NOTE | 2023-07-19 23:58 | PTCARENOTE ---
pt opens eyes, does not track or follow commands. bitting on the ETT, vent alarming increased sedation.
[2023-07-20] VITALS (24 sets, daily range): BP systolic 79–180; BP diastolic 51–106; BMI 29.3
[2023-07-20 00:09] LABS: Glucose - Point of Care 93 mg/dl (70-99)
[2023-07-20] MEDS: ZOSYN 50 IV ×4 (02:47→19:19)
[2023-07-20] MEDS: DIPRIVAN 100 IV ×2 (03:11→18:17)
--- NOTE | 2023-07-20 04:48 | PTCARENOTE ---
a-line flat, attempted to redress and flush. no blood return. a-line removed.
[2023-07-20 04:56] LABS: Hematocrit 39.5 % (39.0-52.0); Hemoglobin 13.2 g/dL (13.0-18.0); Mean Corp Hgb Conc. 33.4 g/dL (33.0-37.0); Mean Corpuscular Hgb 31.9 pg (27.0-31.0); Mean Corpuscular Volume 95.4 fL (80.0-94.0); Mean Platelet Volume 11.6 fL (7.4-10.4); Platelet Count 93 10^3/uL (130-400); Red Blood Cell Count 4.14 10^6/uL (4.70-6.10); Red Cell Dist. Width 13.4 % (11.5-14.5); White Blood Cell Count 6.8 10^3/uL (4.8-10.8)
[2023-07-20 04:59] LABS: B.E. -1.2 mmol/L; HCO3 22.6 mmol/L (21-28); O2 Saturation % 99.9 % (94-98); PCO2 34 mmHg (35-48); PO2 152 mmHg (83-108); pH 7.43 (7.35-7.45)
[2023-07-20 05:01] LABS: O2 Therapy 40%
[2023-07-20 05:08] LABS: APTT 38.3 Sec (23.4-35.0)
[2023-07-20 05:18] LABS: Blood Urea Nitrogen 24 mg/dl (9-20); Calcium 8.4 mg/dl (8.4-10.2); Carbon Dioxide 22 mmol/L (22-30); Chloride 108 mmol/L (98-107); Estimated Creatinine Clearance 62 ml/min; Glucose 96 mg/dl (70-99); Magnesium 2.2 mg/dl (1.6-2.3); Potassium 4.2 mmol/L (3.5-5.1); Sodium 139 mmol/L (135-145); Triglycerides 96 mg/dl (10-149); eGFR > 60.00
[2023-07-20 05:36] LABS: Prealbumin (Transthyretin) 12.4 mg/dl (17.6-36.0)
[2023-07-20] MEDS: TYLENOL ORAL SOLUTION 650 MG TUBE ×4 (05:48→23:06)
--- NOTE | 2023-07-20 08:06 | W.PN.HOSP.TC ---
Addendum entered and electronically signed by Prosper Figueroa MD 07/20/23 12:39:
#Hyperphosphatemia
Start sevelamer, recheck a.m. phosphorus
Original Note:
Today's Communication/Plan
-
see bold
Assessment / Plan
Assessment / Plan
78-year-old male with a past medical history of coronary artery disease status post CABG 1992, status post PCI with stent placement x 2, and hyperlipidemia presents after having outside hospital V-fib arrest. Apparently patient was golfing, and had
a witnessed syncopal episode. Police found him to be in V-fib arrest, he was shocked. When EMS arrived, he was in PEA rhythm. He received CPR, epinephrine, with ROSC. Temporary subglottic airway was placed. En route to the hospital, he had
another episode of V-fib, and was defibrillated again. He received 2 more doses of epinephrine, ROSC was obtained. Patient was intubated in the ER, and currently on a fentanyl drip. TTM was began in the ER.
#V-fib arrest
Appreciate r d intern, cardiology input
Echo w/ EF 31%, no urgent indication for catheterization
Records from [facility] received
Continue vent management as per r d intern, S/p TTM
EEG showed diffuse slowing no seizure activity was not a malignant EEG pattern
S/p dopamine drip, Levophed drip
Will need left heart cath and ICD prior to DC if there is neurologic recovery
Neurology following for neurologic recovery
Hold sedation, check brain MRI without contrast to evaluate for presence of anoxic brain injury
#Cardiogenic shock
S/p dopamine drip, s/p Levophed drip
#CAD status post CABG 1992, PTCA 2011
Records from [facility] reviewed, Echo: 'No results recorded'
Stress test: 'Refuses stress test.'
Cardiology added rectal aspirin daily 07/18
Will need ischemic workup if there is neurologic recovery
# Atrial flutter
He will need anticoagulation once neurologic recovery is determined
#Hyperlipidemia
Intolerant of statins
#Leukocytosis
Chest x-ray shows possible aspiration, continue empiric Zosyn
Respiratory Gram stain negative for organisms, shows white blood cells and epithelial cells, blood cultures negative to date, trend fever and white count
#Metabolic acidosis
Lactic acid normalized
#Hyperglycemia
Hemoglobin A1c 5.5, Accu-Cheks every 6 hours, sliding scale insulin every 6 hours
#Hypokalemia
Repleted and resolved
#Mildly elevated LFTs
Trend
DVT prophylaxis�subcu heparin
GGI prophylaxis- IV protonix
Okay for cardioversion and defibrillation, but no CPR
Total time spent to see the patient on the floor, examine the patient, review data and lab results, discuss treatment plan with patient, nursing staff around 35 minutes.
Physical Exam
General: Intubated and sedated no acute distress
HEENT: Normocephalic, Atraumatic, EOMI, MMM
Respiratory: Coarse breath sounds
Cardiac: Normal S1/S2, Regular Rate and Rhythm
GI: Soft, Nontender, Nondistended, Normal Bowel Sounds
Extremities: No Clubbing, Cyanosis, or Edema
Neuro: Sedated
Anticipated Discharge: > 48 hours
Subjective/Interval History
-
Date of Service: July 20, 2023
Patient intubated and sedated.
Objective Data
-
Labs:
Laboratory Results
07/20/23 07/20/23 07/20/23
04:36 04:58 08:00
WBC 6.8
Hgb 13.2
Hct 39.5
Plt Count 93 L
PT 16.0 H
INR 1.30
APTT 38.3 H
HCO3 22.6 Pending
Sodium 139
Potassium 4.2
Chloride 108 H
Carbon Dioxide 22
BUN 24 H
Creatinine 1.0
Glucose 96
Calcium 8.4
Vital Signs:
Vital Signs
Temp Pulse Resp BP Pulse Ox
98.5 F 77 8 143/82 100
07/20/23 07:57 07/20/23 07:45 07/20/23 07:45 07/20/23 07:00 07/20/23 07:46
I&O
07/19/23 07/20/23 07/21/23
06:59 06:59 06:59
Intake Total 1576.7 / 1597.7 1171.1 / 1216.1 90 / 90
Output Total 1400 / 1400 585 / 610 55 / 55
Balance 176.7 / 197.7 586.1 / 606.1 35 /
--- NOTE | 2023-07-20 08:18 | W.PN.NEURO.1 ---
Today's Communication / Plan
-
-Attempt to hold all sedation
-Check brain MRI without contrast to evaluate for presence of anoxic brain injury
-Wean ventilator as able
-Cardiac telemetry and continue aspirin
Will follow
Neuro Assessment/Plan
Assessment
78-year-old male with a past med history of coronary artery disease CABG and coronary stent presented hospital after 2 V-fib cardiac arrest with shocks and ROSC obtained outside the hospital. He underwent targeted temperature monitoring.
EEG showed diffuse slowing no seizure activity was not a malignant EEG pattern
CT head noncontrast on admission did not not show early changes of anoxic brain injury or edema, no chronic infarcts or acute findings
Neurologic examination 3 days after cardiac arrest shows eye opening, not obeying complex commands at this time 07/19
Awaiting brain MRI for further prognostication of neurologic function
Subjective/Objective
Subjective Data
Date of Service: July 20, 2023
No acute events, opening eyes not obeying complex commands, remains intubated
Objective Data
Vital Signs
Temp Pulse Resp BP Pulse Ox
98.5 F 77 8 143/82 100
07/20/23 07:57 07/20/23 07:45 07/20/23 07:45 07/20/23 07:00 07/20/23 07:46
Lab Results
07/20/23 04:36
07/20/23 04:36
PT 16.0 Sec (11.4-14.6) H 07/20/23 04:36
INR 1.30 07/20/23 04:36
APTT 38.3 Sec (23.4-35.0) H 07/20/23 04:36
Sodium 139 mmol/L (135-145) 07/20/23 04:36
Potassium 4.2 mmol/L (3.5-5.1) 07/20/23 04:36
BUN 24 mg/dl (9-20) H 07/20/23 04:36
Glucose 96 mg/dl (70-99) 07/20/23 04:36
Calcium 8.4 mg/dl (8.4-10.2) 07/20/23 04:36
Phosphorus 5.6 mg/dl (2.5-4.5) H 07/19/23 12:40
Wgw-U-Sztwqzmcbia Pept Cancelled 07/17/23 10:40
Patient Allergies
shellfish derived Allergy (Verified 07/17/23 11:10)
Unknown
Review of Systems
-
Unable to obtain full review of systems at this time due to: Patient Intubation
Physical Exam
-
General: Comfortable and Intubated
Eyes: No Ptosis
HEENT: Normocephalic
Neck: No Bruits Bilaterally
Extended Neurological Exam
Mood & Affect: Mood Unremarkable and Affect Unremarkable
Attention Span & Concentration: Other (Eyes open to voice, not obeying commands to close eyes or stick out tongue or show thumbs up or move toes)
Memory: Unable to Assess
Speech: Mute
Cranial Nerve II: Left Eye: Pupillary Reactivity Unremarkable, Pupillary Size Unremarkable and Visual Keating Grossly Intact (Blinks to threat)
Cranial Nerve II: Right Eye: Pupillary Reactivity Unremarkable, Pupillary Size Unremarkable and Visual Ke[place] Grossly Intact (Blinks to threat)
Cranial Nerves III, IV, : Extraocular Movement: Other (Resting gaze midline, VOR intact)
Cranial Nerve VII: Facial Symmetry: Other (Symmetric face)
Muscle Strength, Overall: Other (Withdraws legs 3/5 hip flexion bilaterally, arm flexion movements 2/5 bilaterally)
Muscle Bulk & Tone: Reduced Tone
Deep Tendon Reflexes: Absent Throughout
Babinski Sign: Absent Bilaterally
[2023-07-20] MEDS: HEPARIN 5000 UNITS SC ×2 (08:48→19:21)
[2023-07-20] MEDS: LIDOCAINE 4% PATCH 1 PATCH TOPICAL (08:48)
[2023-07-20] MEDS: NSS (PRESERVATIVE FREE) 10 ML IV (08:48)
[2023-07-20] MEDS: PROTONIX IV 40 MG IV (08:48)
[2023-07-20] MEDS: REFRESH CELLUVISC GEL 1 DROPS OPHTH ×2 (08:49→19:22)
[2023-07-20] MEDS: BUSPAR 30 MG TUBE ×3 (08:49→23:06)
[2023-07-20] MEDS: ASPIRIN 300 MG RECTAL (08:49)
--- NOTE | 2023-07-20 09:10 | W.PN.INTV ---
Today's Communication / Plan
Recommendations
Rewarmed starting 07/17 at 3 PM --> now normothermic
Limit sedation as much as possible
Brain MRI today
Neuro consulted - recs appreciated
Keep core temperature probe attached at least 24-48 hours s/p rewarming to monitor for fever
Check sputum Cx, blood Cx
Replete K>4, Mg>2
MAP>65
Diurese today given voluem overload seen on CXR
Ischemic eval if he does improve per cardiology
Guarded prognosis
Assessment
-
Patient is a 78-year-old male with previous history of CAD, presenting to ER after witnessed syncopal episode while playing golf this morning. 911 called, police arrived and patient was reportedly in V-fib arrest, AED used which defibrillated.
EMS arrived shortly after and patient was found to be in PEA rhythm. CPR was initiated and patient was given 2 doses of epinephrine with return of spontaneous circulation. He was attempted to be intubated prehospital but airway could not be
established. Temporary subglottic airway was placed and patient was bagged on the way to the hospital. He unfortunately suffered another cardiac arrest en route. V-fib was noted and patient was defibrillated again with 2 more doses of epinephrine.
ROSC was obtained at ER evaluation. Intubated in ER and admitted to ICU following initiation of TTM.
Impression:
Acute cardiac arrest/VF s/p shock x 2 and CPR, PEA after 07/17/23 s/p therapeutic hypothermia (reached normothermic temperature on 07/19/2023)
Shock on vasopressors - likely due to sedation - shock state now resolved
Bradycardia - now resolved - was due to therapeutic hypothermia, he required dopamine, but now he is off dopamine and off levophed
Aspiration PNA
Mild leukocytosis
Metabolic acidosis
Hyperglycemia
Elevated LFTs
Elevated troponin - likely due to ACS in setting of CPR (EKG with yessenia-inferolateral ST-depressions with frequent PVCs) and TTE with apex + apical segment hypokinesis
Acute HFrEF with stage III diastolic dysfunction
Mild-moderate MR with mild pHTN (PASP: 36mmHg)
Atrial fibrillation - new onset
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
CAD status post CABG
Hyperlipidemia
Plan
Now that he has been re-warmed, he is starting to awaken. Still not following commands.
Limit sedation and keep off as much as possible, using prn fentanyl.
Keep on pressure support all day as long as he is tolerating, and place back to AC/CMV tonight with light sedation, and then we can resume SAT/SBT again tomorrow AM
Neurology consulted - recs appreciated
MRI brain today
Initial CT Head neg
RASS goals: 0 to +1 and 0 to -1 when on full vent support
Hemodynamically stable, not requiring pressors.
Cardiac history reviewed--CAD s/p CAB history, follows outpatient cards
Trops elevated -peaked at 19.8 on 07/17/2023 � no longer need to check given it's been trending downwards
VF history
ECHO reviewed
Maintain HR<110 and >50
Cards following
He will need an ischemic eval with [facility] depending on his recovery course - I consulted neurology on 07/18 to help prognosticate, as he is minimally following commands despite him awakening
Intubated for cardiac arrest
Vent settings reviewed, adjust as needed --> wean during the day with full AC/CMV at night
ABGs reviewed, adequate for now
Prior history of lung disease: none, lifelong nonmoker
Titrate FiO2 and PEEP to maintain sats > 94%
CXR/CT reviewed indicating edema vs aspiration, Zosyn added
Check sputum Cx; blood Cx shows NGTD (from 07/18/2023)
NPO
OGT placed with red output, traumatic intubation --> trend Hb and continue PPI
Psychiatry Adult Physician recommendations reviewed --> started TF on 07/18
Aspiration precautions, HOB > 30 degrees
GI prophylaxis is indicated
Creat at baseline, no history of renal disease
Void trials
Follow urine output, critical I/Os
Replete electrolytes as needed
Met acidosis likely post cardiac arrest
Possible aspiration PNA
Started on empiric antibiotics with Zosyn (started 07/16) - complete a 7 day course
Cx being checked as stated above
Follow fever trend, WBC count
CBC stable, no signs of bleeding or coagulopathy.
Possible GIB, on SQ heparin
DVT prophylaxis as assessed based on risk, including mechanical SCDs- continue HSQ
Can transfuse if indicated for Hb <7, plt < 10
INR WNL
No prior h/o diabetes or thyroid disease
Goal BG 140-180mg/dL
Dr. Andujar had spoken with family at bedside regarding TTM, they are aware of what to expect. They confirm he should be DNR. They do not want to cause further brain injury. Would accept cardioversion or defibrillation if needed but no CPR. Updated
in chart.
I updated the daughters x2 today at bedside and I answered all her questions. Emotional support was also provided.
Critical care statement: A total of 43 minutes of critical care time was provided for this patient today. This includes management of unstable vital signs, evaluation of the patient at bedside, reviewing the patient's pertinent medical records
including radiographs, microbiology, laboratory evaluations, and discussion with primary team, consultants, pharmacy, nutrition, physical therapy, case management, charge nurse, critical care nursing, and respiratory therapy.
Diagnostic Data
CXR 07-20-2023: Mild CHF and bibasilar atelectasis, progressed.
CXR 07-19-2023: No acute cardiopulmonary process.
Chest X-Ray: 07/17/23- 1. Endotracheal tube with tip approximately 5.5 cm above the thuy.
2. Low lung volumes. Bilateral interstitial and airspace opacities as above. Aspiration is a differential consideration. Interstitial and mild alveolar edema is also a consideration.
CT Scan: Neck- 1. No acute fracture or malalignment.
2. Multilevel mild to moderate degenerative changes thoracic spine.
3. Post endotracheal tube placement. Abnormal increased interstitial and airspace opacity in the upper lungs. Aspiration is a consideration. Interstitial and alveolar edema is possible.
HEAD - No acute intracranial abnormality identified.
Echo: 07-17-2023
Technically difficult study.
Severely reduced left ventricular systolic function. Left ventricular ejection
fraction is 31%.
Regional wall motion abnormalities (below) consistent with CAD.
Mild to moderate mitral regurgitation.
Mild tricuspid regurgitation. Estimated pulmonary artery pressure of 36 mmHg.
No prior study available for comparison.
Reports and relevant images were personally reviewed.
Subjective Dataa
Subjective Data
Date of Service:
Date of Service: July 20, 2023
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
Subjective:
Patient seen and evaluate this morning.: For MRI today. Spoke with daughters asked to and answered all the questions. Heart rate 72, BP 131/77. Patient still minimally responsive although he does intermittently follow commands as per the
daughters, but his responses take long for him to perform. He is on the vent and is tolerating weaning trial on pressure support of 10, PEEP of 5.
Review of Systems
General: Unobtainable - Pat Unresp
Objective Data
Data Reviewed
Vital Signs / I&O / Oxygen:
Vital Signs
Temp Pulse Resp BP Pulse Ox
97.7 F 76 9 147/75 98
07/20/23 11:00 07/20/23 11:15 07/20/23 11:15 07/20/23 11:00 07/20/23 11:25
Intake and Output
07/19/23 07/20/23 07/21/23
06:59 06:59 06:59
Intake Total 1576.7 / 1597.7 1171.1 / 1216.1 230 / 230
Output Total 1400 / 1400 585 / 610 130 / 130
Balance 176.7 / 197.7 586.1 / 606.1 100 / 100
SaO2 [A/C] 100
SaO2 98
Physical Exam
General: Comfortable, Sweats (negative) and Other (Intubated)
HEENT: Normocephalic and Anicteric
Cardiovascular: S1-S2, Peripheral Edema (negative) and Other (normal rate)
Respiratory: Wheeze (negative), Crackles (negative), Rhonchi (negative), Non-Labored Respirations, ET Tube and Other (Mechanical/coarse breath sounds heard bilaterally)
GI: Soft and Non Distended
Neurology: Awake, Other (Pupils are +2 bilaterally and sluggish; (+) gag and cough reflex; (+) spontaneous movement seen in all 4 extremities (withdraws to pain)) and Other (Stiff extremities with resistance to flexion and extension of both arms and
legs)
Skin: Warm and Dry
Labs/Micro/Reports
Lab Data
07/20/23 04:36
07/20/23 04:36
Laboratory Results
07/19/23 07/20/23 07/20/23
20:00 04:36 04:58
PT 16.0 H
INR 1.30
APTT 38.3 H
pH Cancelled 7.43
pCO2 Cancelled 34 L
pO2 Cancelled 152 H
HCO3 Cancelled 22.6
O2 Delivery Level Cancelled 40%
Microbiology
07/18/23 13:50 Blood/Venous Blood Culture - Preliminary
No Growth in 24 hours- Final report to follow
--- NOTE | 2023-07-20 12:16 | PTCARENOTE ---
Placed on SBT at 0745. Pt tolerating well. Scant thick yellow secretions suctioned via ETT. Specimen sent to lab.
Mariah rivera NGT d/c'd and replaced with DHT. Pt thrashing head and raising arms to face while tube being placed.
All other assessments unchanged.
MRI for 1pm.
Family updated.
[2023-07-20] MEDS: SUBLIMAZE 50 MCG IV ×5 (12:38→18:29)
[2023-07-20] MEDS: LASIX 40 MG IV (14:46)
--- NOTE | 2023-07-20 14:53 | PTCARENOTE ---
Out of room 1245 to 1430 for MRI
[2023-07-20] MEDS: COREG 12.5 MG PO ×2 (17:56→21:13)
--- NOTE | 2023-07-20 18:38 | PTCARENOTE ---
Pt noted agitated, vent alarming, and rigid with care. Fentanyl bolus given and gtt increased which appeared to be minimally effective.
Productive cough with thick brown secretions. While suctioning, pt became more agitated. Propofol started. Pt thrashing head, pulling against restraints, biting tube, face turning red and vomited approx. 50ml what appeared to be bile and tube
feed. Propofol increased per protocol. Fentanyl bolus given when able per order and fentanyl gtt increased per protocol. Pt appears comfortable at this time. Tube feeds on hold
[2023-07-20] MEDS: SUBLIMAZE 100 IV (19:47)
--- NOTE | 2023-07-20 20:53 | PTCARENOTE ---
received patient at change of shift. suctioned ETT for copious tube feed like secretions. pt opens eyes but does not track. cough and gag reflex intact. pupils 2 and reactive. a flutter on the monitor. auguste intact draining clear yellow urine.
propofol and fentanyl infusing.
[2023-07-21] VITALS (25 sets, daily range): BP systolic 85–150; BP diastolic 49–87; BMI 27.9
[2023-07-21] MEDS: ZOSYN 50 IV ×4 (01:02→20:11)
[2023-07-21] MEDS: DIPRIVAN 100 IV (02:03)
[2023-07-21 04:39] LABS: Hematocrit 34.1 % (39.0-52.0); Hemoglobin 11.8 g/dL (13.0-18.0); Mean Corp Hgb Conc. 34.6 g/dL (33.0-37.0); Mean Corpuscular Hgb 32.5 pg (27.0-31.0); Mean Corpuscular Volume 93.9 fL (80.0-94.0); Mean Platelet Volume 10.7 fL (7.4-10.4); Platelet Count 108 10^3/uL (130-400); Red Blood Cell Count 3.63 10^6/uL (4.70-6.10); Red Cell Dist. Width 13.4 % (11.5-14.5); White Blood Cell Count 10.1 10^3/uL (4.8-10.8)
[2023-07-21 05:04] LABS: Blood Urea Nitrogen 30 mg/dl (9-20); Calcium 8.4 mg/dl (8.4-10.2); Carbon Dioxide 22 mmol/L (22-30); Chloride 106 mmol/L (98-107); Estimated Creatinine Clearance 69 ml/min; Glucose 100 mg/dl (70-99); Magnesium 2.2 mg/dl (1.6-2.3); Phosphorus 3.7 mg/dl (2.5-4.5); Potassium 3.8 mmol/L (3.5-5.1); Sodium 139 mmol/L (135-145); eGFR > 60.00
[2023-07-21] MEDS: TYLENOL ORAL SOLUTION 650 MG TUBE ×2 (05:25→11:09)
--- NOTE | 2023-07-21 05:31 | PTCARENOTE ---
cooling suit off at 2am. complete bed bath given. labs drawn. pt had a BM. auguste still draining clear yellow urine. sedation tapered down.
--- NOTE | 2023-07-21 06:37 | W.PN.HOSP.TC ---
Today's Communication/Plan
-
.
Assessment / Plan
Assessment / Plan
Physical Exam
General: Intubated and sedated no acute distress
HEENT: Normocephalic, Atraumatic, EOMI, MMM
Respiratory: Coarse breath sounds
Cardiac: Normal S1/S2, Regular Rate and Rhythm
GI: Soft, Nontender, Nondistended, Normal Bowel Sounds
Extremities: No Clubbing, Cyanosis, or Edema
Neuro: Sedated, he opened eyes to touch but did not follow commands
Psych: no agitation
78-year-old male with a past medical history of coronary artery disease status post CABG 1992, status post PCI with stent placement x 2, and hyperlipidemia presents after having outside hospital V-fib arrest. Apparently patient was golfing, and had
a witnessed syncopal episode. Police found him to be in V-fib arrest, he was shocked. When EMS arrived, he was in PEA rhythm. He received CPR, epinephrine, with ROSC. Temporary subglottic airway was placed. En route to the hospital, he had
another episode of V-fib, and was defibrillated again. He received 2 more doses of epinephrine, ROSC was obtained. Patient was intubated in the ER, and currently on a fentanyl drip. TTM was began in the ER.
#V-fib arrest/ Out of hospital sudden cardiac arrest s/p Shock
Echo w/ EF 31%, no urgent indication for catheterization
Records from [facility] received
Continue vent management as per button clamper, S/p TTM
EEG showed diffuse slowing no seizure activity was not a malignant EEG pattern
S/p dopamine drip, Levophed drip
Will need left heart cath and ICD prior to DC if there is neurologic recovery
Neurology following for neurologic recovery
Hold sedation, check brain MRI without contrast to evaluate for presence of anoxic brain injury
#Cardiogenic shock
S/p dopamine drip, s/p Levophed drip
Off pressers now
# Aspiration event
c/w suctioning
Hold off on Tube feeding for now
Check chest x ray
#CAD status post CABG 1992, PTCA 2011
Positive troponin as non-CO myocardial injury from cardiac arrest /shocks
Records from [facility] reviewed, Echo:
Stress test: 'Refused stress test.'
c/w Rectal aspirin daily 07/18
Will need ischemic workup if there is neurologic recovery
# Atrial flutter with rate controlled.
He will need anticoagulation once neurologic recovery is determined
# 3 mm subacute nonhemorrhagic cortical infarct at the medial aspect of the right parietal convexity
c/w aspirin
AC pending clearance from neurology
[id number] around 4
Appreciate neurology help
#Hyperlipidemia
Intolerant of statins
#Leukocytosis
Chest x-ray shows possible aspiration, continue empiric Zosyn
Respiratory Gram stain negative for organisms, shows white blood cells and epithelial cells, blood cultures negative to date, trend fever and white count
#Metabolic acidosis
Lactic acid normalized
#Hyperglycemia
Hemoglobin A1c 5.5, Accu-Cheks every 6 hours, sliding scale insulin every 6 hours
#Hypokalemia
Repleted and resolved
#Mildly elevated LFTs
Trend
DVT prophylaxis�subcu heparin
GGI prophylaxis- IV protonix
Okay for cardioversion and defibrillation, but no CPR
Total time spent to see the patient on the floor, examine the patient, review data and lab results, discuss treatment plan with patient, consultants, nursing staff around 57 minutes.
Anticipated Discharge: > 48 hours
Subjective/Interval History
-
Date of Service: July 21, 2023
Objective Data
-
Labs:
Laboratory Results
07/21/23
04:25
WBC 10.1
Hgb 11.8 L
Hct 34.1 L
Plt Count 108 L
Sodium 139
Potassium 3.8
Chloride 106
Carbon Dioxide 22
BUN 30 H
Creatinine 0.9
Glucose 100 H
Calcium 8.4
Vital Signs:
Vital Signs
Temp Pulse Resp BP Pulse Ox
98.5 F 56 18 122/65 96
07/21/23 03:05 07/21/23 06:30 07/21/23 06:30 07/21/23 06:00 07/21/23 06:30
I&O
07/19/23 07/20/23 07/21/23
06:59 06:59 06:59
Intake Total 1576.7 / 1597.7 1171.1 / 1216.1 669.0 / 669.0
Output Total 1400 / 1400 585 / 610 2019 / 2019
Balance 176.7 / 197.7 586.1 / 606.1 -1351.0 / -1351.0
--- NOTE | 2023-07-21 07:59 | W.PN.NEURO.1 ---
Today's Communication / Plan
-
-Minimize sedation as able
-Avoid fever and aggressively treat if fever occurs
-Repeat EEG
-Acceptable for anticoagulation at this point in time
-Monitor neurologic examination and will continue goals of care discussions depending on his course
Will follow
ICU time = 45 minutes
Neuro Assessment/Plan
Assessment
78-year-old male with a past med history of coronary artery disease CABG and coronary stent presented hospital after 2 V-fib cardiac arrest with shocks and ROSC obtained outside the hospital. He underwent targeted temperature monitoring.
EEG showed diffuse slowing no seizure activity was not a malignant EEG pattern
CT head noncontrast on admission did not not show early changes of anoxic brain injury or edema, no chronic infarcts or acute findings
MRI did not show evidence of anoxic brain injury, very small right parietal ischemic stroke
Neurologic exam 07/20 shows eye opening to voice, not obeying complex commands for me, did show localization of pain with the left arm
Assessment: Complicated prognosis, there have been no findings on EEG, neurologic examination and brain MRI that support poor prognosis in this patient. He has been showing some signs of awareness and responding to his family, shows localization of
pain with the left arm, eye-opening to voice but has not yet consistently obeyed commands, has required some on and off sedation which may be playing a role.
Possibility for a mild anoxic brain injury does exist that is beneath the resolution of a 1.5 Nadege MRI scan given the context of cardiac arrest and continued encephalopathy.
It does seem to me a reasonable likelihood that he will improve with time given no tests have supported a poor prognosis, but best estimation is that it seems likely that the patient will have neurologic disability moving forward
Continued monitoring for improvement of neurologic examination and minimizing sedation I feel is warranted, decision making will also be influenced by if he is able to come off ventilator. If not able to come off ventilator then would need to have
conversation with and children about what he would want in such a situation.
Ischemic stroke of the right parietal lobe is quite small and cannot explain the patient's global encephalopathy, etiology is most likely from either anoxia from arrest or cardiac embolism.
Acceptable for anticoagulation at this point in time (07/20)
Subjective/Objective
Subjective Data
Date of Service: July 21, 2023
Some vomiting overnight, no seizures seen, remains intubated, on fentanyl and propofol currently
Objective Data
Vital Signs
Temp Pulse Resp BP Pulse Ox
99.7 F 56 18 122/65 96
07/21/23 07:42 07/21/23 06:30 07/21/23 06:30 07/21/23 06:00 07/21/23 06:30
Lab Results
07/21/23 04:25
07/21/23 04:25
PT 16.0 Sec (11.4-14.6) H 07/20/23 04:36
INR 1.30 07/20/23 04:36
APTT 38.3 Sec (23.4-35.0) H 07/20/23 04:36
Sodium 139 mmol/L (135-145) 07/21/23 04:25
Potassium 3.8 mmol/L (3.5-5.1) 07/21/23 04:25
BUN 30 mg/dl (9-20) H 07/21/23 04:25
Glucose 100 mg/dl (70-99) H 07/21/23 04:25
Calcium 8.4 mg/dl (8.4-10.2) 07/21/23 04:25
Phosphorus 3.7 mg/dl (2.5-4.5) 07/21/23 04:25
Syb-A-Poaugxrxeiv Pept Cancelled 07/17/23 10:40
Patient Allergies
shellfish derived Allergy (Verified 07/17/23 11:10)
Unknown
Review of Systems
-
Unable to obtain full review of systems at this time due to: Patient Intubation
Physical Exam
-
General: Intubated
Eyes: No Ptosis
HEENT: Normocephalic
Respiratory: No Dyspnea; Negative Accessory Resp Muscle Use
Cardiac: No Murmur
GI: Soft and Non-tender
Skin: Negative Rash
Extended Neurological Exam
Attention Span & Concentration: Other (Eyes open to voice consistently, not tracking or obeying commands to show thumb or move extremities, moved right hand in response to pain of legs, localized to pain on the right chest with left arm)
Memory: Unable to Assess
Involuntary Movement: None
Speech: Mute
Cranial Nerve II: Left Eye: Pupillary Reactivity Unremarkable and Pupillary Size Unremarkable
Cranial Nerve II: Right Eye: Pupillary Reactivity Unremarkable and Pupillary Size Unremarkable
Cranial Nerves III, IV, : Extraocular Movement: Other (Resting gaze midline)
Cranial Nerve V: Facial Sensation: Other (Corneal intact bilaterally)
Cranial Nerve VII: Facial Symmetry: Other (Corneal intact bilaterally)
Cranial Nerves IX, X: Palate Movement: Other (Cough gag intact)
Muscle Strength, Overall: Other (Withdrawal 3/5 of hip flexion bilaterally, some movement of right hand with leg pain, localized to pain on the right chest with the left arm)
Touch Sensation: Withdrawal to Pain
Babinski Sign: Absent Bilaterally
Data Reviewed
-
CT Head: Report Reviewed and Image Reviewed
MRI Head: Report Reviewed and Image Reviewed
EEG: Report Reviewed
Labs: Report Reviewed
[2023-07-21] MEDS: SUBLIMAZE 50 MCG IV ×2 (08:03→21:35)
[2023-07-21] MEDS: ASPIRIN 300 MG RECTAL (08:08)
[2023-07-21] MEDS: BUSPAR 30 MG TUBE ×3 (08:08→23:01)
[2023-07-21] MEDS: REFRESH CELLUVISC GEL 1 DROPS OPHTH ×2 (08:09→20:11)
[2023-07-21] MEDS: PROTONIX IV 40 MG IV (08:23)
[2023-07-21] MEDS: NSS (PRESERVATIVE FREE) 10 ML IV (08:24)
[2023-07-21] MEDS: HEPARIN 5000 UNITS SC (08:26)
[2023-07-21] MEDS: LIDOCAINE 4% PATCH 1 PATCH TOPICAL (08:33)
--- NOTE | 2023-07-21 09:08 | W.PN.INTV ---
Today's Communication / Plan
Recommendations
Rewarmed starting 07/17 at 3 PM --> now normothermic
Limit sedation as much as possible
Neuro consulted - recs appreciated
Keep core temperature probe attached at least 24-48 hours s/p rewarming to monitor for fever - ok to remove temperature sensing probe today
Follow up sputum Cx (GNR), blood Cx
Replete K>4, Mg>2
MAP>65
Diurese again today given voluem overload seen on CXR
Ischemic eval if he does improve per cardiology
Guarded prognosis
Assessment
-
Patient is a 78-year-old male with previous history of CAD, presenting to ER after witnessed syncopal episode while playing golf this morning. 911 called, police arrived and patient was reportedly in V-fib arrest, AED used which defibrillated.
EMS arrived shortly after and patient was found to be in PEA rhythm. CPR was initiated and patient was given 2 doses of epinephrine with return of spontaneous circulation. He was attempted to be intubated prehospital but airway could not be
established. Temporary subglottic airway was placed and patient was bagged on the way to the hospital. He unfortunately suffered another cardiac arrest en route. V-fib was noted and patient was defibrillated again with 2 more doses of epinephrine.
ROSC was obtained at ER evaluation. Intubated in ER and admitted to ICU following initiation of TTM.
Impression:
Acute cardiac arrest/VF s/p shock x 2 and CPR, PEA after 07/17/23 s/p therapeutic hypothermia (reached normothermic temperature on 07/19/2023)
Acute respiratory failure with hypoxia on mechanical ventilation
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
Shock on vasopressors - likely due to sedation - shock state now resolved
Acute HFrEF
Bradycardia - now resolved - was due to therapeutic hypothermia, he required dopamine, but now he is off dopamine and off levophed
Aspiration PNA with GNR seen on sputum culture
Mild leukocytosis - resolved
Metabolic acidosis - resolved
Hyperglycemia - resolved
Elevated LFTs
Elevated troponin - likely due to ACS in setting of CPR (EKG with yessenia-inferolateral ST-depressions with frequent PVCs) and TTE with apex + apical segment hypokinesis
Acute HFrEF with stage III diastolic dysfunction
Mild-moderate MR with mild pHTN (PASP: 36mmHg)
Atrial fibrillation - new onset
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
CAD status post CABG
Hyperlipidemia
Plan
Since being rewarmed he has awoken, opening eyes but not consistently following commands
Limit sedation and keep off as much as possible, using prn fentanyl
Keep on pressure support all day as long as he is tolerating, and place back to AC/CMV tonight with light sedation, and then we can resume SAT/SBT again tomorrow AM
Neurology consulted - recs appreciated
MRI brain negative for anoxic brain injury and shows small cortical infarct in the right parietal lobe - maintain normotension; neuro on board with recs appreciated
Initial CT Head neg
RASS goals: 0 to +1 and 0 to -1 when on full vent support
Hemodynamically stable, not requiring pressors.
Cardiac history reviewed--CAD s/p CAB history, follows outpatient cards
Trops elevated -peaked at 19.8 on 07/17/2023 � no longer need to check given it's been trending downwards
VF history
ECHO reviewed
Maintain HR<110 and >50
Cards following
Heparin gtt
He will need an ischemic eval with [facility] depending on his recovery course - I consulted neurology on 07/18 to help prognosticate, as he is minimally following commands despite him awakening
Intubated for cardiac arrest
Vent settings reviewed, adjust as needed --> wean during the day with full AC/CMV at night
ABGs reviewed, adequate for now
Prior history of lung disease: none, lifelong nonmoker
Titrate FiO2 and PEEP to maintain sats > 94%
CXR/CT reviewed indicating edema vs aspiration, Zosyn added
Follow-up sputum Cx � growing GNR, follow-up species and sensitivities; blood Cx shows NGTD (from 07/18/2023)
NPO
OGT placed with red output, traumatic intubation --> trend Hb and continue PPI
Tucking Machine Operator recommendations reviewed --> started TF on 07/18
Aspiration precautions, HOB > 30 degrees
GI prophylaxis is indicated
Creat at baseline, no history of renal disease
Void trials
Follow urine output, critical I/Os
Replete electrolytes as needed
Met acidosis likely post cardiac arrest
Possible aspiration PNA
Started on empiric antibiotics with Zosyn (started 07/16) - complete a 7 day course assuming he remains afebrile for 48 hrs preceding to stop Abx
Cx being checked as stated above
Follow fever trend, WBC count
CBC stable, no signs of bleeding or coagulopathy.
Possible GIB, on SQ heparin
DVT prophylaxis as assessed based on risk, including mechanical SCDs- continue HSQ
Can transfuse if indicated for Hb <7, plt < 10
INR WNL
No prior h/o diabetes or thyroid disease
Goal BG 140-180mg/dL
Dr. Andujar had spoken with family at bedside regarding TTM, they are aware of what to expect. They confirm he should be DNR. They do not want to cause further brain injury. Would accept cardioversion or defibrillation if needed but no CPR. Updated
in chart.
I updated the daughters x2 today at bedside and I answered all her questions. Emotional support was also provided.
Critical care statement: A total of 40 minutes of critical care time was provided for this patient today. This includes management of unstable vital signs, evaluation of the patient at bedside, reviewing the patient's pertinent medical records
including radiographs, microbiology, laboratory evaluations, and discussion with primary team, consultants, pharmacy, nutrition, physical therapy, case management, charge nurse, critical care nursing, and respiratory therapy.
Diagnostic Data
CXR 07-21-2023: No acute cardiopulmonary process. Improved pulmonary edema.
CXR 07-20-2023: Mild CHF and bibasilar atelectasis, progressed.
CXR 07-19-2023: No acute cardiopulmonary process.
Chest X-Ray: 07/17/23- . Endotracheal tube with tip approximately 5.5 cm above the thuy.
2. Low lung volumes. Bilateral interstitial and airspace opacities as above. Aspiration is a differential consideration. Interstitial and mild alveolar edema is also a consideration.
CT Scan: Neck- 1. No acute fracture or malalignment.
2. Multilevel mild to moderate degenerative changes thoracic spine.
3. Post endotracheal tube placement. Abnormal increased interstitial and airspace opacity in the upper lungs. Aspiration is a consideration. Interstitial and alveolar edema is possible.
HEAD - No acute intracranial abnormality identified.
Brain MRI 07-20-2023: There is a 3 mm subacute nonhemorrhagic cortical infarct at the medial aspect of the right parietal convexity
There is mild cortical with mild nonspecific white matter changes
Echo: 07-17-2023
Technically difficult study.
Severely reduced left ventricular systolic function. Left ventricular ejection
fraction is 31%.
Regional wall motion abnormalities (below) consistent with CAD.
Mild to moderate mitral regurgitation.
Mild tricuspid regurgitation. Estimated pulmonary artery pressure of 36 mmHg.
No prior study available for comparison.
Reports and relevant images were personally reviewed.
Subjective Dataa
Subjective Data
Date of Service:
Date of Service: July 21, 2023
Chief Complaint: Armhole Baster Jumpbasting Follow Up
Subjective:
Patient seen and evaluated today at bedside. Respiratory culture growing GNR. Spoke with daughters at bedside. Answered all the questions. He remains on heparin drip due to A-fib. He is weaning right now via ETT on CPAP 10/5, 40% FiO2, with
peak pressure 16 and VTe 672 mL. He does not follow my commands but he does open his eyes to voice.
Review of Systems
General: Other (Unable to obtain as patient remains minimally responsive/intubated)
Objective Data
Data Reviewed
Vital Signs / I&O / Oxygen:
Vital Signs
Temp Pulse Resp BP Pulse Ox
99.7 F 73 21 99/57 99
07/21/23 07:42 07/21/23 11:15 07/21/23 11:15 07/21/23 11:00 07/21/23 11:15
Intake and Output
07/20/23 07/21/23 07/22/23
06:59 06:59 06:59
Intake Total 1171.1 / 1216.1 669.0 / 679.6 10.6 / 10.6
Output Total 585 / 610 2019 / 2059 165 / 165
Balance 586.1 / 606.1 -1351.0 / -1380.4 -154.4 / -154.4
SaO2 [A/C] 98
SaO2 99
Physical Exam
General: Comfortable, Sweats (negative) and Other (Intubated)
HEENT: Normocephalic and Anicteric
Cardiovascular: Irregular Rhythm, Peripheral Edema (negative) and Other (normal rate)
Respiratory: Wheeze (negative), Crackles (negative), Rhonchi (negative), Non-Labored Respirations, ET Tube and Other (Mechanical/coarse breath sounds heard bilaterally)
GI: Soft, Non Distended, Non Tender and Normal Bowel Sounds
Neurology: Awake and Other (Pupils are +2 bilaterally and sluggish; (+) gag and cough reflex; (+) spontaneous movement seen in all 4 extremities (withdraws to pain))
Skin: Warm and Dry
Labs/Micro/Reports
Lab Data
07/21/23 10:42
07/21/23 04:25
Laboratory Results
07/20/23 07/21/23
08:00 10:42
APTT 42.1 H
pH Cancelled
pCO2 Cancelled
pO2 Cancelled
HCO3 Cancelled
O2 Delivery Level Cancelled
Microbiology
07/20/23 08:50 Tracheal Aspirate Respiratory Culture - Preliminary
Gram negative bacilli
07/20/23 08:50 Tracheal Aspirate Gram Stain - Preliminary
07/18/23 13:50 Blood/Venous Blood Culture - Preliminary
No Growth in 48 hours- Final report to follow
[2023-07-21] MEDS: COREG PO ×3 (09:18→20:24)
--- NOTE | 2023-07-21 09:57 | PTCARENOTE ---
Pt received in bed @ 0700. Received on Propofol and Fentanyl gtt but turned off per protocol and prior to SBT. Pt opens eyes spontaneously. Pupils reactive. Moves all extremities but unable to follow commands. Atrial flutter on front desk monitor.
Peripheral pulses palpable. No edema observed. #8 ETT @ 24cm to center lip. Suctioned for moderate thick green yellow sputum. Oral care provided. AC (20/500/40%/5+). SBT attempted. Pt apneic. Unable to maintain tidal volumes due to tube biting. HR
to 40s. PRN Fentanyl administered and pt returned to AC ventilation. HR raised to 60s - 70s with occasional observations in 40s. Cloth Examiner Machine, Dr. Arthur, notified. Instructed to hold AM Coreg. Right nare Dobhoff tube in place. Tube feed on hold
due to episode of emesis yesterday. Kaur catheter in place draining clear yellow urine. (R) DL PICC place.
--- NOTE | 2023-07-21 10:05 | W.PN.CD ---
Today's Communication / Plan
-
heparin gtt for a flutter
holding coreg for now
Impression / Plan
-
78M with established CAD (CABG ' with subsequent PCIs) with resuscitated sudden cardiac arrest (AED shock). Collapsed while golfing. An AED was found and, by report, delivered a shock. When EMS arrived, they found PEA. He had ROSC with EMS ACLS.
Then VF/VT with ROSC after ACLS again. EKG shows AF with ST depressions and peak troponin is 19.
Out of hospital sudden cardiac arrest treated with AED shock
Troponin elevation
- Likely elevated from primary arrhythmia, cannot rule out NSTEMI
- Will treat as non-MN myocardial injury from cardiac arrest/down time/shocks
Neuro status
- opens eyes and makes hand movements
Atrial flutter
- Slow ventricular response
- [id number] at least 4 (HF/low EF, age2, vascular disease)
- discussed with neuro OK for heparin gtt
CAD s/p CABG
Ischemic cardiomyopathy
Mixed hyperlipidemia
Daughter/medical POA
Subjective:opening eyes and making hand/arm movements
Echo 07/17/2023: LVEF 31%. Regional wall motion abnormalities, mild to mod MR
Physical Exam
Vital Signs/Labs
Vital Signs
Temp Pulse Resp BP Pulse Ox
99.7 F 56 18 122/65 98
07/21/23 07:42 07/21/23 06:30 07/21/23 06:30 07/21/23 06:00 07/21/23 08:00
07/20/23 07/21/23 07/22/23
06:59 06:59 06:59
Actual Weight 198 lb 3.129 oz 188 lb 7.924 oz
07/21/23 04:25
07/21/23 04:25
PT 16.0 Sec (11.4-14.6) H 07/20/23 04:36
INR 1.30 07/20/23 04:36
APTT 38.3 Sec (23.4-35.0) H 07/20/23 04:36
Magnesium 2.2 mg/dl (1.6-2.3) 07/21/23 04:25
Triglycerides 96 mg/dl (10-149) 07/20/23 04:36
07/17/23 07/17/23
09:46 10:40
Jih-F-Wgzwaotrrgv Pept 1210 Cancelled
LAB Results
07/18/23 07/18/23 07/18/23
10:01 16:06 22:00
Troponin I 8.210 H* 4.780 H* D Cancelled
Physical Exam
Constitutional: No acute distress and Other (intubated )
Cardiovascular: Pedal edema is absent and Rhythm/rate is irregular
Respiratory: Respiratory effort normal and Rhonchi Present
GI: Soft
Neuro/Psych: Other (intubated)
Data Reviewed
-
Date of Service: July 21, 2023
Medical Decision Making: Reviewed Test Results
EKG: Tracing Personally Visualized and interpreted (a flutter )
Echo: Report Reviewed by me
Labs: Labs Reviewed by me
Critical Care Time (in minutes): 31
[2023-07-21 11:00] LABS: Hematocrit 32.8 % (39.0-52.0); Hemoglobin 11.5 g/dL (13.0-18.0); Mean Corp Hgb Conc. 35.1 g/dL (33.0-37.0); Mean Corpuscular Hgb 32.5 pg (27.0-31.0); Mean Corpuscular Volume 92.7 fL (80.0-94.0); Platelet Count 113 10^3/uL (130-400); Red Blood Cell Count 3.54 10^6/uL (4.70-6.10); Red Cell Dist. Width 13.5 % (11.5-14.5); White Blood Cell Count 8.9 10^3/uL (4.8-10.8)
[2023-07-21] MEDS: HEPARIN 25000 UNITS/250 ML IV (11:06)
[2023-07-21 11:09] LABS: APTT 42.1 Sec (23.4-35.0)
[2023-07-21] MEDS: LASIX 40 MG IV (11:52)
--- NOTE | 2023-07-21 12:38 | PTCARENOTE ---
Pt reassessed. No changes observed. Remains off sedation. Moves all extremities. Eyes open spontaneously. Unable to follow commands. Remains in Atrial Flutter on playground monitor. Heparin gtt initiated @ 1000 units/hr through (R) DL PICC.
--- NOTE | 2023-07-21 16:04 | PTCARENOTE ---
Updates at bedside with Supervisor [employer] team and respiratory cares team. SBT with patient [id number] and [id number]%fio2 continue with pulmonary management and toileting program as needed. Oral cares and skin cares as per unit based protocols. Updated assessment
vital signs ongoing and as documented. Updates swith family at bedside, continue teaching and supportive cares.
[2023-07-21 17:50] LABS: APTT 121.2 Sec (23.4-35.0)
--- NOTE | 2023-07-21 20:00 | PTCARENOTE ---
Received patient intubated and restrained. Patient blinks spontaneously, opens eyes and tracks, but does not follow commands. Cough and gag present. Moves all extremities. Afib/flutter, 40s-70s. BP stable, 110s-150s/60s-70s. Trace generalized
anasarca. On pressure support, 10/5, 40%. Respiratory rate 9-16, peak 19, tidal volume 400s, saturating 99%. Lung sounds coarse throughout. #8.0 ETT, 24 at the lip, on the right. Minimal clear, thin secretions. Right nare DHT. Rectal tube in place
draining liquid brown stool. Thermistor auguste in place, normothermic, draining yellow urine. Skin intact, lidocaine patch removed from chest. Right DL PICC patent, WNL. 2 PIVs in left arm patent, WNL. Family at bedside, support provided and
questions answered.
[2023-07-22] VITALS (26 sets, daily range): BP systolic 103–149; BP diastolic 47–98; BMI 28.7
[2023-07-22 00:19] LABS: APTT 124.9 Sec (23.4-35.0)
[2023-07-22] MEDS: SUBLIMAZE 50 MCG IV (00:44)
--- NOTE | 2023-07-22 00:48 | PTCARENOTE ---
Patient intermittently following commands to squeeze hands, raise eyebrows, and stick tongue out. Put back on AC for the night, given fentanyl bolus x2 for vent dyssynchrony and restlessness. Mouth care done, repositioned. Otherwise patient
assessment unchanged from previous.
[2023-07-22] MEDS: ZOSYN 50 IV ×4 (02:27→20:36)
--- NOTE | 2023-07-22 04:00 | PTCARENOTE ---
Patient assessment unchanged from previous. CHG bath done, labs sent, mouth care done, and repositioned.
[2023-07-22 05:18] LABS: Hemoglobin 11.3 g/dL (13.0-18.0); Mean Corp Hgb Conc. 35.3 g/dL (33.0-37.0); Mean Corpuscular Hgb 32.9 pg (27.0-31.0); Mean Corpuscular Volume 93.3 fL (80.0-94.0); Mean Platelet Volume 10.3 fL (7.4-10.4); Platelet Count 116 10^3/uL (130-400); Red Blood Cell Count 3.43 10^6/uL (4.70-6.10); Red Cell Dist. Width 13.4 % (11.5-14.5); White Blood Cell Count 9.8 10^3/uL (4.8-10.8)
[2023-07-22 05:40] LABS: Blood Urea Nitrogen 29 mg/dl (9-20); Calcium 8.4 mg/dl (8.4-10.2); Carbon Dioxide 25 mmol/L (22-30); Chloride 105 mmol/L (98-107); Estimated Creatinine Clearance 69 ml/min; Glucose 123 mg/dl (70-99); Magnesium 2.2 mg/dl (1.6-2.3); Phosphorus 3.2 mg/dl (2.5-4.5); Potassium 3.1 mmol/L (3.5-5.1); Sodium 139 mmol/L (135-145); eGFR > 60.00
[2023-07-22] MEDS: KCL ELIXIR 40 MEQ TUBE (05:59)
--- NOTE | 2023-07-22 06:22 | W.PN.HOSP.TC ---
Today's Communication/Plan
-
.
Assessment / Plan
Assessment / Plan
Physical Exam
General: Intubated and sedated no acute distress
HEENT: Normocephalic, Atraumatic, EOMI, MMM
Respiratory: Coarse breath sounds
Cardiac: Normal S1/S2, Regular Rate and Rhythm
GI: Soft, Nontender, Nondistended, Normal Bowel Sounds
Extremities: No Clubbing, Cyanosis, or Edema
Neuro: Sedated, he opened eyes to touch but did not follow commands
Psych: no agitation
78-year-old male with a past medical history of coronary artery disease status post CABG 1992, status post PCI with stent placement x 2, and hyperlipidemia presents after having outside hospital V-fib arrest. Apparently patient was golfing, and had
a witnessed syncopal episode. Police found him to be in V-fib arrest, he was shocked. When EMS arrived, he was in PEA rhythm. He received CPR, epinephrine, with ROSC. Temporary subglottic airway was placed. En route to the hospital, he had
another episode of V-fib, and was defibrillated again. He received 2 more doses of epinephrine, ROSC was obtained. Patient was intubated in the ER, and currently on a fentanyl drip. TTM was began in the ER.
#V-fib arrest/ Out of hospital sudden cardiac arrest s/p Shock
No recurrent arrhythmias.
Echo w/ EF 31%, no urgent indication for catheterization
Records from [facility] received
Continue vent management as per head swamper, S/p TTM. He did well on CPAP trial, for spontaneous breathing trial expect extubation hopefully in next 24 to 48 hours
EEG showed diffuse slowing no seizure activity was not a malignant EEG pattern. Repeat EEG today
S/p dopamine drip, Levophed drip
For cardiac ischemic workup in near future
On Tube feeding
Appreciate ICU doctor, cardiology, neurology help
#Cardiogenic shock
S/p dopamine drip, s/p Levophed drip
Off pressers now
# Aspiration event
Repeat chest x-ray no consolidation. No worsening hypoxia.
# Hypokalemia, replace
#CAD status post CABG 1992, PTCA 2011
Positive troponin as non-PR myocardial injury from cardiac arrest /shocks
Records from [place] reviewed, Echo:
Stress test: 'Refused stress test.'
c/w Rectal aspirin daily 07/18, changed to tube
# Atrial flutter with rate controlled.
Started on IV heparin 07/20. Monitor PTT
Rate controlled with carvedilol
# 3 mm subacute nonhemorrhagic cortical infarct at the medial aspect of the right parietal convexity
c/w aspirin
Started on IV heparin 07/20
[id number] around 4
Appreciate neurology help
#Hyperlipidemia
Intolerant of statins
#Leukocytosis, resolved
Chest x-ray shows possible aspiration, continue empiric Zosyn
#Metabolic acidosis
Lactic acid normalized
#Hyperglycemia
Hemoglobin A1c 5.5, Accu-Cheks every 6 hours, sliding scale insulin every 6 hours
#Hypokalemia
Repleted and resolved
#Mildly elevated LFTs
Trend
DVT prophylaxis� IV heparin
GGI prophylaxis- IV Protonix
Okay for cardioversion and defibrillation, but no CPR
Total time spent to see the patient on the floor, examine the patient, review data and lab results, discuss treatment plan with patient, consultants, nursing staff around 57 minutes.
Anticipated Discharge: > 48 hours
Subjective/Interval History
-
Date of Service: July 22, 2023
No fevers or problems with TF over night
He followed commands this morning
Objective Data
-
Labs:
Laboratory Results
07/21/23 07/22/23 07/22/23
23:55 05:09 06:45
WBC 9.8
Hgb 11.3 L
Hct 32.0 L
Plt Count 116 L
APTT 124.9 H Pending
Sodium 139
Potassium 3.1 L
Chloride 105
Carbon Dioxide 25
BUN 29 H
Creatinine 0.9
Glucose 123 H
Calcium 8.4
Vital Signs:
Vital Signs
Temp Pulse Resp BP Pulse Ox
99.5 F 84 13 124/77 99
07/22/23 04:00 07/22/23 06:00 07/22/23 06:00 07/22/23 05:00 07/22/23 05:45
I&O
07/20/23 07/21/23 07/22/23
06:59 06:59 06:59
Intake Total 1171.1 / 1216.1 669.0 / 679.6 912.6 / 912.6
Output Total 585 / 610 2019 / 2059 2035.0 / 2035.0
Balance 586.1 / 606.1 -1351.0 / -1380.4 -1122.4 / -1122.4
[2023-07-22 06:51] LABS: APTT 79.9 Sec (23.4-35.0)
--- NOTE | 2023-07-22 07:25 | W.PN.CD ---
Today's Communication / Plan
-
Reduce aspirin to 81 mg daily.
Replace K+.
Wean sedation and extubate.
He will need a catheterization at some point.
Impression / Plan
-
Impression/Plan: 78M with established CAD (CABG '93 with subsequent PCIs) with resuscitated VF arrest (AED shock).
#Out of hospital cardiac arrest
-Acute.
-VF by report, treated with AED shock.
-Patient suffered PEA and a second VF arrest en route to hospital.
-TTM started on arrival to ICU, rewarmed starting on 07/19/2023.
-EKG post resuscitation shows AF with ST depressions, no elevations.
-He will need cardiac catheterization as he appears neurologically intact.
-If no obvious ischemic culprit, we will discuss secondary prevention ICD.
-Daughter/medical POA.
#Troponin elevation
-Likely elevated from primary arrhythmia, cannot rule out NSTEMI.
-Will treat as non-[place] myocardial injury from cardiac arrest/down time/shocks.
#Neuro status/CVA
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
-Localizing to pain, not consistently following commands.
-Lighten sedation as possible.
-Defer to neuro.
#Atrial flutter
-Slow ventricular response.
-[id number] at least 4 (HF/low EF, age2, vascular disease).
-Heparin gtt.
#VDRF
-Acute.
-Piperacillin-tazobactam for possible aspiration.
-Management per pulmonary/CCM.
-Likely extubation if he passes SBT.
#CAD s/p CABG
-Chronic.
-We do not know anatomy. Most of his care is through [facility].
-Decrease aspirin to low dose (currently 300 mg).
#Ischemic cardiomyopathy
-Uncertain duration.
-LVEF 31% on DH echo.
#Mixed hyperlipidemia
-Chronic.
-Possible statin intolerance.
-Outside records show that he is on alirocumab 150 mg q2 weeks.
Critical Care Time = 38 minutes.
Subjective/Interval History:
Weight is up 2.7 kg from yesterday.
Nursing reports that patient is responding to commands but requiring fentanyl for vent dyssynchrony.
K is 3.1.
He responds correctly to questions when I assess him.
DATA:
TTE, 07/17/2023:
CONCLUSIONS
Technically difficult study.
Severely reduced left ventricular systolic function. Left ventricular ejection
fraction is 31%.
Regional wall motion abnormalities (below) consistent with CAD.
Mild to moderate mitral regurgitation.
Mild tricuspid regurgitation. Estimated pulmonary artery pressure of 36 mmHg.
No prior study available for comparison.
EEG, 07/17/2023:
LESS THAN 1 HOUR EEG REPORT
LESS THAN 1 HOUR EEG INTERPRETATION:
Moderately abnormal EEG for age due to diffuse bihemispheric slowing
CLINICAL CORRELATION:
This study was suggestive of mild diffuse cortical dysfunction without focal abnormality. No seizures were recorded.
Clinical correlation is advised.
Brain MRI, 07/20/2023:
IMPRESSION:
There is a 3 mm subacute nonhemorrhagic cortical infarct at the medial aspect of the right parietal convexity
There is mild cortical with mild nonspecific white matter changes as described above.
Physical Exam
Vital Signs/Labs
Vital Signs
Temp Pulse Resp BP Pulse Ox
37.5 C 80 13 124/77 98
07/22/23 04:00 07/22/23 06:30 07/22/23 06:30 07/22/23 05:00 07/22/23 06:30
07/20/23 07/21/23 07/22/23
11:59 11:59 11:59
Actual Weight 89.9 kg 85.5 kg 88.2 kg
07/22/23 05:09
07/22/23 05:09
PT 16.0 Sec (11.4-14.6) H 07/20/23 04:36
INR 1.30 07/20/23 04:36
APTT 79.9 Sec (23.4-35.0) H 07/22/23 06:28
Magnesium 2.2 mg/dl (1.6-2.3) 07/22/23 05:09
Triglycerides 96 mg/dl (10-149) 07/20/23 04:36
07/17/23 07/17/23
09:46 10:40
Bqf-H-Pzjutuehuim Pept 1210 Cancelled
Physical Exam
Constitutional: No acute distress and Comfortable
EENT: Anicteric, Moist mucous membranes and Other (ET Tube.)
Cardiovascular: Pedal edema is absent, JVD pressure is normal, Rhythm/rate is irregular, S1S2 is normal and Murmur/rub/gallop absent
Respiratory: Respiratory effort normal, Lungs clear to auscul., Wheeze Absent, Crackles Absent and Rhonchi Absent
GI: Soft, Distention absent, Flat, Non tender and Normal bowel sounds
Neuro/Psych: Other (Intubated/sedated.)
Data Reviewed
-
Date of Service: July 22, 2023
Medical Decision Making: Reviewed Test Results, Test Interpretation and Review of Case with other Provider
EKG: Tracing Personally Visualized and interpreted and Report Reviewed by me
Echo: Report Reviewed by me
X-Ray/CT/US/MRI/NUC/PET: Image Personally Visualized and interpreted and Report Reviewed by me
Labs: Labs Reviewed by me
Old Records: Reviewed
[2023-07-22] MEDS: ASPIRIN 300 MG RECTAL (07:31)
[2023-07-22] MEDS: REFRESH CELLUVISC GEL 1 DROPS OPHTH (07:31)
[2023-07-22] MEDS: BUSPAR 30 MG TUBE (07:31)
[2023-07-22] MEDS: NSS (PRESERVATIVE FREE) 10 ML IV (07:32)
[2023-07-22] MEDS: PROTONIX IV 40 MG IV (07:32)
[2023-07-22] MEDS: LIDOCAINE 4% PATCH 1 PATCH TOPICAL (07:33)
--- NOTE | 2023-07-22 09:01 | W.PN.INTV ---
Today's Communication / Plan
Recommendations
Rewarmed starting 07/17 at 3 PM --> now normothermic
Extubated today to nasal cannula
Neuro consulted - recs appreciated
Replete K>4, Mg>2
MAP>65
Ischemic eval per cardiology - this is recommended given he is now extubated and following commands
Tomorrow will consult PT/OT and INTERNATIONAL SALES REPRESENTATIVE
Assessment
-
Patient is a 78-year-old male with previous history of CAD, presenting to ER after witnessed syncopal episode while playing golf this morning. 911 called, police arrived and patient was reportedly in V-fib arrest, AED used which defibrillated.
EMS arrived shortly after and patient was found to be in PEA rhythm. CPR was initiated and patient was given 2 doses of epinephrine with return of spontaneous circulation. He was attempted to be intubated prehospital but airway could not be
established. Temporary subglottic airway was placed and patient was bagged on the way to the hospital. He unfortunately suffered another cardiac arrest en route. V-fib was noted and patient was defibrillated again with 2 more doses of epinephrine.
ROSC was obtained at ER evaluation. Intubated in ER and admitted to ICU following initiation of TTM.
Impression:
Acute cardiac arrest/VF s/p shock x 2 and CPR, PEA after 07/17/23 s/p therapeutic hypothermia (reached normothermic temperature on 07/19/2023)
Acute respiratory failure with hypoxia on mechanical ventilation (07/16)--> extubated today
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
Shock on vasopressors - likely due to sedation - shock state now resolved
Acute HFrEF
Bradycardia - now resolved - was due to therapeutic hypothermia, he required dopamine, but now he is off dopamine and off levophed
Aspiration PNA with Klebsiella aerogenes seen on sputum culture
Mild leukocytosis - resolved
Metabolic acidosis - resolved
Hyperglycemia - resolved
Elevated LFTs � resolved
Elevated troponin - likely due to ACS in setting of CPR (EKG with yessenia-inferolateral ST-depressions with frequent PVCs) and TTE with apex + apical segment hypokinesis � peaked at 19.8 on 07/17/2023
Acute HFrEF with stage III diastolic dysfunction
Mild-moderate MR with mild pHTN (PASP: 36mmHg)
Atrial fibrillation - new onset
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
CAD status post CABG
Hyperlipidemia
Plan
Since being rewarmed he has awoken, opening eyes but not consistently following commands
Today he made s lsrge positive stride showing marked improvement and was extubated to nasal cannula
He is following commands although he does have some delayed to his motor movements
Neurology consulted - recs appreciated
MRI brain negative for anoxic brain injury and shows small cortical infarct in the right parietal lobe - maintain normotension; neuro on board with recs appreciated
Initial CT Head neg
Hemodynamically stable, not requiring pressors.
Cardiac history reviewed--CAD s/p CAB history, follows outpatient cards
Trops elevated - peaked at 19.8 on 07/17/2023 � no longer need to check given it's been trending downwards
VF history
ECHO reviewed
Maintain HR<110 and >50
Cards following
Heparin gtt
He will need an ischemic eval with [facility] now that he has woken up and was extubated this AM, and is following commands
Prior history of lung disease: none, lifelong nonmoker
Titrate nasal cannula flow rate to maintain sats > 94%
CXR/CT reviewed indicating edema vs aspiration, Zosyn added - complete 7 days total assuming he remains afebrile for 48 hrs prior to doing so
Sputum culture growing Klebsiella aerogenes with inducible AMP-C. Continue Zosyn; blood Cx shows NGTD (from 07/18/2023)
NPO - will do swallow study probably tomorrow as he is still weak and slow to respond
Keep NGT in place for nutrition and PO access
Initial OGT was placed with red output, traumatic intubation --> trend Hb and continue PPI
Bellhop Captain recommendations reviewed --> started TF on 07/18
Aspiration precautions, HOB > 30 degrees
GI prophylaxis was indicated due to intubation, however now that he is extubated, as long as his Hb remained stable by tomorrow then I will DC
Creat at baseline, no history of renal disease
Void trials
Follow urine output --> now that extubated, ok to remove auguste
Replete electrolytes as needed
Possible aspiration PNA
Started on empiric antibiotics with Zosyn (started 07/16) - complete a 7 day course assuming he remains afebrile for 48 hrs preceding to stop Abx
Follow fever trend, WBC count
CBC stable, no signs of bleeding or coagulopathy, although his platelet count is <150, and this needs to continue to be trended; transfuse if needed to keep >20k
Possible GIB, on heparin gtt due to his new-onset A-fib
DVT prophylaxis as assessed based on risk, including mechanical SCDs- continue hep gtt
Can transfuse if indicated for Hb <7, plt < 20k
INR WNL
No prior h/o diabetes or thyroid disease
Goal BG 140-180mg/dL
Dr. Andujar had spoken with family at bedside regarding TTM, they are aware of what to expect. They confirm he should be DNR. They do not want to cause further brain injury. Would accept cardioversion or defibrillation if needed but no CPR. Updated
in chart.
I have been updating the daughters x2 today at bedside and I answered all her questions.
Critical care statement: A total of 38 minutes of critical care time was provided for this patient today. This includes management of unstable vital signs, evaluation of the patient at bedside, reviewing the patient's pertinent medical records
including radiographs, microbiology, laboratory evaluations, and discussion with primary team, consultants, pharmacy, nutrition, physical therapy, case management, charge nurse, critical care nursing, and respiratory therapy.
Diagnostic Data
CXR 07-21-2023: No acute cardiopulmonary process. Improved pulmonary edema.
CXR 07-20-2023: Mild CHF and bibasilar atelectasis, progressed.
CXR 07-19-2023: No acute cardiopulmonary process.
Chest X-Ray: 07/17/23- 1. Endotracheal tube with tip approximately 5.5 cm above the thuy.
2. Low lung volumes. Bilateral interstitial and airspace opacities as above. Aspiration is a differential consideration. Interstitial and mild alveolar edema is also a consideration.
CT Scan: Neck- 1. No acute fracture or malalignment.
2. Multilevel mild to moderate degenerative changes thoracic spine.
3. Post endotracheal tube placement. Abnormal increased interstitial and airspace opacity in the upper lungs. Aspiration is a consideration. Interstitial and alveolar edema is possible.
HEAD - No acute intracranial abnormality identified.
Brain MRI 07-20-2023: There is a 3 mm subacute nonhemorrhagic cortical infarct at the medial aspect of the right parietal convexity
There is mild cortical with mild nonspecific white matter changes
Echo: 07-17-2023
Technically difficult study.
Severely reduced left ventricular systolic function. Left ventricular ejection
fraction is 31%.
Regional wall motion abnormalities (below) consistent with CAD.
Mild to moderate mitral regurgitation.
Mild tricuspid regurgitation. Estimated pulmonary artery pressure of 36 mmHg.
No prior study available for comparison.
Reports and relevant images were personally reviewed.
Subjective Dataa
Subjective Data
Date of Service:
Date of Service: July 22, 2023
Chief Complaint: President & Ceo Follow Up
Subjective:
Patient seen and evaluated today at bedside. He is now following commands, lifting his head above the pillow and tolerating pressure support trial. He was on CPAP 5/5 saturating 98%, heart rate 55 and BP 124/77. Decision made to extubate. I
updated family members shortly after he was extubated. NIH stroke scale this morning as per nurse is 7.
Review of Systems
General: Other (Negative unless mentioned above)
Objective Data
Data Reviewed
Vital Signs / I&O / Oxygen:
Vital Signs
Temp Pulse Resp BP Pulse Ox
99.5 F 80 13 124/77 98
07/22/23 04:00 07/22/23 06:30 07/22/23 06:30 07/22/23 05:00 07/22/23 08:39
Intake and Output
07/21/23 07/22/23 07/23/23
06:59 06:59 06:59
Intake Total 669.0 / 679.6 912.6 / 912.6
Output Total 2019 / 2059 2035.0 / 2035.0
Balance -1351.0 / -1380.4 -1122.4 / -1122.4
SaO2 [CPAP] 100
SaO2 [A/C] 99
SaO2 98
Physical Exam
General: Comfortable and Sweats (negative)
HEENT: Normocephalic and Anicteric
Cardiovascular: Peripheral Edema (negative) and Other (normal rate)
Respiratory: Wheeze (negative), Crackles (Bibasilar), Rhonchi (negative) and Non-Labored Respirations
GI: Soft, Non Distended, Non Tender and Normal Bowel Sounds
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
Skin: Warm and Dry
Labs/Micro/Reports
Lab Data
07/22/23 05:09
07/22/23 05:09
Laboratory Results
07/21/23 07/21/23 07/21/23
10:42 17:21 23:55
APTT 42.1 H 121.2 H 124.9 H
07/22/23
06:28
APTT 79.9 H
Microbiology
07/18/23 13:50 Blood/Venous Blood Culture - Preliminary
No Growth in 72 hours- Final report to follow
07/20/23 08:50 Tracheal Aspirate Respiratory Culture - Preliminary
Gram negative bacilli
07/20/23 08:50 Tracheal Aspirate Gram Stain - Preliminary
--- NOTE | 2023-07-22 09:27 | EEG.RPT ---
Electroencephalogram Report
Recording
Date of EE07/22/23
Type of EEG: Routine
Length of EEG recordin minutes
Done with Video Recording: Yes
Patient Status: Inpatient
Recording Conditions: Awake and Drowsy
Hyperventilation Performed: No
Photic Stimulation Performed: Yes
Report
LESS THAN 1 HOUR EEG INTERPRETATION:
Unremarkable EEG for age
CLINICAL CORRELATION:
A normal EEG does not rule out a diagnosis of epilepsy. In comparison with the patient's prior study, there is mild improvement in that there is better maintenance of an alpha background
If clinical suspicion for seizure persists, a prolonged recording may be warranted.
Clinical correlation is advised.
METHODS:
A 21 channel digitized electroencephalogram (EEG) was performed using the 10/20 international system of electrode placement and one-lead of ECG recorded. The [employer] quantitative EEG system was utilized.
ELECTROENCEPHALOGRAPHER IMPRESSION(S):
Quality of study
Good
Background
There was a fair anterior-posterior voltage gradient of low-voltage alpha-maximal frequency.
With eye opening the background activity changed to a low voltage mixture of frequencies.
There were no significant asymmetries of background activity noted.
Sleep
Drowsiness present
Photic Stimulation
Produced activation at some intermediate flash frequencies, symmetrically
ECG
Irregular with pauses
--- NOTE | 2023-07-22 09:30 | W.PN.NEURO.1 ---
Today's Communication / Plan
-
Acceptable for anticoagulation at this point, would discontinue aspirin when starting anticoagulation from neurological perspective
Neuro Assessment/Plan
Assessment
78-year-old male with a past med history of coronary artery disease CABG and coronary stent presented hospital after 2 V-fib cardiac arrest with shocks and ROSC obtained outside the hospital. He underwent targeted temperature monitoring.
EEG showed diffuse slowing no seizure activity was not a malignant EEG pattern, twice
CT head noncontrast on admission did not not show early changes of anoxic brain injury or edema, no chronic infarcts or acute findings
MRI did not show evidence of anoxic brain injury, very small right parietal ischemic stroke
Assessment: Good prognosis, based on improved mentation while off sedation
Possible mild anoxic brain injury does exist that is beneath the resolution of a 1.5 Nadege MRI scan given the context of cardiac arrest and continued encephalopathy.
Ischemic stroke of the right parietal lobe is quite small and cannot explain the patient's global encephalopathy, etiology is most likely from either anoxia from arrest or cardiac embolism.
Plan
Acceptable for anticoagulation at this point, would discontinue aspirin when starting anticoagulation from neurological perspective
Avoid sedation when possible
Continue as outpatient Alirocumab
Will follow as needed. Please contact us with additional questions or issues
Subjective/Objective
Subjective Data
Date of Service: July 22, 2023
Patient reports no current pain
Objective Data
Vital Signs
Temp Pulse Resp BP Pulse Ox
37.5 C 78 11 124/77 98
07/22/23 04:00 07/22/23 08:40 07/22/23 08:40 07/22/23 05:00 07/22/23 08:40
Lab Results
07/22/23 05:09
07/22/23 05:09
PT 16.0 Sec (11.4-14.6) H 07/20/23 04:36
INR 1.30 07/20/23 04:36
APTT 79.9 Sec (23.4-35.0) H 07/22/23 06:28
Sodium 139 mmol/L (135-145) 07/22/23 05:09
Potassium 3.1 mmol/L (3.5-5.1) L 07/22/23 05:09
BUN 29 mg/dl (9-20) H 07/22/23 05:09
Glucose 123 mg/dl (70-99) H 07/22/23 05:09
Calcium 8.4 mg/dl (8.4-10.2) 07/22/23 05:09
Phosphorus 3.2 mg/dl (2.5-4.5) 07/22/23 05:09
Gnb-A-Kwkewazjmll Pept Cancelled 07/17/23 10:40
Patient Allergies
shellfish derived Allergy (Verified 07/17/23 11:10)
Unknown
Review of Systems
-
Unable to obtain full review of systems at this time due to: Patient Intubation
History Source: Patient
All other systems: Reviewed and negative
Physical Exam
-
General: No Apparent Distress, Intubated, Appears Stated Age and Restrained
Eyes: Round OU, [place] Conjunctivae and No Ptosis
HEENT: Anicteric and Moist Mucous Membranes
Neck: Full Range of Motion
Respiratory: No Dyspnea
Cardiac: No JVD
GI: Non-distended
Skin: Unremarkable
Extremities: No Clubbing, No Cyanosis and No Edema
Psych: Intact Judgement/Insight
Extended Neurological Exam
Mood & Affect: Mood Unremarkable and Affect Unremarkable
Attention Span & Concentration: Awake, Alert, Interactive, Closes Eyes after Stimulation and Severe Difficulty with 2 Step Request
Memory: Unable to Assess
Tremor: Hand Tremor Absent and Head Tremor Absent
Involuntary Movement: None
Speech: Unable to Assess
Cranial Nerve II: Left Eye: Pupillary Size Unremarkable and Visual [place] Grossly Intact
Cranial Nerve II: Right Eye: Pupillary Size Unremarkable and Visual [place] Grossly Intact
Cranial Nerves III, IV, : Extraocular Movement: Grossly Intact
Cranial Nerve VII: Facial Symmetry: Normal Facial Symmetry
Cranial Nerve VIII: Hearing: Unremarkable Hearing to Normal Conversational Volume
Cranial Nerves IX, X: Palate Movement: Unable to Assess
Muscle Strength, Overall: Spontaneously Moves (All extremities)
Muscle Bulk & Tone: Bulk Unremarkable and Tone Unremarkable
Pronator Drift: No Drift in Upper Extremities
Cold Sensation: Unable to Assess
Vibration Sensation: Unable to Assess
Touch Sensation: Unremarkable
Gait & Station: Unable to Assess
Data Reviewed
-
CT Head: Report Reviewed
EEG: Pending and Report Reviewed
Reviewed with: Physician, Nurse and Patient
Old Records: Summarized
[2023-07-22 09:55] LABS: B.E. 2.3 mmol/L; HCO3 26.5 mmol/L (21-28); O2 Saturation % 99.5 % (94-98); PCO2 39 mmHg (35-48); PO2 167 mmHg (83-108); pH 7.44 (7.35-7.45)
[2023-07-22 11:02] LABS: HDL Cholesterol 57 mg/dl; LDL Cholesterol, Calculated 127 mg/dl; Total Cholesterol 200 mg/dl (50-199); Triglyceride 81 mg/dl (10-149); Very Low Density Lipoprotein 16 mg/dl (0-30)
[2023-07-22] MEDS: HEPARIN 25000 UNITS/250 ML IV (13:11)
[2023-07-22 13:42] LABS: APTT 57.4 Sec (23.4-35.0)
--- NOTE | 2023-07-22 15:37 | PTCARENOTE ---
Patient received in AM with assessment as noted. Initially intubated without sedation and nodding appropriately to simple questions and following directions. 1 hr EEG done. After the EEG was completed and he was seen by , a CPAP 5, PS 10,
40% Fios SBT was started at 0830 with results of 0940 ABG [id number]%. aware and extubation ordered. Patient extubated to 4lnc at 1015 and subsequently weaned to 2lnc at 1400 with Sao2 maintained >95% through out. Strong cough
noted upon extubation. Initially his voice was nearly inaudible but while still soft has improved and is now audible. NIH score of 7 at 1200 with deficits noted for right sided weakness, slight loss of right sided sensation, ataxia and dysarthria.
Patient oriented to person and sometimes place. Affect calm but forgetful. Restraints d/c'd upon extubation. A-flutter on monitor. Afebrile. B/P's stable. Lungs slightly coarse through out. Sao2 97% on 2lnc. Bowel sounds noted. Osmolyte 1.2 infusing
via right nares Dobhoff and increased to goal rate of 65 ml/hr at 1600. Liquid brown stool draining via rectal trumpet. Kaur d/c'd at 1100. Patient has not voided since. Family into visit and updated to patient condition. Patient currently in bed
with family at bedside and call menendez in reach.
--- NOTE | 2023-07-22 16:21 | CM ---
CM following re: discharge planning.
Discussed in rounds, reviewed pt's chart, met with pt. pt's family at bedside. per rounds meeting, pt extubated today to 4L NC, continue supportive care.
PT and OT will evaluate the pt to determine a level of care at discharge.
D/C plan: uncertain at this time and will depend on pt's progress.
CM will follow with discharge plan updates as hospitalization progresses
--- NOTE | 2023-07-22 20:30 | PTCARENOTE ---
Resumed care of pt this evening. NIHSS performed at bedside along with day shift RN, Eleazar. NIHSS 5 for dysarthria, limb ataxia, and right sided sensory/sensation deprivation. Pt is able to follow commands but is confused and forgetful to place and
time. Pt is in A-flutter w/ pauses on the tele monitor. Pt has no edema and + pedal pulses. Pt tolerating 2L of O2 satting at 98% pulse ox. Pt has an occ. non productive moist cough. On auscultation pt lungs sound diminished at the bases but
otherwise clear. Pt tolerating tube feeds currently infusing at goal rate, placement verified by this RN. Abdomen is round with +BS. Rectal trumpet in place and is draining liquid brown stool. Skin is C/D/I.
[2023-07-22 20:58] LABS: APTT 58.8 Sec (23.4-35.0)
[2023-07-22] MEDS: MELATONIN 5 MG PO (22:18)
[2023-07-23] VITALS (26 sets, daily range): BP systolic 101–155; BP diastolic 42–133; PULSE 56–79; BMI 27.9
--- NOTE | 2023-07-23 | PTCARENOTE ---
Neurologic status unchanged from previous assessment.
[2023-07-23] MEDS: ZOSYN 50 IV ×4 (02:48→20:58)
--- NOTE | 2023-07-23 03:00 | PTCARENOTE ---
Pt removed dobhoff and left hand INT during state of confusion. Pt states 'I want to go home and see my .' Pt reoriented with help of pt's daughter who is at the bedside.
[2023-07-23 04:31] LABS: Hemoglobin 10.7 g/dL (13.0-18.0); Mean Corp Hgb Conc. 34.5 g/dL (33.0-37.0); Mean Corpuscular Hgb 32.5 pg (27.0-31.0); Mean Corpuscular Volume 94.2 fL (80.0-94.0); Mean Platelet Volume 10.6 fL (7.4-10.4); Platelet Count 111 10^3/uL (130-400); Red Blood Cell Count 3.29 10^6/uL (4.70-6.10); Red Cell Dist. Width 13.4 % (11.5-14.5); White Blood Cell Count 8.2 10^3/uL (4.8-10.8)
[2023-07-23 04:42] LABS: APTT 65.8 Sec (23.4-35.0)
[2023-07-23 04:52] LABS: Blood Urea Nitrogen 24 mg/dl (9-20); Calcium 8.5 mg/dl (8.4-10.2); Carbon Dioxide 28 mmol/L (22-30); Chloride 106 mmol/L (98-107); Estimated Creatinine Clearance 77 ml/min; Glucose 116 mg/dl (70-99); Phosphorus 2.7 mg/dl (2.5-4.5); Potassium 3.4 mmol/L (3.5-5.1); Sodium 141 mmol/L (135-145); Triglycerides 84 mg/dl (10-149); eGFR > 60.00
[2023-07-23] MEDS: KCL 100 IV (06:02)
--- NOTE | 2023-07-23 06:36 | W.PN.HOSP.TC ---
Today's Communication/Plan
-
.
Assessment / Plan
Assessment / Plan
Physical Exam
General: Awake, on nasal O2, no acute distress
HEENT: Normocephalic, Atraumatic, EOMI, MMM
Respiratory: no wheezes or rales.
Cardiac: Normal S1/S2,
GI: Soft, Nontender, Nondistended, Normal Bowel Sounds
Extremities: No Clubbing, Cyanosis, or Edema
Neuro: He followed simple commands. Forgetful and mildly confused.
Psych: no agitation
78-year-old male with a past medical history of coronary artery disease status post CABG 1992, status post PCI with stent placement x 2, and hyperlipidemia presents after having outside hospital V-fib arrest. Apparently patient was golfing, and had
a witnessed syncopal episode. Police found him to be in V-fib arrest, he was shocked. When EMS arrived, he was in PEA rhythm. He received CPR, epinephrine, with ROSC. Temporary subglottic airway was placed. En route to the hospital, he had
another episode of V-fib, and was defibrillated again. He received 2 more doses of epinephrine, ROSC was obtained. Patient was intubated in the ER, and currently on a fentanyl drip. TTM was began in the ER.
#V-fib arrest/ Out of hospital sudden cardiac arrest s/p Shock
No recurrent arrhythmias. On IV heparin. Plan for ischemic work up soon.
Echo w/ EF 31%, no urgent indication for catheterization
Records from [facility] received
Extubated 07/21
S/p dopamine drip, Levophed drip
Pulled out his Tube feeding
Speech consult.
Appreciate ICU doctor, cardiology, neurology help
#Cardiogenic shock
S/p dopamine drip, s/p Levophed drip
Off pressers now
# Aspiration event
Repeat chest x-ray no consolidation. No worsening hypoxia.
# Hypokalemia, replace
#CAD status post CABG 1992, PTCA 2011
Positive troponin as non-[place] myocardial injury from cardiac arrest /shocks
Records from [facility] reviewed, Echo:
Stress test: 'Refused stress test.'
c/w Rectal aspirin daily
# Atrial flutter with rate controlled.
Started on IV heparin 07/20. Monitor PTT
Rate controlled with carvedilol, will decrease dose as BP & HR tolerates. Now can not give with no access
# 3 mm subacute nonhemorrhagic cortical infarct at the medial aspect of the right parietal convexity
c/w aspirin
Started on IV heparin 07/20
[id number] around 4
Appreciate neurology help
#Hyperlipidemia
Intolerant of statins
#Leukocytosis, resolved
Chest x-ray shows possible aspiration, continue empiric Zosyn
#Metabolic acidosis
Lactic acid normalized
#Hyperglycemia
Hemoglobin A1c 5.5, Accu-Cheks every 6 hours, sliding scale insulin every 6 hours
#Hypokalemia
Repleted and resolved
#Mildly elevated LFTs
Trend
DVT prophylaxis� IV heparin
GGI prophylaxis- IV Protonix
Okay for cardioversion and defibrillation, but no CPR
Total time spent to see the patient on the floor, examine the patient, review data and lab results, discuss treatment plan with patient, consultants, family, nursing staff around 57 minutes.
Anticipated Discharge: > 48 hours
Subjective/Interval History
-
Date of Service: July 23, 2023
Awake, denied pain, he wanted to go home but daughter at bed side calming him
Night team: Pt pulled out his NG
Objective Data
-
Labs:
Laboratory Results
07/22/23 07/23/23 07/23/23
20:34 03:53 11:00
WBC 8.2
Hgb 10.7 L
Hct 31.0 L
Plt Count 111 L
APTT 58.8 H 65.8 H Pending
Sodium 141
Potassium 3.4 L
Chloride 106
Carbon Dioxide 28
BUN 24 H
Creatinine 0.8
Glucose 116 H
Calcium 8.5
Vital Signs:
Vital Signs
Temp Pulse Resp BP Pulse Ox
98.6 F 45 18 113/58 98
07/23/23 03:52 07/23/23 06:00 07/23/23 06:00 07/23/23 06:00 07/23/23 06:00
I&O
07/21/23 07/22/23 07/23/23
06:59 06:59 06:59
Intake Total 669.0 / 679.6 912.6 / 920.6 189 / 189
Output Total 2019 / 2059 2035.0 / 2035.0 1150 / 1150
Balance -1351.0 / -1380.4 -1122.4 / -1114.4 741 / 741
--- NOTE | 2023-07-23 07:24 | W.PN.CD ---
Today's Communication / Plan
-
Family discussing cardiac catheterization this morning.
Keep NPO.
Start dapagliflozin 10 mg daily.
Further GDMT post cath.
Impression / Plan
-
Impression/Plan: 78M with established CAD (CABG ' with subsequent PCIs) with resuscitated VF arrest (AED shock).
#Out of hospital cardiac arrest
-Acute.
-VF by report, treated with AED shock.
-Patient suffered PEA and a second VF arrest en route to hospital.
-TTM started on arrival to ICU, rewarmed starting on 07/19/2023.
-EKG post resuscitation shows AF with ST depressions, no elevations.
-NPO this morning in anticipation of possible cardiac catheterization.
-I had a thorough and thoughtful discussion regarding further invasive procedures with the patient and his family. The patient's current cognitive situation precludes him from fully comprehending his clinical situation, procedural risks/benefits.
I clarified that there may be a role for PCI if a culprit lesion can be identified and is amenable to revascularization (not an OAT trial lesion) and if no lesion is identified, we would consider secondary prevention ICD. We discussed patient
wishes in the absence of chest pain and his previous level of activity and if a second arrest should simply be accepted to avoid further cognitive decline.
-Family will discuss at bedside and render a decision.
#Troponin elevation
-Acute.
-Troponin peaked at 19.8.
#Neuro status/CVA
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
-The patient scored poorly on his cognitive testing.
-He is alert but clearly does not comprehend his situation.
-Defer to neuro.
#Atrial flutter
-Slow ventricular response.
-[id number] at least 4 (HF/low EF, age2, vascular disease).
-Heparin gtt.
#VDRF
-Acute.
-Piperacillin-tazobactam for possible aspiration.
-Management per pulmonary/CCM.
-Likely extubation if he passes SBT.
#CAD s/p CABG
-Chronic.
-We do not know anatomy. Most of his care is through [facility].
-Continue aspirin 81 mg daily.
#Ischemic cardiomyopathy
-Uncertain duration.
-LVEF 31% on DH echo.
-Start GDMT after cath, beginning with dapagliflozin. If BP tolerates, we will add metoprolol succinate.
#Mixed hyperlipidemia
-Chronic.
-Possible statin intolerance.
-Outside records show that he is on alirocumab 150 mg q2 weeks.
-Total cholesterol = 200, LDL = 127, HDL = 57, Triglycerides = 81.
Critical Care Time = 32 minutes.
Subjective/Interval History:
Patient extubated to 2LNC yesterday.
He remains confused at times.
Weight is down.
NIHSS remains 5.
DATA:
TTE, 07/17/2023:
CONCLUSIONS
Technically difficult study.
Severely reduced left ventricular systolic function. Left ventricular ejection
fraction is 31%.
Regional wall motion abnormalities consistent with CAD.
Severe hypokinesis of the apex and apical segments.
Inferolateral, anterior and anterolateral carlos moving best.
Mild to moderate mitral regurgitation.
Mild tricuspid regurgitation. Estimated pulmonary artery pressure of 36 mmHg.
No prior study available for comparison.
EEG, 07/17/2023:
LESS THAN 1 HOUR EEG REPORT
LESS THAN 1 HOUR EEG INTERPRETATION:
Moderately abnormal EEG for age due to diffuse bihemispheric slowing
CLINICAL CORRELATION:
This study was suggestive of mild diffuse cortical dysfunction without focal abnormality. No seizures were recorded.
Clinical correlation is advised.
Brain MRI, 07/20/2023:
IMPRESSION:
There is a 3 mm subacute nonhemorrhagic cortical infarct at the medial aspect of the right parietal convexity
There is mild cortical with mild nonspecific white matter changes as described above.
Physical Exam
Vital Signs/Labs
Vital Signs
Temp Pulse Resp BP Pulse Ox
37.0 C 45 18 113/58 98
07/23/23 03:52 07/23/23 06:00 07/23/23 06:00 07/23/23 06:00 07/23/23 06:00
07/21/23 07/22/23 07/23/23
11:59 11:59 11:59
Actual Weight 85.5 kg 88.2 kg 85.5 kg
07/23/23 03:53
07/23/23 03:53
PT 16.0 Sec (11.4-14.6) H 07/20/23 04:36
INR 1.30 07/20/23 04:36
APTT 65.8 Sec (23.4-35.0) H 07/23/23 03:53
Magnesium 2.2 mg/dl (1.6-2.3) 07/22/23 05:09
Triglycerides 84 mg/dl (10-149) 07/23/23 03:53
LDL Cholesterol, Calc 127 mg/dl 07/22/23 05:09
VLDL Cholesterol, Calc 16 mg/dl (0-30) 07/22/23 05:09
HDL Cholesterol 57 mg/dl 07/22/23 05:09
07/17/23 07/17/23
09:46 10:40
Eoh-D-Ngknvfxwzjs Pept 1210 Cancelled
Physical Exam
Constitutional: No acute distress and Comfortable
EENT: Anicteric and Moist mucous membranes
Cardiovascular: Rhythm & rate is regular, Pedal edema is absent, JVD pressure is normal, S1S2 is normal and Murmur/rub/gallop absent
Respiratory: Respiratory effort normal, Lungs clear to auscul., Wheeze Absent, Crackles Absent and Rhonchi Absent
GI: Soft, Distention absent, Flat, Non tender and Normal bowel sounds
Neuro/Psych: Alert and Oriented (Oriented to self, others.)
Data Reviewed
-
Date of Service: July 23, 2023
Medical Decision Making: Reviewed Test Results, Independent Historian Assessment, Test Interpretation and Review of Case with other Provider
EKG: Tracing Personally Visualized and interpreted and Report Reviewed by me
Echo: Tracing Personally Visualized and interpreted and Report Reviewed by me
X-Ray/CT/US/MRI/NUC/PET: Image Personally Visualized and interpreted and Report Reviewed by me
Labs: Labs Reviewed by me
--- NOTE | 2023-07-23 07:45 | PTCARENOTE ---
Assumed care of patient. Pt rec'd alert...conversive. NIHSS 6...see intervention. Pupils 3/brisk. TRACY's. Forgetful but able to follow commands. S1 S2 reg w/ aflutter on monitor. +PP. No edema. On 2L N/C...sats 99%...lungs clear but
diminished. Chronic clearing of throat...unable to expectorate. Oral care done. Abdomen round...hyper BS. Rectal trumpet draining liquid brown stool. No void this am. Will monitor w/ bladder scanning. Skin pale in color. Abrasion noted on
chest...lidocaine patch applied. Right DL PICC w/ heparin gtt infusing. 20P LAC capped. VS documented. Call menendez within reach. Speech/PT/OT consulted. Will continue to monitor closely.
[2023-07-23] MEDS: LIDOCAINE 4% PATCH 1 PATCH TOPICAL (07:48)
[2023-07-23] MEDS: NSS (PRESERVATIVE FREE) 10 ML IV (07:53)
[2023-07-23] MEDS: PROTONIX IV 40 MG IV (07:53)
--- NOTE | 2023-07-23 08:15 | W.PN.NEURO.1 ---
Today's Communication / Plan
-
-From neurologic perspective and the small stroke, I don't feel he needs both aspirin in addition to anticoagulation. Certainly it is acceptable to be on both if felt necessary for cardiac reasons given atrial fibrillation, history of CAD and
upcoming catheterization
-Neurologic checks
-Speech therapy
-Minimize sedating medications as able
-Cardiac telemetry
-Tentatively planned for cardiac catheterization
Will follow as needed call with questions and concerns
Neuro Assessment/Plan
Assessment
78-year-old male with a past med history of coronary artery disease CABG and coronary stent presented hospital after 2 V-fib cardiac arrest with shocks and ROSC obtained outside the hospital. He underwent targeted temperature monitoring.
EEG showed diffuse slowing no seizure activity was not a malignant EEG pattern, twice
CT head noncontrast on admission did not not show early changes of anoxic brain injury or edema, no chronic infarcts or acute findings
MRI did not show evidence of anoxic brain injury, very small right parietal ischemic stroke
Patient began to awake and obey commands 07/21, was able to be extubated
Exam 07/22 reassuring mental status
Assessment: Good prognosis
Ischemic stroke of the right parietal lobe is quite small and expect good recovery from this, etiology is most likely from cardiac arrest or cardiac embolism
Subjective/Objective
Subjective Data
Date of Service: July 23, 2023
No acute events, extubated, conversational, last night didn't sleep much and really wanted to go home, currently no headache or chest pain
Objective Data
Vital Signs
Temp Pulse Resp BP Pulse Ox
98.9 F 45 18 113/58 98
07/23/23 07:32 07/23/23 06:00 07/23/23 06:00 07/23/23 06:00 07/23/23 06:00
Lab Results
07/23/23 03:53
07/23/23 03:53
PT 16.0 Sec (11.4-14.6) H 07/20/23 04:36
INR 1.30 07/20/23 04:36
APTT 65.8 Sec (23.4-35.0) H 07/23/23 03:53
Sodium 141 mmol/L (135-145) 07/23/23 03:53
Potassium 3.4 mmol/L (3.5-5.1) L 07/23/23 03:53
BUN 24 mg/dl (9-20) H 07/23/23 03:53
Glucose 116 mg/dl (70-99) H 07/23/23 03:53
Calcium 8.5 mg/dl (8.4-10.2) 07/23/23 03:53
Phosphorus 2.7 mg/dl (2.5-4.5) 07/23/23 03:53
Rtv-C-Cfassjhvpnf Pept Cancelled 07/17/23 10:40
LDL Cholesterol, Calc 127 mg/dl 07/22/23 05:09
Patient Allergies
shellfish derived Allergy (Verified 07/17/23 11:10)
Unknown
LDL Level: >70, statin ordered
Review of Systems
-
History Source: Patient
All other systems: Reviewed and negative
Constitutional: No Symptoms
EENT: No Symptoms Reported
Respiratory: No Symptoms
Cardiac: No Symptoms
Abdomen/GI: No Symptoms
Genitourinary: No Symptoms
Musculoskeletal: No Symptoms
Skin: No Symptoms
Neuro: Weakness; Negative Headache or Speech Problem
Endocrine: No Symptoms
Hematologic / Lymphatic: No Symptoms
Allergy / Immunology: No Symptoms
Physical Exam
-
General: Comfortable
Eyes: No Ptosis
HEENT: Normocephalic
Neck: No Bruits Bilaterally
Respiratory: Clear to Auscultation
Cardiac: Regular Rhythm
GI: Normal Bowel Sounds
Skin: Unremarkable
Extremities: No Clubbing
Psych: Unremarkable
Extended Neurological Exam
Mood & Affect: Mood Unremarkable and Affect Unremarkable
Attention Span & Concentration: Awake, Alert and Interactive
Memory: Unremarkable
Tremor: Hand Tremor Absent
Involuntary Movement: None
Speech: Quality Unremarkable and Quantity Unremarkable; Negative Expressive Aphasia or Receptive Aphasia
Cranial Nerve II: Left Eye: Pupillary Reactivity Unremarkable, Pupillary Size Unremarkable and Visual [place] Intact
Cranial Nerve II: Right Eye: Pupillary Reactivity Unremarkable, Pupillary Size Unremarkable and Visual [place] Intact
Cranial Nerves III, IV, : Extraocular Movement: Extraocular Movement Full in all Directions
Cranial Nerve VII: Facial Symmetry: Normal Facial Symmetry
Muscle Strength, Overall: Other (Shoulder arm flexion 5/5 bilaterally)
Pronator Drift: No Drift in Upper Extremities
Deep Tendon Reflexes: Trace Throughout
Coordination: Oapcqa-krmz-tsjhib Testing Unremarkable
Data Reviewed
-
CT Head: Report Reviewed and Image Reviewed
MRI Head: Report Reviewed and Image Reviewed
EEG: Report Reviewed
--- NOTE | 2023-07-23 08:30 | PTCARENOTE ---
Pt easily distracted and impulsive. Bed alarm on. Being evaluated by speech therapy.
--- NOTE | 2023-07-23 08:30 | PTOTSP ---
Speech Language Pathology
Pt seen for cognitive-linguistic evaluation via the [place] Cognitive Assessment (MOCA), version 8.1. Pt with a score of 5/30 where normal range is 26-30. Pt with severe cognitive deficits. Pt distractible and impulsive with decreased awareness
of deficits. Pt with the following scores on the following subtests: visuospatial/executive= 0/5, naming= 3/3, attention= 0/6, language= 0/3, abstraction= 1/2, delayed recall= 0/5, orientation= 1/6.
Pt also seen for clinical bedside swallow evaluation. P.O. trials of puree, regular solids, and thin liquids provided. Impulsive rate of intake noted. Adequate mastication, bolus formation, and A-P transit noted with no oral residue. No overt
signs of aspiration.
Recommend:
(1) Regular solids/thin liquids
(2) General aspiration precautions
(3) Meds as tolerated
(4) Acute rehab at discharge
(5) [employer] MA[employer]GER to continue to follow to ensure diet tolerance and for cognitive therapy
--- NOTE | 2023-07-23 09:01 | W.PN.INTV ---
Today's Communication / Plan
Recommendations
s/p therapeutic hypothermia
Extubated yesterday to nasal cannula
Neuro consulted - recs appreciated
Replete K>4, Mg>2
MAP>65
Ischemic eval with LHC and ICD for secondary prevention per cardiology - this is recommended given he is now extubated and following commands
Consult PT/OT and PLUSH DRESSER
Patient doing well, on room air breathing comfortably, passed PLUSH DRESSER for regular solids/thin liquids, and needs to work with PT OT. He will obtain cardiac catheterization today + ICD placement. Assuming that there are no complications from the heart
catheterization today then I will downgrade to telemetry versus IVU.
Once downgraded then we will sign off. Please reconsult us if there are any additional questions or concerns and thank you for allowing us to be involved in the care of this patient.
Assessment
-
Patient is a 78-year-old male with previous history of CAD, presenting to ER after witnessed syncopal episode while playing golf this morning. 911 called, police arrived and patient was reportedly in V-fib arrest, AED used which defibrillated.
EMS arrived shortly after and patient was found to be in PEA rhythm. CPR was initiated and patient was given 2 doses of epinephrine with return of spontaneous circulation. He was attempted to be intubated prehospital but airway could not be
established. Temporary subglottic airway was placed and patient was bagged on the way to the hospital. He unfortunately suffered another cardiac arrest en route. V-fib was noted and patient was defibrillated again with 2 more doses of epinephrine.
ROSC was obtained at ER evaluation. Intubated in ER and admitted to ICU following initiation of TTM.
Impression:
Acute cardiac arrest/VF s/p shock x 2 and CPR, PEA after 07/17/23 s/p therapeutic hypothermia (reached normothermic temperature on 07/19/2023)
Acute respiratory failure with hypoxia on mechanical ventilation (07/16)--> extubated 07/22/2023
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
Shock on vasopressors - likely due to sedation - shock state now resolved
Bradycardia - now resolved - was due to therapeutic hypothermia, he required dopamine, but now he is off dopamine and off levophed
Aspiration PNA with Klebsiella aerogenes seen on sputum culture
Mild leukocytosis - resolved
Metabolic acidosis - resolved
Hyperglycemia - resolved
Elevated LFTs � resolved
Elevated troponin - likely due to ACS in setting of CPR (EKG with yessenia-inferolateral ST-depressions with frequent PVCs) and TTE with apex + apical segment hypokinesis � peaked at 19.8 on 07/17/2023
Acute HFrEF with stage III diastolic dysfunction
Mild-moderate MR with mild pHTN (PASP: 36mmHg)
Atrial fibrillation/flutter - new onset
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
CAD status post CABG
Hyperlipidemia
Plan
Since being rewarmed he had awoken, opened eyes but was not consistently following commands
On 07/21 he made a large positive stride in the AM with following of commands, lifting his head up off the pillow and he was extubated to nasal cannula
He is following commands although he does have some delayed to his motor movements and has cognitive impairment
Neurology consulted - recs appreciated
MRI brain negative for anoxic brain injury and shows small cortical infarct in the right parietal lobe - maintain normotension; neuro on board with recs appreciated
Initial CT Head neg
Hemodynamically stable, not requiring pressors.
Cardiac history reviewed--CAD s/p CAB history, follows outpatient cards
Trops elevated - peaked at 19.8 on 07/17/2023 � no longer need to check given it's been trending downwards
VF history
ECHO reviewed
Maintain HR<110 and >50
Cards following
Heparin gtt
He will need an ischemic eval with [facility] now that he has woken up and was extubated and is following commands --> Dr. Alfaro saw the family today alongside with me, and pt going for [facility] today with ICD placement for secondary prevention
Prior history of lung disease: none, lifelong nonmoker
Titrate nasal cannula flow rate to maintain sats > 94%
CXR/CT reviewed indicating edema vs aspiration, Zosyn added - complete 7 days total assuming he remains afebrile for 48 hrs prior to doing so
Sputum culture growing Klebsiella aerogenes with inducible AMP-C. Continue Zosyn; blood Cx shows NGTD (from 07/18/2023)
NPO - will do swallow study probably tomorrow as he is still weak and slow to respond
Keep NGT in place for nutrition and PO access
Initial OGT was placed with red output, traumatic intubation --> trend Hb and continue PPI
[employer] recommendations reviewed --> started TF on 07/18
Aspiration precautions, HOB > 30 degrees
GI prophylaxis was indicated due to intubation, however now that he is extubated, as long as his Hb remained stable then I will DC --> it slightly dropped today 10.7 so continue for now
Creat at baseline, no history of renal disease
Void trials
Follow urine output --> now that extubated, ok to remove auguste --> he then developed acute urinary retention, may need another auguste if straight cath'd x3
Replete electrolytes as needed w/ K>4, Mg>2
Possible aspiration PNA
Started on empiric antibiotics with Zosyn (started 07/16) - complete a 7 day course assuming he remains afebrile for 48 hrs preceding to stop Abx
Follow fever trend, WBC count
CBC stable, no signs of bleeding or coagulopathy, although his platelet count is <150, and this needs to continue to be trended; transfuse if needed to keep >20k
Possible GIB, on heparin gtt due to his new-onset A-fib
DVT prophylaxis as assessed based on risk, including mechanical SCDs- continue hep gtt
Can transfuse if indicated for Hb <7, plt < 20k
INR WNL
No prior h/o diabetes or thyroid disease
Goal BG 140-180mg/dL
Dr. Andujar had spoken with family at bedside regarding TTM, they are aware of what to expect. They confirm he should be DNR. They do not want to cause further brain injury. Would accept cardioversion or defibrillation if needed but no CPR. Updated
in chart.
I have been updating the daughters x2 today at bedside and I answered all her questions.
Patient doing well, on room air breathing comfortably, passed PLUSH DRESSER for regular solids/thin liquids, and needs to work with PT OT. He will obtain cardiac catheterization today + ICD placement. Assuming that there are no complications from the heart
catheterization today then I will downgrade to telemetry versus IVU.
Once downgraded then we will sign off. Please reconsult us if there are any additional questions or concerns and thank you for allowing us to be involved in the care of this patient.
Diagnostic Data
CXR 07-21-2023: No acute cardiopulmonary process. Improved pulmonary edema.
CXR 07-20-2023: Mild CHF and bibasilar atelectasis, progressed.
CXR 07-19-2023: No acute cardiopulmonary process.
Chest X-Ray: 07/17/23- 1. Endotracheal tube with tip approximately 5.5 cm above the thuy.
2. Low lung volumes. Bilateral interstitial and airspace opacities as above. Aspiration is a differential consideration. Interstitial and mild alveolar edema is also a consideration.
CT Scan: Neck- 1. No acute fracture or malalignment.
2. Multilevel mild to moderate degenerative changes thoracic spine.
3. Post endotracheal tube placement. Abnormal increased interstitial and airspace opacity in the upper lungs. Aspiration is a consideration. Interstitial and alveolar edema is possible.
HEAD - No acute intracranial abnormality identified.
Brain MRI 07-20-2023: There is a 3 mm subacute nonhemorrhagic cortical infarct at the medial aspect of the right parietal convexity
There is mild cortical with mild nonspecific white matter changes
Echo: 07-17-2023
Technically difficult study.
Severely reduced left ventricular systolic function. Left ventricular ejection
fraction is 31%.
Regional wall motion abnormalities (below) consistent with CAD.
Mild to moderate mitral regurgitation.
Mild tricuspid regurgitation. Estimated pulmonary artery pressure of 36 mmHg.
No prior study available for comparison.
Reports and relevant images were personally reviewed.
Total time spent today was 55 minutes for this encounter. Time includes reviewing laboratory test/imaging results, reviewing pertinent medical records, obtaining and reviewing medical history, performing an appropriate exam, ordering medications,
tests and procedures. Time also includes documentation of this encounter, coordinating patient care and communicating with other healthcare professionals. Total time does not include separately billed tests performed on this date of service.
Subjective Dataa
Subjective Data
Date of Service:
Date of Service: July 23, 2023
Chief Complaint: Sql Bi Developer Follow Up
Subjective:
Still followiing commands but slow to respond. NIHSS is 6. Having acute urinary retention, straight cath'd multiple times since yesterday. He is on 2L/min, SpO2 99%, PLUSH DRESSER cleared him for liquids. BP 119/60 and HR 64. He is in A-flutter but rate
is controlled. I updated daughters at bedside and answered all the questions. He is awaiting to go to cath today for ICD placement + C.
Review of Systems
General: Other (Negative unless mentioned above)
Objective Data
Data Reviewed
Vital Signs / I&O / Oxygen:
Vital Signs
Temp Pulse Resp BP Pulse Ox
98.9 F 64 17 119/60 96
07/23/23 07:32 07/23/23 08:00 07/23/23 08:00 07/23/23 08:00 07/23/23 08:00
Intake and Output
07/22/23 07/23/23 07/24/23
06:59 06:59 06:59
Intake Total 912.6 / 920.6 1891 / 1904
Output Total 2035.0 / 2035.0 1150 / 1150
Balance -1122.4 / -1114.4 741 / 754
SaO2 [CPAP] 100
SaO2 [A/C] 98
SaO2 96
Nasal Cannula flow liters per 2
minute
Physical Exam
General: Comfortable and Sweats (negative)
HEENT: Normocephalic and Anicteric
Cardiovascular: Irregular Rhythm, Peripheral Edema (negative) and Other (normal rate)
Respiratory: Wheeze (negative), Crackles (Bibasilar), Rhonchi (negative) and Non-Labored Respirations
GI: Soft, Non Distended, Non Tender and Normal Bowel Sounds
Neurology: Awake, Alert, Oriented, Tremors (negative) and Other (Following commands; pupils +2 bilaterally and brisk; sql bi developer strength is 5/5, bilateral dorsi/plantarflexion is 5/5)
Skin: Warm and Dry
Labs/Micro/Reports
Lab Data
07/23/23 03:53
07/23/23 03:53
Laboratory Results
07/22/23 07/22/23 07/22/23
09:37 13:21 20:34
APTT 57.4 H 58.8 H
pH 7.44
pCO2 39
pO2 167 H
HCO3 26.5
O2 Delivery Level
07/23/23
03:53
APTT 65.8 H
pH
pCO2
pO2
HCO3
O2 Delivery Level
Microbiology
07/18/23 13:50 Blood/Venous Blood Culture - Preliminary
No Growth in 4 days- Final report to follow
07/20/23 08:50 Tracheal Aspirate Respiratory Culture - Final
Klebsiella aerogenes
07/20/23 08:50 Tracheal Aspirate Gram Stain - Final
--- NOTE | 2023-07-23 10:00 | PTCARENOTE ---
Assist x 2 to get OOB to chair. Able to stand...unsteady gait w/ ambulation. PT/OT ordered. Chair alarm on. Seen by speech therapy this am. Diet advanced to regular w/ thin liquids.
[2023-07-23] MEDS: LOW STRENGTH ASPIRIN 81 MG PO (10:03)
[2023-07-23] MEDS: FLOMAX 0.400000000000000022 MG PO (10:28)
[2023-07-23 11:01] LABS: APTT 63.2 Sec (23.4-35.0)
--- NOTE | 2023-07-23 11:55 | PTCARENOTE ---
Pt currently on R/A...sats 97%. No major changes in physical assessment. Family at bedside. Updated by and . Lunch to be ordered by family. VS documented. Will continue to monitor closely.
[2023-07-23] MEDS: HEPARIN 25000 UNITS/250 ML IV (12:12)
--- NOTE | 2023-07-23 12:20 | CM ---
CM following re: discharge planning.
Discussed in rounds, reviewed pt's chart, met with pt and 2 pt's daughters and pt's spouse at bedside. Per Rounds meeting, pt has been improving, requires 4L NC at bedside.
PT and OT evaluations noted - acute rehab level of care recommended. CM discussed it with pt and his family, they expressed their agreement and [facility] recommended. A referral to [facility] acute [facility] made.
PM&R consult requested.
Pt's daughter stated that both pt and his spouse eventually will go to [facility]. Pt's daughter stated she will try to get her parents to [facility] after the completion of acute rehab at [facility].
D/c plan: [facility] acute rehab when pt is medically stable.
CM will follow with discharge plan updates as hospitalization progresses
--- NOTE | 2023-07-23 12:45 | PTCARENOTE ---
at bedside to have family consent to cardiac cath. Aware that pt had two bites of food. NPO until after cath. Family fully updated. Will continue to monitor.
--- NOTE | 2023-07-23 13:40 | PTCARENOTE ---
Report called to Claritza in track repair laborer. Pt to be transferred to track repair laborer shortly.
[2023-07-23 14:59] LABS: ACT-LR - POC 297 Seconds (116-155)
[2023-07-23 15:37] LABS: ACT-LR - POC 242 Seconds (116-155)
--- NOTE | 2023-07-23 15:43 | ITS.CL.ANGIO ---
[facility] - Angioplasty
Angioplasty
Procedure Report:
CARDIAC CATHETERIZATION REPORT
Date of Procedure: 07/23/2023
Referring: Victor Manuel Arthur M.D.
INDICATION: [id number] cardiac arrest, known coronary artery disease status post CABG.
PROCEDURE:
1. Left heart catheterization.
2. Coronary angiography.
3. Bypass angiography.
4. Successful IVUS guided PCI of the ostial and proximal left main coronary artery.
ACCESS:
6 Libyan right common femoral artery using modified Seldinger technique with a micropuncture kit under ultrasound guidance.
CATHETERS:
1. 5 Libyan JL 4.
2. 5 Libyan JR4.
3. 5 Libyan BUBBA.
4. 6 Libyan JL 4 guiding catheter.
HEMODYNAMIC DATA
Weight (kg): 85.3
AO (s/d/x, mmHg): 145/75/24
LV (s/x mmHg): 147/25
LEFT VENTRICULOGRAPHY: Not performed.
CORONARY ANGIOGRAPHY
Dominance: Right.
Left Main: Normal size, bifurcating vessel. Patent stents are present throughout the length of the left main coronary artery and extend into the circumflex artery (overlapping Xience 3.0 x 8 DOMINIQUE, 2.5 x 28 DOMINIQUE). There is a severe, 80-90%
in-stent restenosis lesion in the ostial/proximal left main coronary stent.
LAD: Normal size vessel giving rise to at least 1 diagonal. The vessel is chronically totally occluded at its origin. The mid and distal LAD is supplied by patent HOWARD graft.
Ramus: Congenitally absent.
Circumflex: Normal size, nondominant vessel giving rise to 2 obtuse marginals. OM1 is a small, vestigial vessel. OM 2 is a more substantial vessel supplying much of the inferolateral wall. Patent stents are observed in the left circumflex
extending from the left main into the body of the vessel (overlapping Xience 3.0 x 8, 2.5 x 28 DOMINIQUE). These further extend into the proximal margin of OM 2 (Xience Rajani 2.25 x 28 DOMINIQUE, 12/13/2011, [facility]). There are minor luminal
irregularities.
RCA: Dominant vessel. The vessel is flush occluded at its origin. The vessel reconstitutes in its distal margin, immediately proximal to the origin of the RPDA. The RPDA and distal RCA are supplied by collaterals from the LAD.
BYPASS GRAFT ANGIOGRAPHY
HOWARD to LAD: Large size graft with end-to-side anastomosis to the mid LAD. The graft is extremely tortuous. There is no evidence of stenosis or graft degeneration.
SVG to D1: Chronically totally occluded at its origin.
SVG to OM 2: Chronically totally occluded at its origin.
SVG to dRCA: Chronically totally occluded at its origin.
INTERVENTION(S)
1. Successful IVUS guided PCI of the 80-90% in-stent restenosis lesions in the proximal/ostial left main coronary artery (Xience Skypoint 3.25 x 18 DOMINIQUE, postdilated with a 3.25 NC balloon) with reduction in stenosis to 0%, maintaining EVERETT-3 flow.
Narrative:
The decision was made to proceed with percutaneous coronary intervention. The diagnostic catheter was noted to dampen when engaged in left main coronary artery, confirming severe proximal/ostial stenosis. The diagnostic catheter was removed over a
wire and a 6Fr JL 4 guiding catheter with sideholes was advanced to the aortic root and seated in the left main coronary artery, with some difficulty. Additional heparin was given and a Power Turn Flex wire was advanced into the circumflex, again
with some difficulty. At this point, I was concerned that the wire was underneath the stent strut. The wire was pulled back and then redirected, this time passing easily down into the circumflex confirming that the prior placement was suboptimal.
The 80-90% ostial/proximal left main coronary artery lesions were predilated with a 2.0 x 12 semi-compliant balloon to 14 ailyn.
The decision was made to perform intracoronary imaging. An IVUS catheter was advanced through the guiding catheter and into the ostium of the artery. Ring down was performed once the imaging crystal was no longer inside of the guiding catheter. The
IVUS catheter was advanced into the proximal circumflex. Intravascular ultrasound was performed in a retrograde fashion using a slow pullback. Intracoronary imaging demonstrated good stent apposition and expansion in the proximal circumflex and
distal left main. There was severe in-stent restenosis within the mid and proximal left main coronary artery consistent with neointimal hyperplasia. We performed coronary artery measurements.
The IVUS catheter was withdrawn and a 3.0 x 12 noncompliant balloon was advanced. The left main coronary artery was predilated again to 14 ailyn with excellent noncompliant balloon expansion. The noncompliant balloon was withdrawn. At this time, a
BMW wire was advanced into the guide and seated in the coronary cusp as a bumper wire. The patient, who had been somewhat restless throughout the entire case began moving around excessively on the table. He moved his legs up and down at the knees
which dislodged the catheter with complete disengagement and removal of the wire from the coronary. All interventional equipment was withdrawn and we spent the next several minutes reengaging the left main coronary artery, again with some
difficulty. The power turn flex wire was readvanced, this time passing through the stent strut again. While keeping this wire in place, the BMW wire was advanced through the guide and into the distal circumflex through the true lumen of the prior
stent. The power turn flex wire was withdrawn.
A Xience Skypoint 3.25 x 18 drug-eluting stent was advanced. Meticulous care was taken while positioning the stent, ensuring that the entire left main lesion was covered including the ostium. The stent was deployed at 14 atmospheres. The stent
balloon was removed. A 3.25 x 12 noncompliant balloon was advanced into the stent and the stent was postdilated to 14 atmospheres in the distal segment and 16 ailyn in the proximal margin/ostium. Angiography was performed in orthogonal views,
confirming good stent expansion and an excellent angiographic result. The coronary wire was withdrawn and the guide was disengaged from the artery. The catheter was removed over a standard J-wire.
Closure Device: 6 Libyan Angio-Seal.
Radiation (mGy): 1951.78
DAP (cm2.Gy): 151.30
Fluoroscopy time (minutes): 27.1
Sedation time (minutes): 75
CONCLUSIONS
1. Right dominant circulation with chronic total occlusion of the ostial RCA, ostial LAD and diagonal status post prior coronary artery bypass grafting surgery (patent HOWARD to LAD, occluded SVG to diagonal, occluded SVG to OM, occluded SVG to dRCA)
and prior atherectomy and PCI (Xience Rajani 2.25 x 28 DOMINIQUE to the distal circumflex into the OM, 2.5 x 28 Xience Alpine from the left main coronary artery into the circumflex, overlapping with the Rajani stent, and a Xience 3.0 x 8 DOMINIQUE at the ostium of
the left main coronary artery) with patent stents in the circumflex/OM but new, 80-90% in-stent restenosis of the ostial/proximal left main coronary artery, status post successful IVUS guided PCI (Xience Skypoint 3.25 x 18 DOMINIQUE, postdilated with a
3.25 NC balloon) with reduction in stenosis to 0%, maintaining EVERETT-3 flow.
2. Severely elevated filling pressures (LVEDP = 25 mmHg at 85.3 kg).
RECOMMENDATIONS:
1. Expectant management after cardiac catheterization via right common femoral approach.
2. Limited weight bearing for one week.
3. Antithrombotic therapy with clopidogrel and apixaban.
4. Aggressive secondary prevention with PCSK9 inhibitors (previously statin intolerant). Goal LDL <55.
5. Guideline directed medical therapy as hemodynamics will tolerate.
6. Cognitive therapy to assist with recovery after out of hospital cardiac arrest.
Copy to: Victor Manuel Arthur M.D., Louis Mueller M.D.
Yusuf Alfaro, DO, FACC, FACP
--- NOTE | 2023-07-23 18:11 | PTCARENOTE ---
1600 back from laboratory geneticist, report/handoff at bedside, R groin dry and intact, good distal pulses. 12 lead obtained. bladder scanned and straight cath per protocol. family bedside, Dr. Alfaro present in room to discuss with family and 1 member on
speakerphone, diagram on white board, questions answered. pt assessments as noted per MD orders, q15 min checks as per EMR. forgetful.
--- NOTE | 2023-07-23 19:17 | PTCARENOTE ---
off activity restrictions, pulled up, small smear BM, family present, awaiting IVU bed. no pain.
[2023-07-23] MEDS: COREG 12.5 MG PO (20:58)
[2023-07-24] VITALS (21 sets, daily range): BP systolic 98–146; BP diastolic 60–99; PULSE 79–80; O2SAT 98
[2023-07-24] MEDS: ZOSYN 50 IV (02:35)
--- NOTE | 2023-07-24 05:44 | VATNOTE ---
CALLED BY PCN THAT PT HAD REMOVED PICC. TCL OF 40CM RECOVERED. NO BLEEDING NOTED. PERIPHERAL SITE ESTABLISED DOCUMENTED.
--- NOTE | 2023-07-24 06:16 | W.PN.HOSP.TC ---
Today's Communication/Plan
-
Patient pulled out Picc line last night.
Assessment / Plan
Assessment / Plan
Physical Exam
General: Awake, on nasal O2, no acute distress
HEENT: Normocephalic, Atraumatic, EOMI, MMM
Respiratory: no wheezes or rales.
Cardiac: Normal S1/S2,
GI: Soft, Nontender, Nondistended, Normal Bowel Sounds
Extremities: No Clubbing, Cyanosis, or Edema
Neuro: He followed simple commands. Forgetful and mildly confused.
Psych: no agitation this morning
78-year-old male with a past medical history of coronary artery disease status post CABG 1992, status post PCI with stent placement x 2, and hyperlipidemia presents after having outside hospital V-fib arrest. Apparently patient was golfing, and had
a witnessed syncopal episode. Police found him to be in V-fib arrest, he was shocked. When EMS arrived, he was in PEA rhythm. He received CPR, epinephrine, with ROSC. Temporary subglottic airway was placed. En route to the hospital, he had
another episode of V-fib, and was defibrillated again. He received 2 more doses of epinephrine, ROSC was obtained. Patient was intubated in the ER, and currently on a fentanyl drip. TTM was began in the ER.
#V-fib arrest/ Out of hospital sudden cardiac arrest
No recurrent arrhythmias.
s/p IV heparin.
Left Cardiac catheterization on07/22, status post successful stenting of proximal/ostial left main coronary artery by Dr Alfaro, no complications reported. on Plavix.
Echo w/ EF 31%,
Records from [facility]
Extubated 07/21
S/p dopamine drip, Levophed drip
Pulled out his Tube feeding and last night he pulled his pic line
Speech consulted, ok for regular diet.
Appreciate ICU doctor, cardiology, neurology help
#Cardiogenic shock
S/p dopamine drip, s/p Levophed drip
Off pressers now
#Acute hypoxic respiratory failure due to cardiac arrest, resolved. Extubated 07/21, on room air now.
Repeat chest x-ray no consolidation, n acute cardiopulmonary process. No worsening hypoxia.
# Hypokalemia, replace
# Confusion, likely combination of mild anoxic encephalopathy post cardiac arrest and stroke
c/w rehab.
#CAD status post CABG 1992, PTCA 2011
Positive troponin as NSTEMI and non-NC myocardial injury from cardiac arrest /shocks. Left Cardiac catheterization on07/22, status post successful stenting of proximal/ostial left main coronary artery by Dr Alfaro, no complications reported. on
Plavix.
Records from [place] reviewed, Echo: Stress test: 'Refused stress test.'
c/w Plavix
# Atrial flutter with rate controlled.
S/p IV heparin, no Eliquis. c/w BB.
# 3 mm subacute nonhemorrhagic cortical infarct at the medial aspect of the right parietal convexity
c/w Eliquis.
[id number] around 4
d/w Dr Lal
PT/OT.
Appreciate neurology help
#Hyperlipidemia
Intolerant of statins
#Leukocytosis, resolved
Chest x-ray shows possible aspiration, finished empiric Zosyn
# Thrombocytopenia, resolving
#Metabolic acidosis
Lactic acid normalized
#Hyperglycemia
Hemoglobin A1c 5.5, Not diabetic.
#Mildly elevated LFTs
DVT prophylaxis� Eliquis.
GGI prophylaxis- Protonix
Okay for cardioversion and defibrillation, but no CPR
Total time spent to see the patient on the floor, examine the patient, review data and lab results, discuss treatment plan with patient, consultants, family, nursing staff around 57 minutes.
Anticipated Discharge: > 48 hours
Subjective/Interval History
-
Date of Service: July 24, 2023
No chest pain or sob
Objective Data
-
Labs:
Laboratory Results
07/23/23 07/24/23
19:45 06:11
WBC Pending
Hgb Pending
Hct Pending
Plt Count Pending
APTT Cancelled
Sodium Pending
Potassium Pending
Chloride Pending
Carbon Dioxide Pending
BUN Pending
Creatinine Pending
Glucose Pending
Calcium Pending
Vital Signs:
Vital Signs
Temp Pulse Resp BP Pulse Ox
98.4 F 80 20 108/98 94
07/24/23 06:13 07/24/23 06:00 07/24/23 06:00 07/24/23 06:00 07/24/23 06:00
I&O
07/22/23 07/23/23 07/24/23
06:59 06:59 06:59
Intake Total 912.6 / 920.6 1891 / 1904 1125 / 1125
Output Total 2035.0 / 2035.0 1150 / 1150 550 / 550
Balance -1122.4 / -1114.4 741 / 754 575 / 575
[2023-07-24 06:38] LABS: Hemoglobin 11.3 g/dL (13.0-18.0); Mean Corp Hgb Conc. 34.2 g/dL (33.0-37.0); Mean Corpuscular Hgb 32.5 pg (27.0-31.0); Mean Corpuscular Volume 94.8 fL (80.0-94.0); Mean Platelet Volume 10.3 fL (7.4-10.4); Platelet Count 139 10^3/uL (130-400); Red Blood Cell Count 3.48 10^6/uL (4.70-6.10); Red Cell Dist. Width 13.3 % (11.5-14.5); White Blood Cell Count 8.3 10^3/uL (4.8-10.8)
[2023-07-24 07:01] LABS: Blood Urea Nitrogen 20 mg/dl (9-20); Calcium 8.6 mg/dl (8.4-10.2); Carbon Dioxide 25 mmol/L (22-30); Chloride 107 mmol/L (98-107); Estimated Creatinine Clearance 77 ml/min; Glucose 106 mg/dl (70-99); HDL Cholesterol 42 mg/dl; LDL Cholesterol, Calculated 138 mg/dl; Potassium 3.7 mmol/L (3.5-5.1); Sodium 140 mmol/L (135-145); Total Cholesterol 198 mg/dl (50-199); Triglyceride 94 mg/dl (10-149); Very Low Density Lipoprotein 18 mg/dl (0-30); eGFR > 60.00
--- NOTE | 2023-07-24 07:39 | W.PN.CD ---
Today's Communication / Plan
-
Start dapagliflozin 10 mg daily.
Start sacubatril/valsartan 24/26 mg BID this morning.
Monitor renal function/BP.
Discharge planning (acute rehab).
Serious consideration needs to be given to skilled nursing planning given cognitive insult and spouse with mild cognitive impairment.
Impression / Plan
-
Impression/Plan: 78M with established CAD (CABG with subsequent PCIs) with resuscitated VF arrest (AED shock).
#Out of hospital cardiac arrest/NSTEMI
-Acute.
-VF by report, treated with AED shock.
-Patient suffered PEA and a second VF arrest en route to hospital.
-TTM started on arrival to ICU, rewarmed starting on 07/19/2023.
-Troponin peaked at 19.
-EKG post resuscitation shows AF with ST depressions, no elevations.
-Cardiac cath shows patent HOWARD to LAD, occluded SVG to OM (known from 2011), occluded SVG to D1, occluded SVG to RCA, patent LCx/OM stents, 80-90% ISR of ostial/proximal LMCA stents.
-S/P IVUS guided PCI to 80-90% LMCA ISR lesion (Xience Skypoint 3.25 x 18 DOMINIQUE, post dilated with 3.25 NCB).
-Antithrombotic therapy with clopidogrel and apixaban. Hold aspirin.
#Ischemic cardiomyopathy
-Uncertain duration.
-LVEF 31% on DH echo.
-GDMT as hemodynamics will tolerate.
-Dapagliflozin 10 mg daily starting this AM.
-Tolerating carvedilol 12.5 mg BID.
-Start sacubatril-valsartan 24/26 mg BID today.
-Monitor renal function/BP.
#Neuro status/CVA
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
-The patient scored poorly on his cognitive testing.
-He is alert but clearly does not comprehend his situation.
-Defer to neuro.
#Atrial flutter
-Slow ventricular response.
-[id number] at least 4 (HF/low EF, age2, vascular disease).
-Heparin gtt.
#Mixed hyperlipidemia
-Chronic.
-Possible statin intolerance.
-Outside records show that he is on alirocumab 150 mg q2 weeks.
-Total cholesterol = 200, LDL = 127, HDL = 57, Triglycerides = 81.
-Start low dose rosuvastatin 10 mg daily and assess response.
-Start ezetmibe 10 mg daily.
-If he is truly statin intolerant, we will consider bempadoic acid (outpatient).
#Dispo
-IVU status.
-Full code.
-Discharge planning.
Subjective/Interval History:
Cardiac catheterization yesterday revealed occluded SVG grafts with patent HOWARD to LAD.
Previously placed LCx stents were patent.
The LMCA/LCx stents shows 80-90% lesions in the ostial/proximal LMCA, subsequently treated with a Xience Skypoint 3.25 x 18 DOMINIQUE, post dilated with a 3.25 NCB.
LVEDP 25 mmHg at the time of procedure.
He tolerated the procedure well and was loaded with clopidogrel.
Per nursing notes, he self d/c'ed his PICC line overnight.
DATA:
Cardiac Catheterization/PCI, 07/23/2023:
CONCLUSIONS
1. Right dominant circulation with chronic total occlusion of the ostial RCA, ostial LAD and diagonal status post prior coronary artery bypass grafting surgery (patent HOWARD to LAD, occluded SVG to diagonal, occluded SVG to OM, occluded SVG to dRCA)
and prior atherectomy and PCI (Xience Rajani 2.25 x 28 DOMINIQUE to the distal circumflex into the OM, 2.5 x 28 Xience Alpine from the left main coronary artery into the circumflex, overlapping with the Rajani stent, and a Xience 3.0 x 8 DOMINIQUE at the ostium of
the left main coronary artery) with patent stents in the circumflex/OM but new, 80-90% in-stent restenosis of the ostial/proximal left main coronary artery, status post successful IVUS guided PCI (Xience Skypoint 3.25 x 18 DOMINIQUE, postdilated with a
3.25 NC balloon) with reduction in stenosis to 0%, maintaining EVERETT-3 flow.
2. Severely elevated filling pressures (LVEDP = 25 mmHg at 85.3 kg).
TTE, 07/17/2023:
CONCLUSIONS
Technically difficult study.
Severely reduced left ventricular systolic function. Left ventricular ejection
fraction is 31%.
Regional wall motion abnormalities consistent with CAD.
Severe hypokinesis of the apex and apical segments.
Inferolateral, anterior and anterolateral carlos moving best.
Mild to moderate mitral regurgitation.
Mild tricuspid regurgitation. Estimated pulmonary artery pressure of 36 mmHg.
No prior study available for comparison.
EEG, 07/17/2023:
LESS THAN 1 HOUR EEG REPORT
LESS THAN 1 HOUR EEG INTERPRETATION:
Moderately abnormal EEG for age due to diffuse bihemispheric slowing
CLINICAL CORRELATION:
This study was suggestive of mild diffuse cortical dysfunction without focal abnormality. No seizures were recorded.
Clinical correlation is advised.
Brain MRI, 07/20/2023:
IMPRESSION:
There is a 3 mm subacute nonhemorrhagic cortical infarct at the medial aspect of the right parietal convexity
There is mild cortical with mild nonspecific white matter changes as described above.
Physical Exam
Vital Signs/Labs
Vital Signs
Temp Pulse Resp BP Pulse Ox
36.9 C 80 20 108/98 94
07/24/23 06:13 07/24/23 06:00 07/24/23 06:00 07/24/23 06:00 07/24/23 06:00
07/22/23 07/23/23 07/24/23
11:59 11:59 11:59
Actual Weight 88.2 kg 85.5 kg
07/24/23 06:11
07/24/23 06:11
PT 16.0 Sec (11.4-14.6) H 07/20/23 04:36
INR 1.30 07/20/23 04:36
APTT Cancelled 07/23/23 19:45
Magnesium 2.0 mg/dl (1.6-2.3) 07/24/23 06:11
Triglycerides 94 mg/dl (10-149) 07/24/23 06:11
LDL Cholesterol, Calc 138 mg/dl 07/24/23 06:11
VLDL Cholesterol, Calc 18 mg/dl (0-30) 07/24/23 06:11
HDL Cholesterol 42 mg/dl 07/24/23 06:11
07/17/23 07/17/23
09:46 10:40
Pme-Q-Gdfrwdelzxk Pept 1210 Cancelled
Physical Exam
Constitutional: No acute distress and Comfortable
EENT: Anicteric and Moist mucous membranes
Cardiovascular: Rhythm & rate is regular, Pedal edema is absent, JVD pressure is normal, S1S2 is normal and Murmur/rub/gallop absent
Respiratory: Respiratory effort normal, Lungs clear to auscul., Wheeze Absent, Crackles Absent and Rhonchi Absent
GI: Soft, Distention absent, Flat, Non tender and Normal bowel sounds
Neuro/Psych: Alert and Oriented
Other: Cath Site (Right common femoral access site is C/D/I.)
Data Reviewed
-
Date of Service: July 24, 2023
Medical Decision Making: Reviewed Test Results, Independent Historian Assessment, Test Interpretation and Review of Case with other Provider
EKG: Tracing Personally Visualized and interpreted and Report Reviewed by me
Echo: Tracing Personally Visualized and interpreted and Report Reviewed by me
X-Ray/CT/US/MRI/NUC/PET: Image Personally Visualized and interpreted, Report Reviewed by me, Discussed with Patient and Discussed with Family
Medical Tests (PFT, Pathology etc): Image Personally Visualized and interpreted, Report Reviewed by me, Discussed with Patient and Discussed with Family
Labs: Labs Reviewed by me
Old Records: Reviewed
--- NOTE | 2023-07-24 07:59 | PTCARENOTE ---
Addendum entered by Raji Langley RN 07/24/23 16:10:
NIHSS 6
Original Note:
Pt received from rn night RN. Disoriented to time and situation. Oriented to self and place. NIHSS 5. Continuing NIHSS qshift and neuro checks. R groin dressing CDI. Neurovascular checks on RLE WDL. Pt continues on med sitter at this time,
requires frequent redirection. Pt self removed PICC overnight. Dressing on RUE CDI. Remains in Aflutter on perfect bind machine operator. HRs 80s. Continuing AC with Marlene. Assessment documented. Pt in bed, call menendez within reach.
[2023-07-24] MEDS: ELIQUIS 5 MG PO ×2 (08:14→20:47)
[2023-07-24] MEDS: PLAVIX 75 MG PO (08:14)
[2023-07-24] MEDS: FLOMAX 0.400000000000000022 MG PO (08:14)
[2023-07-24] MEDS: COREG 12.5 MG PO ×2 (08:14→20:46)
[2023-07-24] MEDS: LIDOCAINE 4% PATCH 1 PATCH TOPICAL (08:15)
[2023-07-24] MEDS: PROTONIX IV 40 MG IV (08:15)
[2023-07-24] MEDS: NSS (PRESERVATIVE FREE) 10 ML IV (08:15)
--- NOTE | 2023-07-24 09:07 | CON.MD ---
Consultation - Medical
-
Referring Provider:�Dr. Shani Armendariz
Chief Complaint:�Stroke
�
History of Present Illness:�78-year-old right-handed male with PMH (as below) presented to [facility] on on 07/17/2023 with V-fib arrest after syncopal episode while golfing. He received CPR, epinephrine, defibrillation and had return of
spontaneous circulation. He had a second episode of V-fib and was defibrillated. Echocardiogram with EF 31% no regional wall motion abnormalities consistent with CAD. Noted with acute heart failure with stage III diastolic dysfunction. EEG 07/16
with mild diffuse cortical dysfunction without focal abnormality and no seizures were recorded. There was leukocytosis with possible aspiration pneumonia and started on antibiotics. Intubated for acute hypoxic respiratory failure. Required
pressors for cardiogenic shock with concern for probable atrial fibrillation. Concern for mild anoxic brain injury versus stroke. MRI noting an ischemic stroke of the right parietal lobe. Per neurology this does not explain the patient's global
encephalopathy which is most likely from anoxia from cardiac arrest. Per neuro patient can be anticoagulated. Developed atrial flutter and placed on heparin. Repeat EEG on 07/22/2023 with no seizure activity and mild improvement of cortical
dysfunction from prior. Extubated 07/21. Had a cardiac catheterization on 07/23/2023 with PCI of the ostial proximal left main coronary artery. Spoke with Dr. Armendariz and patient removed his own feeding tube and PICC line. Is able to maintain
caloric intake at this time.
Patient is a poor historian, was able to get more background and verify fax with his daughter who is a neurosurgical physician inside sales assistant at [employer].
�
Past Medical History:�CAD, HLD
Procedure History:�CABG 1992, PCI stent x 2, hernia repair
Family History:�CVA
�
Social History:�
Functional Level Premorbidly:�Independent with all activities�
Functional Level Currently: Min assist bed mobility, mod assist transfers, mod assist of 2 ambulating 5 feet from chair to bed with rolling walker. Max assist upper and lower extremity dressing. Seen by speech and cleared for regular solid and
thin liquid diet. Does require ongoing speech for severe cognitive deficits.
�
Tobacco: Denies�
Alcohol: Occasional
Drug use:�Denies�
�
Lives with:�Spouse
24-hour assistance available:�No, patient's spouse has some cognitive concerns.
Number of floors:�4
# steps to enter:�5
# steps to second floor: Full flight
Potential First floor set up:�No
Driving:�Yes
Occupation:�Retired
�
�
Allergies:�
Allergy/AdvReac Type Severity Reaction Status Date / Time
shellfish derived Allergy Unknown Verified 07/17/23 11:10
�
Review of Systems:�
Constitutional: (x) abNormal _fatigue
Eye: (x) Normal _
Ear/Nose/Throat: (x) Normal _
Respiratory: (x) Normal _
Cardiovascular: (x) abNormal _cardiac arrest
Gastrointestinal: (x) Normal _
Genitourinary: (x) Normal _
Musculoskeletal: (x) Normal _
Integumentary: (x) Normal _
Neurologic: (x) abNormal _stroke with memory and right-sided weakness
Psychiatric: (x) Normal _
Endocrine: (x) Normal _
Hematologic/Lymphatic: (x) Normal _
Allergic/Immunologic: (x) Normal _
�
Medications:�
Active Current Visit Medication List
Category Date Time Status
0.9% Sodium Chloride 1000 ml [Nss] 1,000 ml Med 07/23/23 15:45 Active
IV PER PROTOCOL
0.9% Sodium Chloride [Nss (Preservative Free)] Med 07/18/23 08:00 Active
10 ml IV DAILY
Acetaminophen [Tylenol] Med 07/23/23 15:39 Active
650 mg PO Q4HPRN PRN
Apixaban [Eliquis] Med 07/24/23 08:00 Active
5 mg PO BID
Bisacodyl [Dulcolax] Med 07/17/23 12:31 Active
10 mg RECTAL [id number] PRN
Carvedilol [Coreg] Med 07/20/23 16:50 Active
12.5 mg PO BID
Clopidogrel Bisulfate [Plavix] Med 07/24/23 08:00 Active
75 mg PO DAILY
Docusate W/Senna [Senokot-S] Med 07/17/23 12:31 Active
1 tablet TUBE BIDPRN PRN
Flush (0.9% Sodium Chloride) [Flush (Nss)] Med 07/17/23 13:00 Active
See Dose Instructions IV PER PROTOCOL
Gabapentin [Neurontin] Med 07/24/23 06:58 Active
100 mg PO TIDPRN PRN
HydrALAZINE [Apresoline] Med 07/20/23 16:49 Active
5 mg IV Q6HPRN PRN
Lidocaine [Lidocaine 4% Patch] Med 07/19/23 13:00 Active
1 patch TOPICAL DAILY
Melatonin Med 07/23/23 22:00 Active
5 mg PO HS
Pantoprazole [Protonix IV] Med 07/18/23 08:00 Active
40 mg IV DAILY
Polyethylene Glycol Powder [Miralax] Med 07/17/23 12:31 Active
17 grams PO DAILYPRN PRN
Remove Patch [Remove Lidocaine Patch] Med 07/19/23 20:00 Active
See Dose Instructions REMOVE DAILY@1999
Tamsulosin [Flomax] Med 07/23/23 11:00 Active
0.4 mg PO DAILY
Vitals:�
Temp Pulse Resp BP Pulse Ox
98.3 F 76 20 132/72 94
07/24/23 07:59 07/24/23 08:14 07/24/23 06:00 07/24/23 08:14 07/24/23 06:00
Height 5 ft 9 in
Actual Weight 85.5 kg
Body Mass Index (BMI) 27.9
�
Physical Exam:�
General Appearance/Observation: Well-developed, well-nourished male in no apparent distress.�
Pain/Comfort Assessment: Denies�
Mood/Affect: Appropriate�
�
Integumentary/Operative Site:�
�� Pressure Ulcer Evaluation: absent over heels.�
Eyes: Conjunctiva/Lids: normal���� Pupils: pupils equal round and reactive to light and Accommodation�
Ears/Nose/Throat: oral mucosa moist,� throat clear.������������ Lips/Teeth/Gums: normal�
Neck: No muscle spasm or tenderness�
Cardiovascular: Heart: regular, no murmur�
Pulses: dorsalis pedis 2+ bilaterally�
Respiratory: Respiratory Effort/Chest Expansion: normal������� Auscultation: Clear to auscultation bilaterally�
Gastrointestinal: abdomen not tender, no distension, normal abdominal bowel sounds
Genitourinary: No Kaur�
Extremities:�Edema: None�Cyanosis: None�Trophic�changes: None
�
Neurology Exam:
Orientation: Alert, Oriented to self and hospital. Thinks the year is 1956, off by 1 day for the day of week.�
Memory: Impaired
Repetition: Intact
Comprehension: Impaired
Two step command: Impaired, repeat acquired frequent verbal cues
-Was 1 hour off on reading clock
Cranial Nerves:
�� CNII:�Pupillary light reflex: Intact����Visual Field: Intact
�� CN III, IV, : Extraocular muscles: Intact�
�� CN V:�Facial Sensation�at�Forehead: Intact,�Maxilla: Intact,�Mandible: Intact
�� CN VII:�Facial movement: Symmetric
�� CN VIII:�Hearing: Normal
�� CN IX/X:�Speech & swallow: Normal,�Position of Uvula: Midline
�� CN XI:�Shoulder shrug: Symmetric
�� CN XII:�Tongue protrusion: Midline
Sensory:
�� Light touch: Intact in bilateral upper and lower extremities
�
Reflexes:
�� Biceps: 2+ bilaterally
�� Brachioradialis: 2+ bilaterally
�� Triceps: 2+ bilaterally
�� Patellar: 2+ bilaterally
�� Achilles: 2+ bilaterally
�� Babinski: Down going bilaterally
�� Clonus: None
�� Sindi: Negative bilaterally�
Cerebellar: Dysmetria/Ataxia: None�
Musculoskeletal:Motor: (Manual muscle scale 0-5)�
Muscle SA EF WE EE FF FA HF KE DF EHL PF
Right� 5 5 5 5 5 5 5 5 5 5 5
Left 5 5 5 5 5 5 5 5 5 5 5
�
Tone: Normal in all extremities�
Range of Motion: Passively within normal limits in all extremities�
�
Lab Results
Laboratory Data
07/24/23 06:11
07/24/23 06:11
PT 16.0 Sec (11.4-14.6) H 07/20/23 04:36
INR 1.30 07/20/23 04:36
APTT Cancelled 07/23/23 19:45
Total Bilirubin 0.8 mg/dl (0.2-1.3) 07/19/23 12:40
Direct Bilirubin 0.6 mg/dl (0.0-0.4) H 07/18/23 03:49
AST 49 U/L (17-59) 07/19/23 12:40
ALT 45 U/L (0-50) 07/19/23 12:40
Alkaline Phosphatase 56 U/L (38-126) 07/19/23 12:40
Total Protein 6.2 g/dl (6.3-8.2) L 07/19/23 12:40
Albumin 3.2 g/dl (3.5-5.0) L 07/19/23 12:40
�
Diagnostic Results: as per HPI�
�
Assessment
78-year-old R-handed M PMH (CAD, HLD) with 07/17/2023 V-fib arrest requiring CPR and defibrillation for V-fib, acute heart failure with stage III diastolic dysfunction, aspiration pneumonia, acute hypoxic respiratory failure requiring intubation,
cardiogenic shock, atrial fibrillation/atrial flutter, right parietal lobe infarction, likely anoxic brain injury from cardiac arrest, status post cardiac catheterization on 07/23/2023 with PCI of the ostial proximal left main coronary artery
resulting in ADL, ambulatory, and cognitive dysfunction.
Plan�
PM&R PT/OT to increase independence with ADLs, improve balance, coordination, endurance, strength, mobility, community reintegration, decreased burden of care on others and family education.�
CVA: Secondary prophylaxis with Eliquis, statin, and blood pressure control (SBP less than 180 and diastolic less than 100 to participate with therapy for ischemic stroke). Continue to monitor neurologic status.�
Cognitive dysfunction: Thought secondary to anoxic brain injury with cardiac arrest
HTN: Coreg, monitor closely. Stop IV as needed hydralazine, can make p.o. if needed.
HLD: Not on medication
Coronary artery disease status post PCI: Plavix, statin, beta-devon�
Atrial fibrillation/flutter:�Eliquis anticoagulation and rate control with Coreg.�������������������������������������������
Acute diastolic CHF: EF 31%, beta devon, monitor fluid status�
Aspiration pneumonia: Completed antibiotics.� Monitor
Acute hypoxic respiratory failure: Resolved
Macrocytic anemia: Check B12 and folate. Continue to monitor.�
Thrombocytopenia: Resolved. Continue to monitor.
FEN: Regular diet
-Hypokalemia resolved
Psych: Psychology consult.� Monitor mood, medications as needed.�
Skin: monitor for pressure sores/rashes/lesions.�
Pain: acetaminophen as needed.� Gabapentin 100 mg as needed.
Bowel: Colace and Senna, PRN bisacodyl.�
Bladder: Time void, PVRs, PRN straight cath.� On Flomax
GI Prophylaxis: Pantoprazole�
DVT Prophylaxis: Mechanical and Eliquis.�
Pulmonary: Incentive spirometry�
Safety: Continue to reinforce assistance with all transfers.�
Code Status:�Limited DNR�
Dispo (date/plan/equipment needs): Home with family care versus assisted living.� Social history reviewed.�
Functional and Medical Goals:�Modified Independent with ADL�s, ambulation, transfers�
Discharge Destination: Acute inpatient rehabilitation when medically stabilized. Discussed at length with patient and his daughter. Discussed options and care plan.
A total of 80 minutes were spent with the patient preparing for the evaluation, obtaining history, performing examination and evaluation, counseling, data review, case management, care coordination, food service order clerk, and EMR documentation.
�
Summary of recommendations:
Discharge Destination:�Acute inpatient rehabilitation when medically stable�
CVA: Secondary prophylaxis with Eliquis, statin, and blood pressure control (SBP less than 180 and diastolic less than 100 to participate with therapy for ischemic stroke). Continue to monitor neurologic status.�
Cognitive dysfunction: Thought secondary to anoxic brain injury with cardiac arrest
HTN: Stop IV as needed hydralazine, can make p.o. if needed.�����������������������������������������
Acute diastolic CHF: EF 31%, beta devon, monitor fluid status�
Aspiration pneumonia: Completed antibiotics.� Monitor
Acute hypoxic respiratory failure: Resolved
Macrocytic anemia: Check B12 and folate. Continue to monitor.�
Bowel: Colace and Senna, PRN bisacodyl.�
Bladder: Time void, PVRs, PRN straight cath.� On Flomax
DVT Prophylaxis: Mechanical and Eliquis.�
�Thank you for allowing me to care for your patient. Please contact me with any questions or concerns.
--- NOTE | 2023-07-24 14:53 | PTCARENOTE ---
Pt assisted back to bed from chair. Attends changed d/t incontinence. Loose BM x 1. R groin noted to have some new ecchymosis down to penis. R groin appears swollen and slightly firm. Cardiology and Hospitalist aware. Cardiology BROACHING MACHINE SET UP OPERATOR at bedside to
assess groin c/f developing hematoma. Per BROACHING MACHINE SET UP OPERATOR continue to monitor. Dr. Alfaro to assess groin later today. Pt sleeping in bed with family at bedside.
--- NOTE | 2023-07-24 15:09 | CM ---
CM following re: discharge planning.
Reviewed pt's chart, met with pt and spoke to pt's daughters to update on discharge plan progress.
CM spoke to [facility] rehab chemical sales representative Renetta, updated pt's clinical faxed and Renetta confirmed that [facility] is medically stable.
D/C plan: [facility] rehab when pt is medically stable.
CM will follow to assist pt with discharge to [facility] rehab.
[2023-07-24] MEDS: OCEAN, SALINE MIST NASAL ×2 (15:29→21:15)
[2023-07-24] MEDS: TYLENOL 650 MG PO (16:17)
--- NOTE | 2023-07-24 17:45 | PTCARENOTE ---
Report called to IVU RN. Pt transported to [id number].
--- NOTE | 2023-07-24 19:35 | PTCARENOTE ---
Received patient transferred from ICU to room 2241. No changes noted from physical assessment since previous nurse's assessment. NIH stroke scale done with oncoming shift. Patient has difficulty concentrating and completing some tasks but neuro
status is unchanged. Patient's daughter is in the room visiting. Med sitter in place for patient safety, bed alarm in place and activated, call menendez in reach.
[2023-07-24] MEDS: ENTRESTO 24 MG/26 MG 1 TAB PO (20:47)
[2023-07-24] MEDS: NEURONTIN 100 MG PO (21:13)
[2023-07-24] MEDS: MELATONIN PO (21:13)
[2023-07-25] VITALS (13 sets, daily range): BP systolic 98–122; BP diastolic 55–68; PULSE 60–62; O2SAT 98; BMI 27.2
--- NOTE | 2023-07-25 01:15 | PTCARENOTE ---
Patient continues to be restless and impulsive, med sitter and bed alarm maintained for safety.
--- NOTE | 2023-07-25 06:34 | W.PN.HOSP.TC ---
Today's Communication/Plan
-
CBC and BMP in am
Right groin, no swelling, mild bruise
c/w PT and rehab planning
NPO for possible cardiac procedure
Assessment / Plan
Assessment / Plan
Physical Exam
General: Awake, on nasal O2, no acute distress
HEENT: Normocephalic, Atraumatic, EOMI, MMM
Respiratory: no wheezes or rales.
Cardiac: Normal S1/S2,
GI: Soft, Nontender, Nondistended, Normal Bowel Sounds
Extremities: No Clubbing, Cyanosis, or Edema. R groin no swelling , mild bruise
Neuro: He followed simple commands. Forgetful and mildly confused.
Psych: no agitation this morning
78-year-old male with a past medical history of coronary artery disease status post CABG 1992, status post PCI with stent placement x 2, and hyperlipidemia presents after having outside hospital V-fib arrest. Apparently patient was golfing, and had
a witnessed syncopal episode. Police found him to be in V-fib arrest, he was shocked. When EMS arrived, he was in PEA rhythm. He received CPR, epinephrine, with ROSC. Temporary subglottic airway was placed. En route to the hospital, he had
another episode of V-fib, and was defibrillated again. He received 2 more doses of epinephrine, ROSC was obtained. Patient was intubated in the ER, and currently on a fentanyl drip. TTM was began in the ER.
#V-fib arrest/ Out of hospital sudden cardiac arrest
No recurrent arrhythmias.
s/p IV heparin.
Left Cardiac catheterization on07/22, status post successful stenting of proximal/ostial left main coronary artery by Dr Alfaro, no complications reported. on Plavix.
Echo w/ EF 31%,
Plan for ICD, he is NPO this morning
Records from [facility]
Extubated 07/21
S/p dopamine drip, Levophed drip
Speech consulted, ok for regular diet.
Appreciate ICU doctor, cardiology, neurology help
#Cardiogenic shock
S/p dopamine drip, s/p Levophed drip
Off pressers now
#Acute hypoxic respiratory failure due to cardiac arrest, resolved. Extubated 07/21, on room air now.
Repeat chest x-ray no consolidation, n acute cardiopulmonary process. No worsening hypoxia.
# Hypokalemia, replace
# Confusion, likely combination of mild anoxic encephalopathy post cardiac arrest and stroke
c/w rehab.
#CAD status post CABG 1992, PTCA 2011
Positive troponin as NSTEMI and non-[place] myocardial injury from cardiac arrest /shocks. Left Cardiac catheterization on07/22, status post successful stenting of proximal/ostial left main coronary artery by Dr Alfaro, no complications reported. on
Plavix.
Records from [place] reviewed, Echo: Stress test: 'Refused stress test.'
c/w Plavix
# Atrial flutter with rate controlled.
S/p IV heparin, on Eliquis. c/w BB.
# 3 mm subacute nonhemorrhagic cortical infarct at the medial aspect of the right parietal convexity
c/w Eliquis.
[id number] around 4
d/w Dr Lal
PT/OT.
Appreciate neurology help
#Hyperlipidemia
Intolerant of statins
#Leukocytosis, resolved
Chest x-ray shows possible aspiration, finished empiric Zosyn
# Thrombocytopenia, resolving
#Metabolic acidosis
Lactic acid normalized
#Hyperglycemia
Hemoglobin A1c 5.5, Not diabetic.
#Mildly elevated LFTs
DVT prophylaxis� Eliquis.
GGI prophylaxis- Protonix
Okay for cardioversion and defibrillation, but no CPR
Total time spent to see the patient on the floor, examine the patient, review data and lab results, discuss treatment plan with patient, consultants, family, nursing staff around 57 minutes.
Anticipated Discharge: 24 - 48 hours
Subjective/Interval History
-
Date of Service: July 25, 2023
He denies chest pain or sob
Objective Data
-
Vital Signs:
Vital Signs
Temp Pulse Resp BP Pulse Ox
98.6 F 78 20 105/61 97
07/24/23 23:23 07/25/23 04:20 07/24/23 23:23 07/25/23 04:20 07/24/23 23:23
I&O
07/23/23 07/24/23 07/25/23
06:59 06:59 06:59
Intake Total 1891 / 1904 1125 / 1125 480 / 480
Output Total 1150 / 1150 550 / 550 600 / 600
Balance 741 / 754 575 / 575 -120 / -120
--- NOTE | 2023-07-25 08:20 | PTCARENOTE ---
Discussed NPO status with daughter Joanne and full DNR status. Mcgrady text sent to Dr Mcleod as follows:
Good morning! This is the nurse for Mr Lane in 2240, his daughter Joanne called ([phone]) and she wants to know why he is NPO (I was told it was for possible ICD but daughter said ICD was not an option). Also, she wants to make him a
full DNR (he is limited DNR now).
[2023-07-25] MEDS: ENTRESTO 24 MG/26 MG 1 TAB PO ×2 (08:26→20:28)
[2023-07-25] MEDS: PROTONIX IV 40 MG IV (08:27)
[2023-07-25] MEDS: PLAVIX 75 MG PO (08:27)
[2023-07-25] MEDS: COREG 12.5 MG PO ×2 (08:27→20:28)
[2023-07-25] MEDS: FARXIGA 10 MG PO (08:27)
[2023-07-25] MEDS: ELIQUIS 5 MG PO ×2 (08:27→20:28)
[2023-07-25] MEDS: FLOMAX 0.400000000000000022 MG PO (08:27)
[2023-07-25] MEDS: NSS (PRESERVATIVE FREE) 10 ML IV (08:28)
[2023-07-25] MEDS: OCEAN, SALINE MIST 2 SPRAYS NASAL ×3 (08:29→22:11)
--- NOTE | 2023-07-25 08:29 | W.PN.CD ---
Today's Communication / Plan
-
No role for ICD at this time (per family discussion).
Patient is now DNR.
Discharge planning (acute rehab).
Impression / Plan
-
Impression/Plan: 78M with established CAD (CABG '93 with subsequent PCIs) with resuscitated VF arrest (AED shock).
#Out of hospital cardiac arrest/NSTEMI
-Acute.
-VF by report, treated with AED shock.
-Patient suffered PEA and a second VF arrest en route to hospital.
-TTM started on arrival to ICU, rewarmed starting on 07/19/2023.
-Troponin peaked at 19.
-EKG post resuscitation shows AF with ST depressions, no elevations.
-Cardiac cath shows patent HOWARD to LAD, occluded SVG to OM (known from 2011), occluded SVG to D1, occluded SVG to RCA, patent LCx/OM stents, 80-90% ISR of ostial/proximal LMCA stents.
-S/P IVUS guided PCI to 80-90% LMCA ISR lesion (Xience Skypoint 3.25 x 18 DOMINIQUE, post dilated with 3.25 NCB).
-Antithrombotic therapy with clopidogrel and apixaban. Hold aspirin.
-After discussion with EP, they recommend proceeding with secondary prevention ICD as they arrest cannot be absolutely attributed to the treated coronary lesion.
-Discussed with Joanne ([facility] POA). After she discussed with family, the would prefer that the patient not receive an ICD as he would likely not want to survive further cognitive insult. Family feels that if his cognition improves, we can
re-evaluate this decision on an elective basis.
#Ischemic cardiomyopathy
-Uncertain duration.
-LVEF 31% on DH echo.
-GDMT as hemodynamics will tolerate.
-Dapagliflozin 10 mg daily starting this AM.
-Tolerating carvedilol 12.5 mg BID.
-Start sacubatril-valsartan 24/26 mg BID today.
-Monitor renal function/BP.
#Neuro status/CVA
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
-The patient scored poorly on his cognitive testing.
-He is alert but clearly does not comprehend his situation.
-Defer to neuro.
#Atrial flutter
-Slow ventricular response.
-[id number] at least 4 (HF/low EF, age2, vascular disease).
-Heparin gtt.
#Mixed hyperlipidemia
-Chronic.
-Possible statin intolerance.
-Outside records show that he is on alirocumab 150 mg q2 weeks.
-Total cholesterol = 200, LDL = 127, HDL = 57, Triglycerides = 81.
-Start low dose rosuvastatin 10 mg daily and assess response.
-Start ezetmibe 10 mg daily.
-If he is truly statin intolerant, we will consider bempadoic acid (outpatient).
#Dispo
-IVU status.
-Full code.
-Discharge planning.
Subjective/Interval History:
Patient remains impulsive.
EP discussed yesterday. They feel strongly that the patient should have an ICD for secondary prevention if the family wishes to continue full care.
Patient denies any complaints.
DATA:
Cardiac Catheterization/PCI, 07/23/2023:
CONCLUSIONS
1. Right dominant circulation with chronic total occlusion of the ostial RCA, ostial LAD and diagonal status post prior coronary artery bypass grafting surgery (patent HOWARD to LAD, occluded SVG to diagonal, occluded SVG to OM, occluded SVG to dRCA)
and prior atherectomy and PCI (Xience Rajani 2.25 x 28 DOMINIQUE to the distal circumflex into the OM, 2.5 x 28 Xience Alpine from the left main coronary artery into the circumflex, overlapping with the Rajani stent, and a Xience 3.0 x 8 DOMINIQUE at the ostium of
the left main coronary artery) with patent stents in the circumflex/OM but new, 80-90% in-stent restenosis of the ostial/proximal left main coronary artery, status post successful IVUS guided PCI (Xience Skypoint 3.25 x 18 DOMINIQUE, postdilated with a
3.25 NC balloon) with reduction in stenosis to 0%, maintaining EVERETT-3 flow.
2. Severely elevated filling pressures (LVEDP = 25 mmHg at 85.3 kg).
TTE, 07/17/2023:
CONCLUSIONS
Technically difficult study.
Severely reduced left ventricular systolic function. Left ventricular ejection
fraction is 31%.
Regional wall motion abnormalities consistent with CAD.
Severe hypokinesis of the apex and apical segments.
Inferolateral, anterior and anterolateral carlos moving best.
Mild to moderate mitral regurgitation.
Mild tricuspid regurgitation. Estimated pulmonary artery pressure of 36 mmHg.
No prior study available for comparison.
EEG, 07/17/2023:
LESS THAN 1 HOUR EEG REPORT
LESS THAN 1 HOUR EEG INTERPRETATION:
Moderately abnormal EEG for age due to diffuse bihemispheric slowing
CLINICAL CORRELATION:
This study was suggestive of mild diffuse cortical dysfunction without focal abnormality. No seizures were recorded.
Clinical correlation is advised.
Brain MRI, 07/20/2023:
IMPRESSION:
There is a 3 mm subacute nonhemorrhagic cortical infarct at the medial aspect of the right parietal convexity
There is mild cortical with mild nonspecific white matter changes as described above.
Physical Exam
Vital Signs/Labs
Vital Signs
Temp Pulse Resp BP Pulse Ox
37.1 C 80 14 109/64 94
07/25/23 06:40 07/25/23 08:26 07/25/23 06:40 07/25/23 08:26 07/25/23 06:40
07/23/23 07/24/23 07/25/23
11:59 11:59 11:59
Actual Weight 85.5 kg
07/24/23 06:11
07/24/23 06:11
PT 16.0 Sec (11.4-14.6) H 07/20/23 04:36
INR 1.30 07/20/23 04:36
APTT Cancelled 07/23/23 19:45
Magnesium 2.0 mg/dl (1.6-2.3) 07/25/23 04:26
Triglycerides 94 mg/dl (10-149) 07/24/23 06:11
LDL Cholesterol, Calc 138 mg/dl 07/24/23 06:11
VLDL Cholesterol, Calc 18 mg/dl (0-30) 07/24/23 06:11
HDL Cholesterol 42 mg/dl 07/24/23 06:11
07/17/23 07/17/23
09:46 10:40
Rke-T-Wezemzpkbzl Pept 1210 Cancelled
Physical Exam
Constitutional: No acute distress and Comfortable
EENT: Anicteric and Moist mucous membranes
Cardiovascular: Rhythm & rate is regular, Pedal edema is absent, JVD pressure is normal, S1S2 is normal and Murmur/rub/gallop absent
Respiratory: Respiratory effort normal, Lungs clear to auscul., Wheeze Absent, Crackles Absent and Rhonchi Absent
GI: Soft, Distention absent, Flat, Non tender and Normal bowel sounds
Neuro/Psych: Alert and Oriented (To self.)
Other: Cath Site (Right femoral access site with small ecchymosis, no hematoma.)
Data Reviewed
-
Date of Service: July 25, 2023
Medical Decision Making: Reviewed Test Results, Independent Historian Assessment and Test Interpretation
EKG: Tracing Personally Visualized and interpreted and Report Reviewed by me
Echo: Tracing Personally Visualized and interpreted and Report Reviewed by me
X-Ray/CT/US/MRI/NUC/PET: Image Personally Visualized and interpreted, Report Reviewed by me, Discussed with Physician, Discussed with Patient and Discussed with Family
Medical Tests (PFT, Pathology etc): Image Personally Visualized and interpreted, Report Reviewed by me, Discussed with Physician, Discussed with Patient and Discussed with Family
Labs: Labs Reviewed by me
--- NOTE | 2023-07-25 09:06 | PTCARENOTE ---
Dr Alfaro on phone with daughter Joanne to clarify ICD placement and plan of care including DNR status
--- NOTE | 2023-07-25 09:09 | PTCARENOTE ---
Bilateral groin rash noted, notified the hospitalist via tiger text:
he looks like bilateral groin yeast rash...please advise if you want to treat.
--- NOTE | 2023-07-25 09:19 | PTCARENOTE ---
will hold lasix, kcl, and diamox for now per Dr Potter Nephrololgy.
[2023-07-25] MEDS: LOTRIMIN 1% CREAM 1 APPLIC TOPICAL (10:11)
[2023-07-25] MEDS: LIDOCAINE 4% PATCH TOPICAL (10:38)
--- NOTE | 2023-07-25 10:55 | CM ---
called [facility], left message. await confirmation of dc and bed avail.
--- NOTE | 2023-07-25 11:33 | CM ---
bed confirmed for tomorrow 07/25 to go to [facility]. to make arrangements for ambul transport.
--- NOTE | 2023-07-25 12:00 | PTCARENOTE ---
Prior assessment unchanged, pt is no longer incontinent, oriented to self, place, date but not situation. Pt is jovial and joking with visitors.
--- NOTE | 2023-07-25 14:12 | PTCARENOTE ---
Discussed code status with Daughter Joanne. Pt has improved tremendously and is a little more oriented and ambulatory. Currently limited DNR. Joanne will discuss code status with the family and report back to me.
--- NOTE | 2023-07-25 16:00 | PTCARENOTE ---
Prior assessment unchanged. Extensive education completed with family about plan of care.
--- NOTE | 2023-07-25 16:17 | W.DCSUMMARY ---
Discharge Summary
Discharge Data
Date of Admission: 07/17/23
Date of Discharge: 07/26/23
-
Pending Results: No
Hospital Course
78 years old old male presented to the hospital by ambulance after having outside hospital V-fib arrest. Apparently patient was golfing, and had a witnessed syncopal episode. Police found him to be in V-fib arrest, he was shocked. When EMS
arrived, he was in PEA rhythm. He received CPR, epinephrine, with samaritan of circulation. Temporary subglottic airway was placed. En route to the hospital, he had another episode of V-fib, and was defibrillated again. He received 2 more
doses of epinephrine, ROSC was obtained. Patient was intubated in the ER. Targeted Temperature management (TTM) protocol was initiated in the ER. He had positive troponin at 0.109 but later went to 19.8. Echocardiogram showed severely reduced
left ventricular systolic function with ejection fraction around 31%, regional wall motion abnormalities consistent with coronary artery disease, mild to moderate mitral regurgitation, mild tricuspid regurgitation. Patient was maintained on
pressure support in the beginning. He was noted to have atrial flutter he had. Brain imaging studies that showed a 3 mm subacute nonhemorrhagic cortical infarct. Patient was evaluated by neurologist. Patient started to show mild neurological
improvement. He was able to follow command was extubated. He was started on intravenous heparin after clearance from neurologist. He underwent left heart catheterization by Dr. Hicks with successful stenting of proximal/ostial left main coronary
artery. Patient was started on Plavix. Heparin was stopped and he was started on Eliquis. Patient was followed by physical therapy. Speech therapy evaluated the patient he was placed on regular diet. Physical therapy recommended assisted
facility/acute rehab. Patient continued to have mild cognitive impairment with memory impairment. Environmental Property Assessor discussed with the family for defibrillator placement. Decision was deferred to outpatient evaluation and pending improvement in
cognitive function. Patient was started on new medications for ischemic cardiomyopathy including Entresto and dapagliflozin. He remained hemodynamically stable. Patient was discharged to rehab in a stable condition.
Physical Exam
General: Awake, on nasal O2, no acute distress
HEENT: Normocephalic, Atraumatic, EOMI, MMM
Respiratory: no wheezes or rales.
Cardiac: Normal S1/S2,
GI: Soft, Nontender, Nondistended, Normal Bowel Sounds
Extremities: No Clubbing, Cyanosis, or Edema. R groin no swelling , mild bruise
Neuro: He followed simple commands. Forgetful and mildly confused at times.
Psych: no agitation.
Total discharge time spent to see the patient, examine the patient on the floor, review data and lab results, discuss discharge plan with patient family, case maker, consultants nursing staff around 67 minutes
Discharge Plan
-
Patient Disposition: Acute Rehab Facility
Discharge Diagnosis/Procedures: Outside hospital cardiac arrest/cardiogenic shock
Non-ST elevation myocardial infarction /ischemic cardiomyopathy status post angioplasty with stent to left main artery
Acute hypoxic respiratory failure, resolved
Hypokalemia
Toxic encephalopathy secondary to stroke and mild anoxic encephalopathy postcardiac
Atrial flutter
Non-hemorrhagic cortical infarct at the medial aspect of the right parietal convexity
Lactic acidosis, resolved
Thrombocytopenia, resolving
Ischemic transaminitis, resolving
Diet: Low Cholesterol
Driving Restrictions: No driving for 24 hours
Other Services: Cardiac Rehab
Stand Alone Forms: DC Instructions- Cath/EP Lab
Referrals:
Acute Rehab, [facility] [Other]
Jitendra Almendarez MD [Active] - in one month
Louis Mueller [Family Provider] - in one to two weeks
Cady Powers CRNP [Specified Professional Personl] - 08/13/23 1:40 pm
Prescriptions:
New
polyethylene glycol 3350 [HealthyLax] 17 gram Powder In Packet
17 g PO DAILYPRN PRN (Reason: constipation) Qty: 10 0RF
acetaminophen 325 mg Tablet
650 mg PO Q4HPRN PRN (Reason: mild to mod pain) Qty: 10 0RF
clopidogrel 75 mg Tablet
75 mg PO DAILY Qty: 30 0RF
Eliquis 5 mg Tablet
5 mg PO BID Qty: 60 0RF
gabapentin 100 mg Capsule
300 mg PO HSPRN PRN (Reason: Agitation,insomnia) Qty: 10 0RF
dapagliflozin propanediol 10 mg Tablet
10 mg PO DAILY Qty: 30 0RF
Entresto 24-26 mg Tablet
1 tab PO BID Qty: 60 0RF
clotrimazole [Athlete's Foot (clotrimazole)] 1 % Cream
1 applic topical BID Qty: 1 0RF
Rx Instructions:
Apply to both groins
carvedilol 6.25 mg Tablet
6.25 mg PO BID Qty: 60 0RF
Continued
Praluent Pen 150 mg/mL Pen Injector
150 mg SC Q14D
Discontinued
fluticasone propionate [Flonase] 50 mcg/actuation [place],Suspension
2 spray INTRANASAL DAILY
Discharge Orders:
Discharge Patient (As Directed); Ordered 07/26/23
Ordered By: Shani Armendariz
Care Plan Goals
Care Plan Goals:
Problem: Readiness for enhanced knowledge related to diagnosis and treatment plan
Goal: Understand your diagnosis and treatment plan needs, including medications if applicable.
Instructions: Know your diagnosis, underlying causes and treatment plan options, including medications if applicable. Consult with your health care team to learn about your diagnosis and treatment plan, including medications if applicable.
Discharge Date and Time
Print Language: SAO TOMEAN
--- NOTE | 2023-07-25 16:45 | PTCARENOTE ---
Dr Neely responded to text about no urine output. He states:
'she is oligouric there is no need to straight cath. she had develoing renal failure'
--- NOTE | 2023-07-25 18:24 | PTCARENOTE ---
Pt remains awake, alert, and playfully joking with staff. However, he is disoriented to place, date, time and birthday. He appears slightly more agitated than earlier. Will plan to put patient to bed at 2030 per family which is his normal
routine. Pt remains strong, no strength deficits noted.
[2023-07-25] MEDS: NEURONTIN 100 MG PO (22:11)
[2023-07-25] MEDS: MELATONIN 5 MG PO (22:11)
[2023-07-26 02:54] VITALS: BP 103/59
--- NOTE | 2023-07-26 03:01 | PTCARENOTE ---
Late note:Patient is being monitored as a 1:1 by staff at present, he has been forgetful and impulsive, confused and disoriented at times since the beginning of nite shift. Frequently pulling at monitor and undressing himself. Incontinent of urine
X1 and also using the urinal. He denies any complaints when questioned. A-fib on the monitor but had a brief period of SR.
[2023-07-26 07:39] VITALS: BMI 27.2
[2023-07-26 08:19] VITALS: BP 115/72
[2023-07-26] MEDS: FARXIGA 10 MG PO (08:56)
[2023-07-26] MEDS: PLAVIX 75 MG PO (08:56)
[2023-07-26] MEDS: ENTRESTO 24 MG/26 MG 1 TAB PO (08:56)
[2023-07-26] MEDS: FLOMAX 0.400000000000000022 MG PO (08:56)
[2023-07-26] MEDS: LOTRIMIN 1% CREAM 1 APPLIC TOPICAL (08:57)
[2023-07-26] MEDS: COREG 12.5 MG PO (08:57)
[2023-07-26] MEDS: LIDOCAINE 4% PATCH TOPICAL (08:57)
[2023-07-26] MEDS: ELIQUIS 5 MG PO (08:57)
[2023-07-26] MEDS: PROTONIX IV 40 MG IV (08:58)
[2023-07-26] MEDS: NSS (PRESERVATIVE FREE) 10 ML IV (08:58)
[2023-07-26] MEDS: OCEAN, SALINE MIST NASAL (08:58)
--- NOTE | 2023-07-26 09:04 | W.PN.CD ---
Addendum entered and electronically signed by Simon Grant MD 07/26/23 14:14:
I saw and examined the patient.
The RELASTER's note was reviewed and I agree with the note.
Comment: Patient left before I could examine, but I reviewed the plan with Lolita Brady.
Addendum entered and electronically signed by Mary Brady NP 07/26/23 10:53:
Pt. with periods of bradycardia. Will reduced coreg dose to 6.25mg po BID.
Original Note:
Today's Communication / Plan
-
plan for rehab today
OP follow up 08/13/23 140 pm with Cady Powers
Impression / Plan
-
Impression/Plan: 78M with established CAD (CABG ' with subsequent PCIs) with resuscitated VF arrest (AED shock).
#Out of hospital cardiac arrest/NSTEMI
-Acute.
-VF by report, treated with AED shock.
-Patient suffered PEA and a second VF arrest en route to hospital.
-TTM started on arrival to ICU, rewarmed starting on 07/19/2023.
-Troponin peaked at 19.
-EKG post resuscitation shows AF with ST depressions, no elevations.
-Cardiac cath shows patent HOWARD to LAD, occluded SVG to OM (known from 2011), occluded SVG to D1, occluded SVG to RCA, patent LCx/OM stents, 80-90% ISR of ostial/proximal LMCA stents.
-S/P IVUS guided PCI to 80-90% LMCA ISR lesion (Xience Skypoint 3.25 x 18 DOMINIQUE, post dilated with 3.25 NCB).
-Antithrombotic therapy with clopidogrel and apixaban. Hold aspirin.
-After discussion with EP, they recommend proceeding with secondary prevention ICD as they arrest cannot be absolutely attributed to the treated coronary lesion.
-Dr. Alfaro discussed with Joanne ([facility]). After she discussed with family, the would prefer that the patient not receive an ICD as he would likely not want to survive further cognitive insult. Family feels that if his cognition
improves, we can re-evaluate this decision on an elective basis.
#Ischemic cardiomyopathy
-Uncertain duration.
-LVEF 31% on echo.
-GDMT as hemodynamics will tolerate.
-Dapagliflozin 10 mg daily
-Tolerating carvedilol 12.5 mg BID.
-Start sacubatril-valsartan 24/26 mg BID .
-Monitor renal function/BP.
#Neuro status/CVA
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
-The patient scored poorly on his cognitive testing.
-He is alert but clearly does not comprehend his situation.
-Defer to neuro.
#Atrial flutter
-Slow ventricular response.
-[id number] at least 4 (HF/low EF, age3, vascular disease).
-on eliquis.
#Mixed hyperlipidemia
-Chronic.
-Possible statin intolerance.
-Outside records show that he is on alirocumab 150 mg q2 weeks.
-Total cholesterol = 200, LDL = 127, HDL = 57, Triglycerides = 81.
-Start low dose rosuvastatin 10 mg daily and assess response.
-Start ezetmibe 10 mg daily.
-If he is truly statin intolerant, we will consider bempadoic acid (outpatient).
#Dispo
-plan is for rehab later today.
Subjective/Interval History:
Patient remains impulsive.
Denies CP, palps, SOB.
DATA:
Cardiac Catheterization/PCI, 07/23/2023:
CONCLUSIONS
1. Right dominant circulation with chronic total occlusion of the ostial RCA, ostial LAD and diagonal status post prior coronary artery bypass grafting surgery (patent HOWARD to LAD, occluded SVG to diagonal, occluded SVG to OM, occluded SVG to dRCA)
and prior atherectomy and PCI (Xience Rajani 2.25 x 28 DOMINIQUE to the distal circumflex into the OM, 2.5 x 28 Xience Alpine from the left main coronary artery into the circumflex, overlapping with the Rajani stent, and a Xience 3.0 x 8 DOMINIQUE at the ostium of
the left main coronary artery) with patent stents in the circumflex/OM but new, 80-90% in-stent restenosis of the ostial/proximal left main coronary artery, status post successful IVUS guided PCI (Xience Skypoint 3.25 x 18 DOMINIQUE, postdilated with a
3.25 NC balloon) with reduction in stenosis to 0%, maintaining EVERETT-3 flow.
2. Severely elevated filling pressures (LVEDP = 25 mmHg at 85.3 kg).
TTE, 07/17/2023:
CONCLUSIONS
Technically difficult study.
Severely reduced left ventricular systolic function. Left ventricular ejection
fraction is 31%.
Regional wall motion abnormalities consistent with CAD.
Severe hypokinesis of the apex and apical segments.
Inferolateral, anterior and anterolateral carlos moving best.
Mild to moderate mitral regurgitation.
Mild tricuspid regurgitation. Estimated pulmonary artery pressure of 36 mmHg.
No prior study available for comparison.
EEG, 07/17/2023:
LESS THAN 1 HOUR EEG REPORT
LESS THAN 1 HOUR EEG INTERPRETATION:
Moderately abnormal EEG for age due to diffuse bihemispheric slowing
CLINICAL CORRELATION:
This study was suggestive of mild diffuse cortical dysfunction without focal abnormality. No seizures were recorded.
Clinical correlation is advised.
Brain MRI, 07/20/2023:
IMPRESSION:
There is a 3 mm subacute nonhemorrhagic cortical infarct at the medial aspect of the right parietal convexity
There is mild cortical with mild nonspecific white matter changes as described above.
Physical Exam
Vital Signs/Labs
Vital Signs
Temp Pulse Resp BP Pulse Ox
97.1 F 68 18 115/72 95
07/26/23 08:37 07/26/23 08:57 07/26/23 08:37 07/26/23 08:57 07/26/23 08:44
07/25/23 07/26/23 07/27/23
06:59 06:59 06:59
Actual Weight 83.461 kg
07/24/23 06:11
07/24/23 06:11
PT 16.0 Sec (11.4-14.6) H 07/20/23 04:36
INR 1.30 07/20/23 04:36
APTT Cancelled 07/23/23 19:45
Magnesium 2.0 mg/dl (1.6-2.3) 07/25/23 04:26
Triglycerides 94 mg/dl (10-149) 07/24/23 06:11
LDL Cholesterol, Calc 138 mg/dl 07/24/23 06:11
VLDL Cholesterol, Calc 18 mg/dl (0-30) 07/24/23 06:11
HDL Cholesterol 42 mg/dl 07/24/23 06:11
07/17/23 07/17/23
09:46 10:40
Yrt-[id number] Pept 1210 Cancelled
Physical Exam
Constitutional: No acute distress
Cardiovascular: Rhythm/rate is irregular
Respiratory: Respiratory effort normal and Rhonchi Present ( clear with cough )
Neuro/Psych: Alert
Data Reviewed
-
Date of Service: July 26, 2023
EKG: Other (Tele AF : 80's )
[2023-07-26 11:08] VITALS: BP 103/52
--- NOTE | 2023-07-26 12:27 | PTCARENOTE ---
Pt with heart rates transiently @40 within 2 hours of carvedilol dose. Pt asymptomatic, BP 103/52. Lolita Brady NP notified and came to see pt, carvedilol dose reduced to 6.25mg.
--- NOTE | 2023-07-26 12:51 | PTCARENOTE ---
Pt seen by . Pt walked in halls with RN and 2 assists, pt leans heavily to the right. Telemetry and IV device removed. Discharge instructions reviewed with pt's Neurology PA daughter. Pt had one:one nursing observation this morning. Report
called to Benita at [facility], some concern for his need for one to one observation, plan approved by them for his daughter to stay with him at [facility] for 2 nights. Pt left via ambulance stretcher.
== END 2023-07-26 12:55 | DRG 321 ==
LOC: IVU 12:02
PROVIDERS: Internal Medicine Cardiovascular Disease; Internal Medicine Critical Care Medicine; Nurse Practitioner Adult Health; ADMITTING PHYSICIAN Family Medicine; ATTENDING PHYSICIAN Internal Medicine; CONSULT PHYSICIAN Internal Medicine; CONSULT PHYSICIAN Internal Medicine Cardiovascular Disease; CONSULT PHYSICIAN Physical Medicine & Rehabilitation; CONSULT PHYSICIAN Student in an Organized Health Care Education/Training Program; EMERGENCY PHYSICIAN Emergency Medicine; FAMILY PHYSICIAN Internal Medicine Cardiovascular Disease
PROC: 03HY32Z Insertion of Monitoring Device into Upper Artery, Percutaneous Approach (ICD-10-PCS; 2023-07-17)
PROC: 5A1955Z Respiratory Ventilation, Greater than 96 Consecutive Hours (ICD-10-PCS; 2023-07-17)
PROC: 0BH18EZ Insertion of Endotracheal Airway into Trachea, Via Natural or Artificial Opening Endoscopic (ICD-10-PCS; 2023-07-17)
PROC: 02HV33Z Insertion of Infusion Device into Superior Vena Cava, Percutaneous Approach (ICD-10-PCS; 2023-07-17)
PROC: 4A023N7 Measurement of Cardiac Sampling and Pressure, Left Heart, Percutaneous Approach (ICD-10-PCS; 2023-07-23)
PROC: 027035Z Dilation of Coronary Artery, One Artery with Two Drug-eluting Intraluminal Devices, Percutaneous Approach (ICD-10-PCS; 2023-07-23)
PROC: B2181ZZ Fluoroscopy of Left Internal Mammary Bypass Graft using Low Osmolar Contrast (ICD-10-PCS; 2023-07-23)
PROC: B2131ZZ Fluoroscopy of Multiple Coronary Artery Bypass Grafts using Low Osmolar Contrast (ICD-10-PCS; 2023-07-23)
PROC: B241ZZ3 Ultrasonography of Multiple Coronary Arteries, Intravascular (ICD-10-PCS; 2023-07-23)
PROC: B2111ZZ Fluoroscopy of Multiple Coronary Arteries using Low Osmolar Contrast (ICD-10-PCS; 2023-07-23)
DX: I21.4 Non-ST elevation (NSTEMI) myocardial infarction (principal); G92.9 Unspecified toxic encephalopathy; I49.01 Ventricular fibrillation; I50.31 Acute diastolic (congestive) heart failure; J96.01 Acute respiratory failure with hypoxia; R57.0 Cardiogenic shock; J69.0 Pneumonitis due to inhalation of food and vomit; I63.9 Cerebral infarction, unspecified; I46.2 Cardiac arrest due to underlying cardiac condition; E87.20 Acidosis, unspecified; I25.810 Atherosclerosis of coronary artery bypass graft(s) without angina pectoris; G93.1 Anoxic brain damage, not elsewhere classified; T82.855A Stenosis of coronary artery stent, initial encounter; I48.92 Unspecified atrial flutter; Z51.5 Encounter for palliative care; Y83.1 Surgical operation with implant of artificial internal device as the cause of abnormal reaction of the patient, or of later complication, without mention of misadventure at the time of the procedure; I25.10 Atherosclerotic heart disease of native coronary artery without angina pectoris; R73.9 Hyperglycemia, unspecified; K21.9 Gastro-esophageal reflux disease without esophagitis; Z66 Do not resuscitate; I48.91 Unspecified atrial fibrillation; I11.0 Hypertensive heart disease with heart failure; D53.9 Nutritional anemia, unspecified; E87.6 Hypokalemia; D69.6 Thrombocytopenia, unspecified; I25.5 Ischemic cardiomyopathy; R74.01 Elevation of levels of liver transaminase levels; I27.20 Pulmonary hypertension, unspecified; E83.39 Other disorders of phosphorus metabolism; E78.2 Mixed hyperlipidemia; Z95.1 Presence of aortocoronary bypass graft; Z95.5 Presence of coronary angioplasty implant and graft
CPT/HCPCS: 31500; 36600; 51702; 70450; 70551; 71045; 72125; 74018; 80048; 80053; 80061; 81003; 82248; 82550; 82553; 82805; 82962; 83036; 83605; 83735; 83880; 84100; 84134; 84478; 84484; 85025; 85027; 85347; 85610; 85730; 86850; 86900; 86901; 87040; 87070; 87077; 87186; 87205; 92523; 92526; 92610; 92978; 93005; 93306; 93459; 94002; 94003; 95816; 96374; 96375; 97129; 97163; 97167; 97530; 97535; 99291; 99292; C1725; C1753; C1760; C1769; C1874; C1894; C9600; Q9967